=== PATIENT | female | born 1945 | race Caucasian/White ===

== ENCOUNTER → 2017-04-21 | Outpatient (CLI) | payer MEDICARE ==
--- NOTE | 2017-04-23 08:13 | MM ---
Reason for exam: screening (asymptomatic). Last mammogram was performed 1 year and 2 months ago. History: Patient is postmenopausal and has history of endometrial cancer at age 52. Family history of breast cancer in daughter at age 45. Benign right mammotome panel of the right breast, November 19, 2011. 2 benign cyst aspirations of the left breast. Benign excisional biopsy of the left breast. Took hormonal contraceptives for 3 years beginning at age 28. Physical Findings: A clinical breast exam by your physician is recommended on an annual basis and results should be correlated with mammographic findings. MG 3D Screening Mammo W/Cad Bilateral CC and MLO view(s) were taken. Prior study comparison: February 20, 2016, bilateral MG 3d screening mammo w/cad. November 21, 2014, bilateral MG screening mammo w CAD. November 18, 2013, bilateral digital screening mammo w/CAD. There are scattered fibroglandular densities. Finding: There are typically benign vascular calcifications in both breasts. Previous mammotome biopsy in the right breast. There is no discrete abnormality. ASSESSMENT: Benign, BI-RAD 2 RECOMMENDATION: Routine screening mammogram of both breasts in 1 year.
== END | disposition home or self-care (01) ==
LOC: RADMAMWWP 13:23
PROVIDERS: ATTEND Obstetrics & Gynecology
DX: Z12.31 Encounter for screening mammogram for malignant neoplasm of breast (principal); Z80.3 Family history of malignant neoplasm of breast
CPT/HCPCS: 77063; G0202

== ENCOUNTER → 2017-04-25 | Outpatient (CLI) | payer MEDICARE ==
--- NOTE | 2017-04-28 07:38 | BD ---
EXAMINATION TYPE: MG DEXA axial skeleton. DATE OF EXAM: 04/25/2017 COMPARISON: NONE CLINICAL HISTORY: 71-year-old female postmenopausal screening for osteoporosis Height: 65 Weight: 146.5 FRAX RISK QUESTIONS: Alcohol (3 or more units per day): no Family History (Parent hip fracture): no Glucocorticoids (More than 3mos): no (Ex: prednisone, prednisolone, methylprednisolone, dexamethasone, and hydrocortisone). History of Fracture in Adulthood: no Secondary Osteoporosis: 1. Type 1 Diabetes: no 2. Hyperthyroidism: no 3. Menopause before 45: no 4. Malnutrition: no 5. Chronic liver disease: no Rheumatoid Arthritis: no Current Tobacco Use: no RISK FACTORS HISTORY OF: Hip Fracture (Right/Left): no Spine Fracture: no History of Wrist Fracture: no Surgery to Spine/Hip(right/left)/Wrist (right/left): no Family History of Osteoporosis: no Active: yes Diet low in dairy products/other sources of calcium: no Postmenopausal woman: age 54 Lost more than 2 inches in height since high school: yes Frequent falls: no Poor Health: no Hyperparathyroidism: no Adrenal Insufficiency: no MEDICATIONS: vitamins, amlodipine, simvastatin, lisinopril, meclizine, xanax, aspirin, travatan Thyroid Medications: levothyroxine How Lon-4 years Additional History: EXAM MEASUREMENTS: Bone mineral densitometry was performed using the [employer] System. Bone mineral density as measured about the Lumbar spine is: ----- L1-L4(G/cm2): 1.440 T Score Values are as follows: ----- L2: 1.2 ----- L3: 2.9 ----- L4: 3.4 ----- L1-L4: 2.2 Bone mineral density baseline here Bone mineral density about the R hip (g/cm2): 0.904 Bone mineral density about the L hip (g/cm2): 0.897 T Score values are as follows: -----R Neck: -1.0 -----L Neck: -1.0 -----R Total: -0.8 -----L Total: -0.7 Bone mineral density baseline IMPRESSION: Normal (Values between +1 and -1 indicate normal bone mass). Note that measurements at the hips bord kathryn on osteopenia. Consider repeating this study in 5 years or sooner if there is some new clinica l indication. NOTE: T-SCORE=SD OF THE YOUNG ADULT MEAN.
== END | disposition home or self-care (01) ==
LOC: RADBDWWP 13:09
PROVIDERS: ATTEND Family Medicine
DX: M85.851 Other specified disorders of bone density and structure, right thigh (principal); M85.852 Other specified disorders of bone density and structure, left thigh
CPT/HCPCS: 77080

== ENCOUNTER 2017-11-12 11:27 | Emergency (ER) | payer MEDICARE ==
--- NOTE | 2017-11-12 11:48 | ED ---
General Adult HPI - General Chief complaint: Upper Respiratory Infection Stated complaint: Chest pain Time Seen by Provider: 11/12/17 11:37 Source: patient, RN notes reviewed Mode of arrival: ambulatory Limitations: no limitations - History of Present Illness Initial comments: Patient 72-year-old female presenting to the emergency room today with a chief complaint of cough congestion body aches and chills over the last 4 days. Patient mitts that last night she experienced a chest pressure anteriorly wrapping around to her back. She states she is not having this pain at this time. She states she had pain similar to this a few months ago when she was diagnosed with influenza. Patient admits that she was at the hospital at that time checked and released. Patient states that she went to urgent care earlier today had an EKG performed. States that he did not have a flu swabs available advised come here to the emergency room for further evaluation. She denies any chest pain at this time. She states she has had a cough congestion. States cough has been dry. She states she has been running temperatures 101 at home at the highest. States she has been taking a fever process expert. States she did not take it yet this morning she did take some cough medication. She does have some generalized aches. She denies any other complaints. Patient denies any recent shortness of breath, back pain, abdominal pain, nausea or vomiting, numbness or tingling, dysuria or hematuria, constipation or diarrhea, headaches or visual changes, or any other complaints. - Related Data Home Medications Medication Instructions Recorded Confirmed ALPRAZolam [Xanax] 0.5 mg PO BID PRN 08/03/17 11/12/17 Aspirin EC [Ecotrin Low Dose] 81 mg PO HS 08/03/17 11/12/17 Brimonidine Tartrate/Timolol 1 drop RIGHT EYE BID 08/03/17 11/12/17 [Combigan 0.2%-0.5% Eye Drops] Cholecalciferol [Vitamin D3] 1,000 unit PO DAILY 08/03/17 11/12/17 Levothyroxine Sodium [Synthroid] 88 mcg PO DAILY 08/03/17 11/12/17 Lisinopril-Hctz 20-12.5 mg 1 tab PO DAILY 08/03/17 11/12/17 [Zestoretic 20-12.5] Magnesium Oxide [Mag-Ox] 250 mg PO DAILY 08/03/17 11/12/17 Meclizine [Antivert] 25 mg PO TID PRN 08/03/17 11/12/17 Multivit with Calcium,Iron,Min 1 tab PO DAILY 08/03/17 11/12/17 [Women's Multivitamin] Simvastatin [Zocor] 20 mg PO HS 08/03/17 11/12/17 Travoprost [Travatan Z 0.004%] 1 drop BOTH EYES HS 08/03/17 11/12/17 amLODIPine [Norvasc] 5 mg PO HS 08/03/17 11/12/17 Allergies Allergy/AdvReac Type Severity Reaction Status Date / Time No Known Allergies Allergy Verified 11/12/17 11:52 Review of Systems ROS Statement: Those systems with pertinent positive or pertinent negative responses have been documented in the HPI. ROS Other: All systems not noted in ROS Statement are negative. Past Medical History Past Medical History: Cancer, Hyperlipidemia, Hypertension Additional Past Medical History / Comment(s): glaucoma, History of Any Multi-Drug Resistant Organisms: None Reported Past Surgical History: Cholecystectomy, Hysterectomy Additional Past Surgical History / Comment(s): uterinbe cancer, cataract surgery Past Psychological History: No Psychological Hx Reported Smoking Status: Never smoker Past Alcohol Use History: None Reported Past Drug Use History: None Reported General Exam - General Exam Comments Initial Comments: General: The patient is awake and alert, in no distress, and does not appear acutely ill. Eye: Pupils are equal, round and reactive to light, extra-ocular movements are intact. No nystagmus. There is normal conjunctiva bilaterally. No signs of icterus. Ears, nose, mouth and throat: There are moist mucous membranes and no oral lesions. Neck: The neck is supple, there is no tenderness or JVD. Cardiovascular: There is a regular rate and rhythm. No murmur, rub or gallop is appreciated. Respiratory: Lungs are clear to auscultation, respirations are non-labored, breath sounds are equal. No wheezes, stridor, rales, or rhonchi. Musculoskeletal: Normal ROM, no tenderness. Strength 5/5. Sensation intact. Pulses equal bilaterally 2+. Neurological: A&O x 3. CN II-XII intact, There are no obvious motor or sensory deficits. Coordination appears grossly intact. Speech is normal. Skin: Skin is warm and dry and no rashes or lesions are noted. Psychiatric: Cooperative, appropriate mood & affect, normal judgment. Limitations: no limitations Course Vital Signs 11/12/17 11/12/17 11:32 13:44 Temperature 99.0 F 97.7 F Pulse Rate 75 71 Respiratory 18 20 Rate Blood Pressure 180/78 174/74 O2 Sat by Pulse 98 100 Oximetry EKG Findings - EKG Comments: EKG Findings:: EKG performed at 1243: shows normal sinus rhythm at 63 bpm. ID interval 158. QRS 98. QT/QTC 398/407. No acute ST changes. Medical Decision Making - Medical Decision Making Patient reexamined at the central no signs of distress. Patient's labs been reviewed unremarkable. Chest x-ray is negative. No sign of pneumonia. Patient does admit to bodyaches fever or chills over the last 4 days. Influenza test was negative. Emergency room. Was discussed that most likely a viral illness continue with medications that she's taking at home for the symptoms. Patient's EKG showed no changes. Case discussed with attending physician Dr. Keeys. Patient will be discharged home to follow-up the family physician over the next 2 days returning if any symptoms increase or worsen. - Lab Data Result diagrams: 11/12/17 12:30 11/12/17 12:30 Lab Results 11/12/17 11/12/17 11/12/17 Range/Units 12:30 12:30 12:30 WBC 9.2 (3.8-10.6) k/uL RBC 4.06 (3.80-5.40) m/uL Hgb 12.1 (11.4-16.0) gm/dL Hct 34.2 (34.0-46.0) % MCV 84.2 (80.0-100.0) fL MCH 29.8 (25.0-35.0) pg MCHC 35.4 (31.0-37.0) g/dL RDW 12.3 (11.5-15.5) % Plt Count 265 (150-450) k/uL Neutrophils % 66 % Lymphocytes % 21 % Monocytes % 8 % Eosinophils % 3 % Basophils % 0 % Neutrophils # 6.1 (1.3-7.7) k/uL Lymphocytes # 1.9 (1.0-4.8) k/uL Monocytes # 0.7 (0-1.0) k/uL Eosinophils # 0.3 (0-0.7) k/uL Basophils # 0.0 (0-0.2) k/uL PT (9.0-12.0) sec INR (<1.2) APTT (22.0-30.0) sec Sodium 136 L (137-145) mmol/L Potassium 3.9 (3.5-5.1) mmol/L Chloride 96 L (98-107) mmol/L Carbon Dioxide 28 (22-30) mmol/L Anion Gap 12 mmol/L BUN 15 (7-17) mg/dL Creatinine 0.70 (0.52-1.04) mg/dL Est GFR (CKD-EPI)AfAm >90 (>60 ml/min/1.73 sqM) Est GFR (CKD-EPI)NonAf 86 (>60 ml/min/1.73 sqM) Glucose 98 (74-99) mg/dL Calcium 9.8 (8.4-10.2) mg/dL Magnesium 1.5 L (1.6-2.3) mg/dL Total Bilirubin 0.5 (0.2-1.3) mg/dL AST 22 (14-36) U/L ALT 23 (9-52) U/L Alkaline Phosphatase 68 (38-126) U/L Total Creatine Kinase 53 (30-135) U/L CK-MB (CK-2) 1.1 (0.0-2.4) ng/mL CK-MB (CK-2) Rel Index 2.1 Troponin I <0.012 (0.000-0.034) ng/mL Total Protein 6.9 (6.3-8.2) g/dL Albumin 4.1 (3.5-5.0) g/dL Influenza Type A RNA (Not Detectd) Influenza Type B (PCR) (Not Detectd) 11/12/17 11/12/17 Range/Units 12:30 12:44 WBC (3.8-10.6) k/uL RBC (3.80-5.40) m/uL Hgb (11.4-16.0) gm/dL Hct (34.0-46.0) % MCV (80.0-100.0) fL MCH (25.0-35.0) pg MCHC (31.0-37.0) g/dL RDW (11.5-15.5) % Plt Count (150-450) k/uL Neutrophils % % Lymphocytes % % Monocytes % % Eosinophils % % Basophils % % Neutrophils # (1.3-7.7) k/uL Lymphocytes # (1.0-4.8) k/uL Monocytes # (0-1.0) k/uL Eosinophils # (0-0.7) k/uL Basophils # (0-0.2) k/uL PT 9.5 (9.0-12.0) sec INR 1.0 (<1.2) APTT 20.6 L (22.0-30.0) sec Sodium (137-145) mmol/L Potassium (3.5-5.1) mmol/L Chloride (98-107) mmol/L Carbon Dioxide (22-30) mmol/L Anion Gap mmol/L BUN (7-17) mg/dL Creatinine (0.52-1.04) mg/dL Est GFR (CKD-EPI)AfAm (>60 ml/min/1.73 sqM) Est GFR (CKD-EPI)NonAf (>60 ml/min/1.73 sqM) Glucose (74-99) mg/dL Calcium (8.4-10.2) mg/dL Magnesium (1.6-2.3) mg/dL Total Bilirubin (0.2-1.3) mg/dL AST (14-36) U/L ALT (9-52) U/L Alkaline Phosphatase (38-126) U/L Total Creatine Kinase (30-135) U/L CK-MB (CK-2) (0.0-2.4) ng/mL CK-MB (CK-2) Rel Index Troponin I (0.000-0.034) ng/mL Total Protein (6.3-8.2) g/dL Albumin (3.5-5.0) g/dL Influenza Type A RNA Not Detected (Not Detectd) Influenza Type B (PCR) Not Detected (Not Detectd) Disposition Clinical Impression: Upper respiratory infection Disposition: HOME SELF-CARE Condition: Good Instructions: Upper Respiratory Infection (ED) Additional Instructions: Please use medication as discussed. Please follow-up with family doctor in the next 2 days of symptoms have not improved. Please return to emergency room if the symptoms increase or worsen or for any other concerns. Referrals: Marianne Celis MD [Primary Care Provider] - 1-2 days Time of Disposition: 13:48
[2017-11-12 12:48] LABS: Basophils % (A) 0 %; Eosinophils # (A) 0.3 k/uL (0-0.7); Eosinophils % (A) 3 %; HCT 34.2 % (34.0-46.0); HGB 12.1 gm/dL (11.4-16.0); Lymphocytes # (A) 1.9 k/uL (1.0-4.8); Lymphocytes % (A) 21 %; MCH 29.8 pg (25.0-35.0); MCHC 35.4 g/dL (31.0-37.0); MCV 84.2 fL (80.0-100.0); Mean Platelet Volume 7.6; Monocytes # (A) 0.7 k/uL (0-1.0); Monocytes % (A) 8 %; Neutrophils # (A) 6.1 k/uL (1.3-7.7); Neutrophils % (A) 66 %; Platelet Count 265 k/uL (150-450); RBC 4.06 m/uL (3.80-5.40); RDW 12.3 % (11.5-15.5); WBC 9.2 k/uL (3.8-10.6)
[2017-11-12 13:03] LABS: Partial Thromboplastin Time 20.6 sec (22.0-30.0); Prothrombin Time 9.5 sec (9.0-12.0)
[2017-11-12 13:06] LABS: ALT 23 U/L (9-52); AST 22 U/L (14-36); Albumin 4.1 g/dL (3.5-5.0); Alkaline Phosphatase 68 U/L (38-126); Anion Gap 12 mmol/L; Blood Urea Nitrogen 15 mg/dL (7-17); Calcium 9.8 mg/dL (8.4-10.2); Carbon Dioxide 28 mmol/L (22-30); Chloride 96 mmol/L (98-107); Glucose 98 mg/dL (74-99); Magnesium 1.5 mg/dL (1.6-2.3); Potassium 3.9 mmol/L (3.5-5.1); Sodium 136 mmol/L (137-145); Total Bilirubin 0.5 mg/dL (0.2-1.3); Total Protein 6.9 g/dL (6.3-8.2)
[2017-11-12 13:13] LABS: Creatine Kinase 53 U/L (30-135)
--- NOTE | 2017-11-12 13:13 | XR ---
EXAMINATION TYPE: XR chest 2V DATE OF EXAM: 11/12/2017 COMPARISON: 08/03/2017 INDICATION: Chest pain cough TECHNIQUE: Frontal and lateral views of the chest are obtained. FINDINGS: The heart size is normal. The pulmonary vasculature is normal. The lungs are clear. IMPRESSION: 1. No acute pulmonary process.
[2017-11-12 13:25] LABS: Creatine Kinase MB 1.1 ng/mL (0.0-2.4); Troponin I <0.012 ng/mL (0.000-0.034)
[2017-11-12 13:45] VITALS: BP 174/74; PULSE 71; RESP 20; TEMP 97.7
== END 2017-11-12 13:58 | disposition home or self-care (01) ==
LOC: EC 11:27
DX: J06.9 Acute upper respiratory infection, unspecified (principal); R07.89 Other chest pain; E78.5 Hyperlipidemia, unspecified; I10 Essential (primary) hypertension; Z85.42 Personal history of malignant neoplasm of other parts of uterus; Z79.82 Long term (current) use of aspirin; Z79.899 Other long term (current) drug therapy
CPT/HCPCS: 36415; 71046; 80053; 82550; 82553; 83735; 84484; 85025; 85610; 85730; 87502; 93005; 99284

== ENCOUNTER → 2018-05-06 | Outpatient (CLI) | payer MEDICARE ==
--- NOTE | 2018-05-08 10:21 | MM ---
Reason for exam: screening (asymptomatic). Last mammogram was performed 1 year ago. History: Patient is postmenopausal and has history of endometrial cancer at age 52. Family history of breast cancer in daughter at age 45. Benign right mammotome panel of the right breast, November 19, 2011. 2 benign cyst aspirations of the left breast. Benign excisional biopsy of the left breast. Took hormonal contraceptives for 3 years beginning at age 28. Physical Findings: A clinical breast exam by your physician is recommended on an annual basis and results should be correlated with mammographic findings. MG 3D Screening Mammo W/Cad Bilateral CC and MLO view(s) were taken. Prior study comparison: April 21, 2017, bilateral MG 3d screening mammo w/cad. February 20, 2016, bilateral MG 3d screening mammo w/cad. There are scattered fibroglandular densities. Previous mammotome biopsy in the right breast. No significant changes when compared with prior studies. ASSESSMENT: Negative, BI-RAD 1 RECOMMENDATION: Routine screening mammogram of both breasts in 1 year.
== END | disposition home or self-care (01) ==
LOC: RADMAMWWP 12:42
PROVIDERS: ATTEND Obstetrics & Gynecology
DX: Z12.31 Encounter for screening mammogram for malignant neoplasm of breast (principal)
CPT/HCPCS: 77063; 77067

== ENCOUNTER → 2018-05-25 | Outpatient (CLI) | payer MEDICARE ==
[2018-05-25 14:05] LABS: HCT 37.3 % (34.0-46.0); HGB 12.5 gm/dL (11.4-16.0); MCH 29.7 pg (25.0-35.0); MCHC 33.4 g/dL (31.0-37.0); Mean Platelet Volume 6.7; Platelet Count 468 k/uL (150-450); RBC 4.19 m/uL (3.80-5.40); RDW 12.3 % (11.5-15.5); WBC 10.8 k/uL (3.8-10.6)
[2018-05-25 14:19] LABS: Appearance,Urine Clear (Clear); Bacteria,Urine Rare /hpf; Bilirubin,Urine Negative (Negative); Blood,Urine Negative (Negative); Color,Urine Light Yellow; Glucose,Urine (UA) Negative (Negative); Ketones,Urine Negative (Negative); Leukocyte Esterase,Urine Small (Negative); Nitrite,Urine Negative (Negative); PH, Urine 6.5 (5.0-8.0); Protein,Urine Negative (Negative); RBC,Urine <1 /hpf (0-5); Specific Gravity,Urine 1.007 (1.001-1.035); Urobilinogen,Urine <2.0 mg/dL (<2.0); WBC,Urine 4 /hpf (0-5)
[2018-05-25 14:25] LABS: Albumin 4.4 g/dL (3.5-5.0); Calcium 10.3 mg/dL (8.4-10.2); Potassium 4.8 mmol/L (3.5-5.1); Total Bilirubin 0.4 mg/dL (0.2-1.3); Total Protein 7.5 g/dL (6.3-8.2)
[2018-05-25 14:27] LABS: Partial Thromboplastin Time 22.5 sec (22.0-30.0); Prothrombin Time 9.6 sec (9.0-12.0)
== END | disposition home or self-care (01) ==
LOC: LABPAT 13:17
PROVIDERS: ATTEND Orthopaedic Surgery
DX: Z01.818 Encounter for other preprocedural examination (principal); Z01.812 Encounter for preprocedural laboratory examination; Z79.01 Long term (current) use of anticoagulants
CPT/HCPCS: 36415; 80053; 81001; 85027; 85610; 85730; 87070; 93005

== ENCOUNTER 2018-06-15 05:39 | Inpatient (IN) | payer MEDICARE ==
[2018-06-05 17:27] VITALS: BMI 25.0
[~2018-06-15 05:39] MED LIST: ACETAMINOPHEN TAB 500 MG TAB PO ONE; ONDANSETRON 4 MG/2 ML VIAL IVP ONE; TRANEXAMIC ACID 1,000 MG in SODIUM CHLORIDE 0.9% 50 ML IVPB ONE; ceFAZolin IN SWFI 2 GM/20 ML SYRINGE IVP ONE
[2018-06-15] MEDS ORDERED: HYDROmorphone 1 MG/ML 1 ML SYRINGE IVP PRN ×4 (05:59→10:06)
[2018-06-15] MEDS ORDERED: LACTATED RINGERS 1,000 ML IV SCH (05:59)
[2018-06-15] MEDS ORDERED: LIDOCAINE 1% 20 ML VIAL (10MG/ML) FOR IV START INTRADERMA PRN (05:59)
[2018-06-15] MEDS ORDERED: PROPOFOL 10 MG/ML 20 ML VIAL IV ONE (07:58)
[2018-06-15] MEDS ORDERED: fentaNYL (PF) 50 MCG/ML 2 ML AMP ONE (07:58)
[2018-06-15] MEDS ORDERED: MIDAZOLAM 2 MG/2 ML VIAL ONE (07:58)
[2018-06-15] MEDS ORDERED: SODIUM CHLORIDE 0.9% 100 ML BAG ONE (07:58)
[2018-06-15] MEDS ORDERED: TRANEXAMIC ACID 1,000 MG/10 ML VIAL ONE (07:58)
[2018-06-15] MEDS ORDERED: ePHEDrine SULFATE/0.9% NACL/PF 50 MG/5 ML SYRINGE IV ONE (07:58)
[2018-06-15] MEDS ORDERED: ROPIVACAINE 246.25 MG, EPINEPHrine 0.5 MG, KETOROLAC 30 MG, cloNIDine HCL/PF 80 MCG, WA... MISCELLANE ONE ×10 (07:59→08:04)
[2018-06-15] MEDS ORDERED: ceFAZolin 3,000 MG in SODIUM CHLORIDE 0.9% IRRIGATIO 3,000 ML IRRIGATION ONE (08:37)
--- NOTE | 2018-06-15 09:51 | P.OP ---
Date of Procedure: 06/15/18 Procedure(s) Performed: PREOPERATIVE DIAGNOSIS: Left knee severe osteoarthritis with genu varum POSTOPERATIVE DIAGNOSIS: Left knee severe osteoarthritis with genu varum OPERATION: Left knee cemented total replacement arthroplasty. ANESTHESIA: Spinal ESTIMATED BLOOD LOSS: 100 ml. SQL SSRS SSIS DEVELOPER: Elisa Taylor PA-C (assistance with: patient positioning, retraction, exposure, hemostasis, leg positioning, implantation, irrigation, closure, dressing) COMPLICATIONS: None apparent. COMPONENTS IMPLANTED: Persona system from [employer] INDICATIONS: Mrs. Turner is a 73 year old female with a history of left knee osteoarthritis. Conservative treatment has been tried and has been unsuccessful in controlling symptoms adequately. The operation of knee replacement has been discussed at length in the office, as well as potential risks and complications. These are inclusive of, but not limited to: bleeding, infection, scarring, discomfort, blood vessel and nerve damage, need for further surgery, failure to relieve symptoms, persistence, recurrence, or worsening of problems, loosening, dislocation, wear, blood clot, pulmonary embolism, , gait dysfunction, stiffness, and other risks as discussed in the office. The patient elects to proceed and the consent form has been signed. PROCEDURE: The patient was taken to the operating room and positioned on the operating room table in the supine position. Anesthesia was initiated. Care was taken to make sure that all pressure points were adequately padded. The operative lower extremity was prepped and draped in the usual aseptic fashion using ChloraPrep. Ioban drape was used for the case and the patient received intravenous antibiotics within one hour of the incision. A pneumotourniquet and leg thayer were used for the case. The limb was exsanguinated with an Esmarch bandage and the tourniquet was inflated to 350 mmHg. Time-out was called confirming the patient's identity, side, procedure and administration of antibiotics and tranexamic acid, 1 g IV. The incision was then created midline directly over the knee, carried down through skin and into the subcutaneous tissues and down to fascia. Full thickness subcutaneous medial flap was developed. Medial parapatellar arthrotomy was performed and the interior of the knee was inspected. There was end-stage osteoarthritis of the knee with a mild to moderate genu varum type deformity. The fat pad was excised and proximal medial release on the tibia was completed using meticulous dissection and a curved osteotome. The anterior cruciate ligament was taken down. Note was made of significant attrition of the anterior and significant degenerative appearance of the posterior cruciate ligaments. The exposure was excellent. The knee was flexed 90 degrees and the patella was everted. A spot was chosen on the femur approximately 1 cm anterior to the posterior cruciate ligament insertion and an intramedullary hole was created within the femur. The intramedullary guide was then set to 5 degrees of valgus. The distal cutting block was attached and pinned into position. An appropriate amount of distal femoral resection was set. The oscillating saw was then used to make the distal femoral cut. This cut was confirmed to be flat with the flat end of an osteotome. The retractors were placed around the tibia and the tibial surface was addressed. The angle and depth of resection was adjusted using an extramedullary cutting guide. The guide had a built-in 3 degree posterior slope cut. Once the cutting guide was adjusted appropriately and in line with the axis of the tibia and confirmed to be in good position in relation to the second metatarsal and transmalleolar axis, the tibial cut was then created with protection of the posterior neurovascular structures and the collateral ligaments. The tibial cut surface was removed and sized. Femoral sizing was then accomplished using anterior referencing. Care was taken to analyze the posterior condyles for signs of deficiency or severe wear, and adjustments to the guide were made, as appropriate. 3 degree external rotation pins were placed. The cutting jig for the femur was applied to these pins. The planned cuts were further analyzed prior to performing them with the oscillating saw. No femoral notching was produced. Bone fragments were removed and the cut surfaces were finished, as necessary, with a reciprocating saw. Spacer block technique was then used to confirm that the flexion and extension gaps were equal. Soft tissue releases and adjustment of the tibial and/or femoral cuts were made, as necessary, until the gaps were equal. This included release of the posterior cruciate ligament, which was tight in this patient. The femur was then further finished for a posterior cruciate ligament substituting component. Patellar resurfacing was performed using a reamer. The size of the required patellar component was estimated and the patellar surface was then reamed down to a residual thickness which would recreate the [place] thickness with the component. The exact placement of the patellar component was adjusted for position based on preoperative x-rays and intraoperative findings. Prior to placing trial components, anesthetic solution consisting of ropivicaine with epinephrine, ketorolac, and clonidine was injected carefully and methodically in a grid pattern using aspiration technique into the soft tissue around the knee circumferentially, starting with the deeper tissues first and progressing to fascia, and then finally the skin/subcutaneous tissue. Particular care was taken when injecting the posterior capsule. The trial components were inserted. The tibial tray was allowed to self center and the patella was noted to track very well. The position of the tibial component was marked and the tibia was then finished for a stemmed tibial component. Cement was mixed on the back table and applied to the final components. Trial components were removed and the cut surfaces of the bone were pulse lavaged thoroughly and dried. Cement was then applied to the tibial surface and pressurized into the surface using finger pressurization technique. The tibial component was then applied and excess cement was removed after it was impacted securely and noted to be flush with the cut surface. In similar fashion, the cement was applied to the cut femoral surface, pressurized in using finger pressurization and the component was impacted into place. Excess cement was removed. The polyethylene spacer was then implanted and locked into position. The patellar component was then applied in similar technique and a patellar clamp was used to hold the patella in place as the cement hardened. Once the cement had fully hardened, the knee was reinspected. Any other cement extrusion was removed and final kinematic testing showed range of motion from 0 to 130 degrees with excellent stability, both medially and laterally and appropriate alignment of the leg. Patellar tracking was excellent. The knee was then thoroughly pulse lavaged with normal saline. The tourniquet was deflated and hemostasis was obtained with electrocautery and IV tranexamic acid, 1 g given prior to inflation of the tourniquet and another gram given at the time of closure. Closure was with #2 Ethibond in the fascia and supplemented with #2 Quill, 2-0 Vicryl suture was used for the subcutaneous tissues and 3-0 Quill for the skin. Dermabond/Steri-Strips were then applied. A lightly compressive dressing was applied using Webril and an Cecilio wrap. The patient was then transferred to stretcher and taken to the recovery room in stable condition. Sponge and needle counts were correct.
[2018-06-15] MEDS ORDERED: LACTATED RINGERS 1,000 ML IV ONE (09:53)
[2018-06-15] MEDS ORDERED: NALOXONE 0.4 MG/ML 1 ML VIAL IV PRN (10:06)
[2018-06-15] MEDS ORDERED: NA PHOS,M-B/NA PHOS,DI-BA 133 ML ENEMA RECTAL PRN (10:06)
[2018-06-15] MEDS ORDERED: BISACODYL 10 MG SUPP RECTAL PRN (10:06)
[2018-06-15] MEDS ORDERED: MAGNESIUM HYDROXIDE 2,400 MG/10 ML CUP PO PRN (10:06)
--- NOTE | 2018-06-15 10:38 | XR ---
EXAMINATION TYPE: XR knee limited LT DATE OF EXAM: 06/15/2018 COMPARISON: NONE TECHNIQUE: Two views submitted HISTORY: Post op FINDINGS: There is a prosthetic knee in near anatomic alignment. There is soft tissue edema and emphysema. IMPRESSION: 1. Postoperative change. Appears in near-anatomic alignment
[2018-06-15] MEDS: LACTATED RINGERS 1,000 ML IV SCH ×2 (11:53→17:23)
[2018-06-15] MEDS: HYDROcodone/APAP 5-325MG 1 EACH TAB PO PRN (14:33)
--- NOTE | 2018-06-15 16:20 | P.CONS ---
History of Present Illness - Reason for Consult Consult date: 06/15/18 HTN - Chief Complaint L knee pain - History of Present Illness The patient is a 73 yo F with the PMH of HTN, HLD, hypothyroidism, port-wine stain of R face, and glaucoma who is POD # 1 for L knee total arthroplasty. The patient underwent the arthroplasty for severe osteoarthritis of the knee. The patient seen while seated comfortably in chair at bedside. She notes that aside from L knee post-op pain, 5/10, non-radiating, she has no other complaints. She denied chest pain, SOB, nausea, vomiting, abdominal pain, dizziness, headache, visual changes, fever, chills, or cough. She has been ambulating w/ walker to the restroom w/ good urine output. The patient was counseled on need for PPI while on NSAIDs to decrease risk of PUD. Review of Systems Pertinent positives and negatives as discussed in HPI, a complete review of systems was performed and all other systems are negative. Past Medical History Past Medical History: Cancer, Hyperlipidemia, Hypertension Additional Past Medical History / Comment(s): glaucoma, History of Any Multi-Drug Resistant Organisms: None Reported Past Surgical History: Cholecystectomy, Hysterectomy Additional Past Surgical History / Comment(s): uterinbe cancer, cataract surgery Past Anesthesia/Blood Transfusion Reactions: Postoperative Nausea & Vomiting ( PONV) Smoking Status: Never smoker - Past Family History Mother Family Medical History: No Reported History Medications and Allergies Home Medications Medication Instructions Recorded Confirmed Type ALPRAZolam [Xanax] 0.5 mg PO TID PRN 08/03/17 06/15/18 History Aspirin EC [Ecotrin Low Dose] 81 mg PO HS 08/03/17 06/15/18 History Brimonidine Tartrate/Timolol 1 drop RIGHT EYE BID 08/03/17 06/15/18 History [Combigan 0.2%-0.5% Eye Drops] Cholecalciferol [Vitamin D3] 1,000 unit PO DAILY 08/03/17 06/15/18 History Levothyroxine Sodium [Synthroid] 88 mcg PO DAILY 08/03/17 06/15/18 History Lisinopril-Hctz 20-12.5 mg 1 tab PO DAILY 08/03/17 06/15/18 History [Zestoretic 20-12.5] Simvastatin [Zocor] 20 mg PO HS 08/03/17 06/15/18 History Travoprost [Travatan Z 0.004%] 1 drop BOTH EYES HS 08/03/17 06/15/18 History amLODIPine [Norvasc] 5 mg PO HS 08/03/17 06/15/18 History Melatonin 5 mg PO HS 06/05/18 06/15/18 History Multivitamins, Thera [Multivitamin 1 tab PO DAILY 06/05/18 06/15/18 History (formulary)] Biotin 1,000 Mcg 1,000 mcg PO DAILY 06/15/18 06/15/18 History HYDROcodone/APAP 5-325MG [[place] 1 - 2 each PO Q4-6H PRN #50 tab 06/15/18 Rx 5-325] Sennosides-Docusate Sodium 1 tab PO BID #60 tablet 06/15/18 Rx [Senokot-S] Warfarin [Coumadin] 2.5 mg PO DAILY #1 tab 06/15/18 Rx Allergies Allergy/AdvReac Type Severity Reaction Status Date / Time No Known Allergies Allergy Verified 06/15/18 10:29 Physical Exam Vitals: Vital Signs Temp Pulse Resp BP Pulse Ox 06/15/18 15:00 101.5 F H 117 H 106/68 93 L 06/15/18 12:00 81 148/84 97 06/15/18 11:30 73 130/77 96 06/15/18 11:15 71 150/80 96 06/15/18 11:06 71 147/72 06/15/18 10:30 70 16 129/60 97 06/15/18 10:15 60 16 145/66 97 06/15/18 10:06 97.7 F 76 141/74 96 06/15/18 10:01 97 F L 61 16 100/51 94 L 06/15/18 06:18 98.0 F 80 16 152/71 99 Intake and Output 06/15/18 06/15/18 06/15/18 06:59 14:59 22:59 Intake Total 400 1137 Output Total 450 Balance 400 687 Intake: IV 400 901 Oral 236 Output: Urine 350 Estimated Blood Loss 100 General: [non toxic], [no distress], [appears at stated age], [normal weight] Derm: [Large purple plaque over R face, extending to R upper chest] [warm], [dry ] Head: [atraumatic], [normocephalic], [symmetric] Eyes: [EOMI], [no lid lag], [anicteric sclera], [pupils equal round reactive to light] ENT: [Nose and ears atraumatic], [no thrush], [no pharyngeal erythema] Neck: [No thyromegaly], [no cervical lymphadenopathy], [trachea midline], [ supple] Mouth: [R lip swollen, non-tender, non-erythematous], [mucus membranes moist] Cardiovascular: [S1S2 reg], [no murmur], [positive posterior tibial pulse bilateral], [no edema], [capillary refill less than 2 seconds] Lungs: [CTA bilateral], [no rhonchi, no rales] , [no accessory muscle use] Abdominal: [soft], [ nontender to palpation], [no guarding], [no appreciable organomegaly], [normal bowel sounds] Ext: [no gross muscle atrophy], L knee dressings in place, clean, Strength 5/5 in ninfa UE and RLE Neuro: [ CN II-XI grossly intact], [light touch intact all 4 extremities], [ finger to nose within normal limits], Psych: [Alert], [oriented], [appropriate affect] Assessment and Plan Plan: Severe L knee OA s/p total L knee arthroplasty - As per orthopedic surgery - Currently on [place], Dilaudid, and Mobic for pain control - Started patient on Protonix. Advised patient on taking PPIs while she's on NSAIDs - PT/OT - Currently on Warfarin for DVT prophy. HTN - Resume home meds: Norvasc 5, Lisinopril-HCTZ 20-12.5 HLD - C/w Zocor 20 mg qhs Hypothyroidism - C/w Levothyroxine 88 mcg qam Glaucoma - Resume home meds DVT//GI prophy. - Warfarin - Protonix
[2018-06-15] MEDS: ceFAZolin IN SWFI 2 GM/20 ML SYRINGE IVP SCH ×2 (16:54→23:39)
[2018-06-15] MEDS ORDERED: WARFARIN 5 MG TAB PO ONE (18:00)
[2018-06-15] MEDS: amLODIPine 5 MG TAB PO SCH (21:32)
[2018-06-15] MEDS: SENNOSIDES-DOCUSATE SODIUM 1 EACH TAB PO SCH (21:32)
[2018-06-15] MEDS: ATORVASTATIN 10 MG TAB PO SCH (21:32)
[2018-06-15] MEDS: TIMOLOL 0.5% OPHTH DROPS 5 ML BTL RIGHT EYE SCH (21:33)
[2018-06-15] MEDS: BRIMONIDINE TARTRATE 0.2% DROPS 5 ML BTL RIGHT EYE SCH (21:33)
[2018-06-15] MEDS: LATANOPROST 0.005% OPHTH DROPS 2.5 ML BTL BOTH EYES SCH (21:33)
[2018-06-15] MEDS ORDERED: TEMAZEPAM 15 MG CAP PO PRN (22:00)
[2018-06-15] MEDS: ONDANSETRON 4 MG/2 ML VIAL IVP PRN (22:23)
[2018-06-15] MEDS ORDERED: ONDANSETRON 4 MG/2 ML VIAL IM STA (23:52)
[2018-06-16] MEDS ORDERED: ONDANSETRON 4 MG/2 ML VIAL IVP STA
[2018-06-16] MEDS: PROCHLORPERAZINE 10 MG TAB PO PRN ×3 (02:01→23:16)
[2018-06-16] MEDS: HYDROcodone/APAP 5-325MG 1 EACH TAB PO PRN ×3 (02:01→23:16)
[2018-06-16] MEDS: LACTATED RINGERS 1,000 ML IV SCH ×3 (02:10→16:52)
[2018-06-16] MEDS: LEVOTHYROXINE 88 MCG TAB PO SCH (05:32)
[2018-06-16 07:04] LABS: Basophils % (A) 0 %; Eosinophils # (A) 0.2 k/uL (0-0.7); Eosinophils % (A) 2 %; HGB 10.1 gm/dL (11.4-16.0); Lymphocytes % (A) 14 %; MCH 30.2 pg (25.0-35.0); MCV 86.5 fL (80.0-100.0); Mean Platelet Volume 6.3; Monocytes # (A) 0.7 k/uL (0-1.0); Monocytes % (A) 10 %; Neutrophils # (A) 5.2 k/uL (1.3-7.7); Neutrophils % (A) 71 %; Platelet Count 289 k/uL (150-450); RBC 3.35 m/uL (3.80-5.40); RDW 12.5 % (11.5-15.5); WBC 7.3 k/uL (3.8-10.6)
[2018-06-16 07:30] LABS: INR 1.7 (<1.2); Prothrombin Time 15.5 sec (9.0-12.0)
[2018-06-16] MEDS: MELOXICAM 7.5 MG TAB PO SCH (07:55)
[2018-06-16] MEDS: CHOLECALCIFEROL 1,000 UNIT TAB PO SCH (07:56)
[2018-06-16] MEDS: LISINOPRIL-HCTZ 20-12.5 MG 1 EACH TAB PO SCH (07:56)
[2018-06-16] MEDS: PANTOPRAZOLE 40 MG TABLET PO SCH (07:56)
[2018-06-16] MEDS: TIMOLOL 0.5% OPHTH DROPS 5 ML BTL RIGHT EYE SCH ×2 (07:57→21:55)
[2018-06-16] MEDS: BRIMONIDINE TARTRATE 0.2% DROPS 5 ML BTL RIGHT EYE SCH ×2 (07:57→21:55)
[2018-06-16] MEDS: ONDANSETRON 4 MG/2 ML VIAL IVP PRN (07:57)
--- NOTE | 2018-06-16 08:49 | P.PN ---
Subjective Progress Note Date: 06/16/18 Principal diagnosis: Status post left total knee arthroplasty This is a 73 year-old female post of left total knee arthroplasty. This is post -op day 1. The patient was evaluated at the bedside today. She is experiencing severe nausea this morning. She is passing gas but has not had a bowel movement since surgery. The patient denies abdominal pain, shortness of breath, and chest pain this morning. She states her pain is controlled at this time. The patient has not been up with physical therapy but has ambulated to the bathroom. Objective - Vital Signs Vital signs: Vital Signs Temp 99.0 F 06/16/18 00:11 Pulse 98 06/16/18 00:11 Resp 16 06/16/18 00:11 BP 153/79 06/16/18 00:11 Pulse Ox 94 L 06/16/18 00:11 Intake & Output 06/15/18 06/16/18 06/16/18 18:59 06:59 18:59 Intake Total 1437 1480 Output Total 450 Balance 987 1480 Weight 68.039 kg Intake: IV 901 Intake, IV Titration 300 1000 Amount Lactated Ringers 1,000 ml 300 1000 @ 100 mls/hr IV .Q10H TALITA Rx#:[id number] Oral 236 480 Output: Urine 350 Estimated Blood Loss 100 Other: # Voids 2 1 - Exam The patient does not appear in acute distress. Alert and orientated x3. Dressing is clean dry and intact. Incision appears fine with no erythema or active drainage. Calf is soft and nontender. Good foot and ankle motion without difficulty. Sensation and circulatory status is intact. - Labs CBC & Chem 7: 06/16/18 06:39 Labs: Abnormal Lab Results - Last 24 Hours (Table) 06/16/18 06/16/18 Range/Units 06:39 06:39 RBC 3.35 L (3.80-5.40) m/uL Hgb 10.1 L (11.4-16.0) gm/dL Hct 29.0 L (34.0-46.0) % PT 15.5 H (9.0-12.0) sec INR 1.7 H (<1.2) Assessment and Plan (1) Primary localized osteoarthritis of left knee Current Visit: Yes Status: Acute Code(s): M17.12 - UNILATERAL PRIMARY OSTEOARTHRITIS, LEFT KNEE SNOMED Code(s): 584263906 (2) Status post left knee replacement Current Visit: Yes Status: Acute Code(s): Z96.652 - PRESENCE OF LEFT ARTIFICIAL KNEE JOINT SNOMED Code(s): 2378825732203 Plan: 1. Continue pain control 2. Anticoagulation with Coumadin per protocol 3. Continue physical therapy and ambulation 4. Anticipate discharge home later today if nausea improves.
--- NOTE | 2018-06-16 09:32 | P.PN ---
Subjective Progress Note Date: 06/16/18 Principal diagnosis: Left knee osteoarthritis Patient is complaining of nausea this morning. She said that her nausea started last night and is now better after she received both Compazine and Zofran. She denies any vomiting. She was able to eat some broth this morning. She denies any abdominal pain. She had a normal bowel movement yesterday morning. Her abdomen is soft and nontender on exam. Objective - Vital Signs Vital signs: Vital Signs Temp 99.2 F 06/16/18 07:00 Pulse 104 H 06/16/18 07:00 Resp 16 06/16/18 07:00 BP 159/75 06/16/18 07:00 Pulse Ox 94 L 06/16/18 07:00 Intake & Output 06/15/18 06/16/18 06/16/18 18:59 06:59 18:59 Intake Total 1437 1480 200 Output Total 450 Balance 987 1480 200 Weight 68.039 kg Intake: IV 901 Intake, IV Titration 300 1000 Amount Lactated Ringers 1,000 ml 300 1000 @ 100 mls/hr IV .Q10H TALITA Rx#:[id number] Oral 236 480 200 Output: Urine 350 Estimated Blood Loss 100 Other: # Voids 2 1 2 - Exam General: The patient is awake and alert, in no distress Eye: there is normal conjunctiva bilaterally. Neck: The neck is supple, there is no JVD. Cardiovascular: Normal S1-S2, no S3-S4, no murmurs. Respiratory: Lungs clear to auscultation bilaterally Gastrointestinal: Abdomen is soft, nontender Musculoskeletal: There is no pedal edema. Neurological:. Speech is normal. Skin: Skin is warm and dry - Labs CBC & Chem 7: 06/16/18 06:39 Labs: Abnormal Lab Results - Last 24 Hours (Table) 06/16/18 06/16/18 Range/Units 06:39 06:39 RBC 3.35 L (3.80-5.40) m/uL Hgb 10.1 L (11.4-16.0) gm/dL Hct 29.0 L (34.0-46.0) % PT 15.5 H (9.0-12.0) sec INR 1.7 H (<1.2) Assessment and Plan Assessment: 1. Status post total left knee arthroplasty: Continue postoperative care per orthopedic. Pain control. 2. DVT prophylaxis with Coumadin per orthopedic protocol 3. Essential hypertension: Blood pressure well-controlled 4. Mixed hyperlipidemia on Zocor 5. Hypothyroidism on levothyroxin Today, I reviewed her medication list and lab work results. Continue current regimen. Nausea improving. Exact etiology unclear. If improving later on today patient may be discharged home. PT/OT as directed.
[2018-06-16] MEDS: ALPRAZolam 0.5 MG TAB PO PRN ×3 (10:38→23:16)
[2018-06-16] MEDS: MULTIVITAMINS, THERA 1 EACH TAB PO SCH (13:26)
[2018-06-16] MEDS ORDERED: WARFARIN 5 MG TAB PO ONE (18:00)
[2018-06-16] MEDS: amLODIPine 5 MG TAB PO SCH (21:54)
[2018-06-16] MEDS: SENNOSIDES-DOCUSATE SODIUM 1 EACH TAB PO SCH (21:54)
[2018-06-16] MEDS: ATORVASTATIN 10 MG TAB PO SCH (21:54)
[2018-06-16] MEDS: LATANOPROST 0.005% OPHTH DROPS 2.5 ML BTL BOTH EYES SCH (21:55)
[2018-06-17] MEDS: HYDROcodone/APAP 5-325MG 1 EACH TAB PO PRN ×2 (05:53→11:34)
[2018-06-17] MEDS: LEVOTHYROXINE 88 MCG TAB PO SCH (05:53)
[2018-06-17 07:05] VITALS: BP 144/77; PULSE 94; RESP 18; TEMP 98.3
[2018-06-17] MEDS: LACTATED RINGERS 1,000 ML IV SCH (07:37)
[2018-06-17] MEDS: TIMOLOL 0.5% OPHTH DROPS 5 ML BTL RIGHT EYE SCH (07:46)
[2018-06-17] MEDS: BRIMONIDINE TARTRATE 0.2% DROPS 5 ML BTL RIGHT EYE SCH (07:47)
[2018-06-17] MEDS: CHOLECALCIFEROL 1,000 UNIT TAB PO SCH (07:47)
[2018-06-17] MEDS: MELOXICAM 7.5 MG TAB PO SCH (07:47)
[2018-06-17] MEDS: ALPRAZolam 0.5 MG TAB PO PRN ×2 (07:48→12:52)
[2018-06-17] MEDS: PANTOPRAZOLE 40 MG TABLET PO SCH (07:48)
[2018-06-17] MEDS: LISINOPRIL-HCTZ 20-12.5 MG 1 EACH TAB PO SCH (07:48)
--- NOTE | 2018-06-17 08:46 | P.DS ---
Providers Date of admission: 06/15/18 05:39 Expected date of discharge: 06/17/18 Attending physician: Isrrael Sharp Consults: 06/15/18 10:06 Consult Physician Routine Consulting Provider: Karime Durand Consult Reason/Comments: Medical management Do you want consulting provider notified?: Yes Primary care physician: Marianne Celis MD - Discharge Diagnosis(es) (1) Primary localized osteoarthritis of left knee Current Visit: Yes Status: Acute (2) Status post left knee replacement Current Visit: Yes Status: Acute (3) Hypertension Current Visit: Yes Status: Acute (4) Hyperlipidemia Current Visit: Yes Status: Acute (5) Hypothyroidism Current Visit: Yes Status: Acute Hospital Course: This is a 73-year-old female who was last seen with complaint of continued left knee pain. The patient has a known history of degenerative arthritis of the left knee and presents to discuss surgical options. After discussion and consideration the patient elects to proceed with total left knee arthroplasty. The patient is seen preoperatively by her primary care physician and cleared for surgery. The patient is admitted to [facility] for total left knee arthroplasty. The procedures performed without complication or sequelae. He is doing well postoperatively. Vital signs are stable at discharge. Labs are stable at discharge. the patient is ambulating well with walker with minimal assistance. The patient is discharged to home on postop day #2 pending medical clearance. Please see orders and refer to the [facility] rec for accurate list of medications. Plan - Discharge Summary Discharge Rx Participant: Yes New Discharge Prescriptions: New Sennosides-Docusate Sodium [Senokot-S] 1 tab PO BID #60 tablet Warfarin [Coumadin] 2.5 mg PO DAILY #1 tab HYDROcodone/APAP 5-325MG [[place] 5-325] 1 - 2 each PO Q4-6H PRN #50 tab PRN Reason: Pain Continue amLODIPine [Norvasc] 5 mg PO HS Simvastatin [Zocor] 20 mg PO HS Cholecalciferol [Vitamin D3] 1,000 unit PO DAILY Levothyroxine Sodium [Synthroid] 88 mcg PO DAILY Aspirin EC [Ecotrin Low Dose] 81 mg PO HS ALPRAZolam [Xanax] 0.5 mg PO TID PRN PRN Reason: Anxiety Travoprost [Travatan Z 0.004%] 1 drop BOTH EYES HS Lisinopril-Hctz 20-12.5 mg [Zestoretic 20-12.5] 1 tab PO DAILY Brimonidine Tartrate/Timolol [Combigan 0.2%-0.5% Eye Drops] 1 drop RIGHT EYE BID Multivitamins, Thera [Multivitamin (formulary)] 1 tab PO DAILY Melatonin 5 mg PO HS Biotin 1,000 Mcg 1,000 mcg PO DAILY Discharge Medication List ALPRAZolam [Xanax] 0.5 mg PO TID PRN 08/03/17 [History] Aspirin EC [Ecotrin Low Dose] 81 mg PO HS 08/03/17 [History] Brimonidine Tartrate/Timolol [Combigan 0.2%-0.5% Eye Drops] 1 drop RIGHT EYE BID 08/03/17 [History] Cholecalciferol [Vitamin D3] 1,000 unit PO DAILY 08/03/17 [History] Levothyroxine Sodium [Synthroid] 88 mcg PO DAILY 08/03/17 [History] Lisinopril-Hctz 20-12.5 mg [Zestoretic 20-12.5] 1 tab PO DAILY 08/03/17 [History ] Simvastatin [Zocor] 20 mg PO HS 08/03/17 [History] Travoprost [Travatan Z 0.004%] 1 drop BOTH EYES HS 08/03/17 [History] amLODIPine [Norvasc] 5 mg PO HS 08/03/17 [History] Melatonin 5 mg PO HS 06/05/18 [History] Multivitamins, Thera [Multivitamin (formulary)] 1 tab PO DAILY 06/05/18 [History ] Biotin 1,000 Mcg 1,000 mcg PO DAILY 06/15/18 [History] HYDROcodone/APAP 5-325MG [[place] 5-325] 1 - 2 each PO Q4-6H PRN #50 tab 06/15/18 [Rx] Sennosides-Docusate Sodium [Senokot-S] 1 tab PO BID #60 tablet 06/15/18 [Rx] Warfarin [Coumadin] 2.5 mg PO DAILY #1 tab 06/15/18 [Rx] Follow up Appointment(s)/Referral(s): Elisa Taylor PAC [[employer]] - 06/30/18 9:50 am Marianne Celis MD [Primary Care Provider] - 1 Week (Office closed. Patient to make appointment. ) Ambulatory/Diagnostic Orders: Prothrombin Time INR [LAB.AMB] Location: None Selected Patient Instructions/Handouts: *Surgery [facility] - On-Q Pain Pump Discharge Instructions, Knee Replacement (DC) Activity/Diet/Wound Care/Special Instructions: May bear wt as tolerated with walker. May shower if no drainage from incision. Discharge Disposition: HOME WITH HOME HEALTH SERVICES
[2018-06-17 08:51] LABS: INR 2.6 (<1.2); Prothrombin Time 23.5 sec (9.0-12.0)
--- NOTE | 2018-06-17 10:31 | P.PN ---
Subjective Progress Note Date: 06/17/18 Principal diagnosis: Knee pain Patient is a 73-year-old female with a history of hypertension, dyslipidemia, and osteoarthritis who underwent an elective left total knee arthroplasty. She tolerated procedure well. Patient seen and examined at bedside. Her nausea is resolved. Pain is controlled. She's been up and ambulating in the hallways. She denies any chest pain, shortness of breath, or dysuria. She states that her blood pressures typically run 110-120 at home. She does have Often. We Discussed That There Been in the 140s to 150s Here. She Will Continue to Check Her Blood Pressure at Home and Make a List of Them for Dr. Celis. She Will Be Doing Outpatient Physical Therapy. Orthopedic Office on Discharge. She Is Going Home with Her Son and [id number] and Will Be Well Cared for. Objective - Vital Signs Vital signs: Vital Signs Temp 98.3 F 06/17/18 06:55 Pulse 94 06/17/18 06:55 Resp 18 06/17/18 06:55 BP 144/77 06/17/18 06:55 Pulse Ox 95 06/17/18 06:55 Intake & Output 06/16/18 06/17/18 06/17/18 18:59 06:59 18:59 Intake Total 325 Balance 325 Intake: Oral 325 Other: # Voids 5 2 - Exam General: non toxic, no distress, appears at stated age Derm: Dressing in place over left knee, warm, dry Head: atraumatic, normocephalic, symmetric Eyes: EOMI, no lid lag, anicteric sclera Mouth: no lip lesion, mucus membranes moist Cardiovascular: S1S2 reg, no murmur, positive posterior tibial pulse bilateral, Lungs: CTA bilateral, no rhonchi, no rales , no accessory muscle use Abdominal: Positive bowel sounds, soft, nontender to palpation, no guarding, no appreciable organomegaly Ext: no gross muscle atrophy, trace edema left ankle, no contractures Neuro: CN II-XI grossly intact, no focal neuro deficits Psych: Alert, oriented, appropriate affect - Labs CBC & Chem 7: 06/16/18 06:39 Labs: Abnormal Lab Results - Last 24 Hours (Table) 06/17/18 Range/Units 06:49 PT 23.5 H (9.0-12.0) sec INR 2.6 H (<1.2) Assessment and Plan Assessment: Hypertension -Resume all prior medications -Check blood pressure once daily and make a list for Dr. Celis -Patient medically stable for discharge home Acute left anemia, anticipated outcome of surgery -Stable. No indication for iron supplementation at this point in time. Anticipate to correct. Hypothyroidism -Continue Synthroid Dyslipidemia -Continue statin Osteoarthritis status post total knee arthroplasty -Management per primary team. Patient is on Coumadin for DVT prophylaxis.
[2018-06-17] MEDS: MULTIVITAMINS, THERA 1 EACH TAB PO SCH (11:34)
[2018-06-17] MEDS ORDERED: WARFARIN 2.5 MG TAB PO ONE (18:00)
== END 2018-06-17 13:04 | disposition home health service (06) | DRG 470 ==
LOC: 2ORMAIN 05:39 → 4SSUR 10:01
PROVIDERS: ADMIT Orthopaedic Surgery; ATTEND Orthopaedic Surgery
PROC: 0SRD0J9 Replacement of Left Knee Joint with Synthetic Substitute, Cemented, Open Approach (ICD-10-PCS; principal; 2018-06-15 08:00)
DX: M17.12 Unilateral primary osteoarthritis, left knee (principal); I10 Essential (primary) hypertension; M21.162 Varus deformity, not elsewhere classified, left knee; E03.9 Hypothyroidism, unspecified; H40.9 Unspecified glaucoma; E78.2 Mixed hyperlipidemia; M54.16 Radiculopathy, lumbar region; F39 Unspecified mood [affective] disorder; R11.0 Nausea; D64.9 Anemia, unspecified; Q82.5 Congenital non-neoplastic nevus; Z85.42 Personal history of malignant neoplasm of other parts of uterus; Z82.49 Family history of ischemic heart disease and other diseases of the circulatory system; Z79.890 Hormone replacement therapy; Z79.899 Other long term (current) drug therapy; Z79.82 Long term (current) use of aspirin; Z79.01 Long term (current) use of anticoagulants; Z90.710 Acquired absence of both cervix and uterus; Z90.49 Acquired absence of other specified parts of digestive tract
CPT/HCPCS: 85025; 85610; 88305; 88311

== ENCOUNTER 2019-03-14 13:21 | Emergency (ER) | payer MEDICARE ==
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
--- NOTE | 2019-03-14 13:50 | XR ---
EXAMINATION TYPE: XR chest 2V DATE OF EXAM: 03/14/2019 HISTORY: Pain. REFERENCE: Previous study dated 11/12/2017. FINDINGS: The lungs are clear. Pleural spaces are clear. The heart is not enlarged. There is hypertro phic spondylosis within the spine. IMPRESSION: NO ACTIVE INTRATHORACIC DISEASE.
[2019-03-14 15:10] VITALS: BP 150/87; PULSE 67; RESP 18; TEMP 98
== END 2019-03-14 15:10 | disposition home or self-care (01) ==
LOC: EC 13:21
DX: Z77.120 Contact with and (suspected) exposure to mold (toxic) (principal); R09.89 Other specified symptoms and signs involving the circulatory and respiratory systems; I10 Essential (primary) hypertension; E78.5 Hyperlipidemia, unspecified; Z79.82 Long term (current) use of aspirin; Z79.890 Hormone replacement therapy; Z79.899 Other long term (current) drug therapy; Z85.42 Personal history of malignant neoplasm of other parts of uterus
CPT/HCPCS: 71046; 99284

== ENCOUNTER 2019-04-26 16:54 | Emergency (ER) | payer MEDICARE ==
[2019-04-26 17:22] VITALS: TEMP 98.2
[2019-04-26] MEDS ORDERED: SODIUM CHLORIDE 0.9% 500 ML 500 ML IV STA (18:36)
[2019-04-26] MEDS ORDERED: SODIUM CHLORIDE 0.9% 1,000 ML IV STA (18:36)
[2019-04-26] MEDS ORDERED: ONDANSETRON 4 MG/2 ML VIAL IVP STA (18:37)
[2019-04-26] MEDS ORDERED: LORazepam 2 MG/ML INJ IV STA (18:37)
--- NOTE | 2019-04-26 18:46 | ED ---
Anxiety HPI - General Chief Complaint: Anxiety Stated Complaint: anxiety Time Seen by Provider: 04/26/19 18:05 Source: patient, RN notes reviewed, old records reviewed Mode of arrival: ambulatory - History of Present Illness Initial Comments: This is a 73-year-old female the ER for evaluation. Today she presents for evaluation regards to anxiety versus chest pain. Patient has had episodic chest. Symptoms for a few days, she does admit history of anxiety generalized anxiety. No history of heart disease. denies any significant shortness of breath or sweating. Patient states that she's had some increased stress lately she's been dealing with suicide of her other recent passing of 2 of her cats. Patient also missed her house fluttering as of late and being told that she has mold going throughout the house which is concerned that may be causing her problems. Patient currently not having chest pain shows admit to anxiousness, difficulty sleeping. Not homicidal or suicidal no drug or alcohol abuse MD Complaint: anxiety -: days(s) Symptoms: dyspnea Place: home Previous History of Same: No Severity: mild Quality: constant Provoking factors: none known Improves With: nothing Worsens With: nothing Associated symptoms: chest pain, palpitations - Related Data Home Medications: Home Medications Medication Instructions Recorded Confirmed ALPRAZolam [Xanax] 0.5 mg PO TID PRN 08/03/17 04/26/19 Brimonidine Tartrate/Timolol 1 drop RIGHT EYE BID 08/03/17 04/26/19 [Combigan 0.2%-0.5% Eye Drops] Cholecalciferol [Vitamin D3 (25 1,000 unit PO DAILY 08/03/17 04/26/19 Mcg = 1000 Iu)] Levothyroxine Sodium [Synthroid] 88 mcg PO DAILY 08/03/17 04/26/19 Lisinopril-Hctz 20-12.5 mg 1 tab PO DAILY 08/03/17 04/26/19 [Zestoretic 20-12.5] Simvastatin [Zocor] 20 mg PO HS 08/03/17 04/26/19 Travoprost [Travatan Z 0.004%] 1 drop BOTH EYES HS 08/03/17 04/26/19 amLODIPine [Norvasc] 5 mg PO HS 08/03/17 04/26/19 Melatonin 5 mg PO HS 06/05/18 04/26/19 Multivitamins, Thera [Multivitamin 1 tab PO DAILY 06/05/18 04/26/19 (formulary)] Biotin 1,000 Mcg 1,000 mcg PO DAILY 06/15/18 04/26/19 Allergies/Adverse Reactions: Allergies Allergy/AdvReac Type Severity Reaction Status Date / Time No Known Allergies Allergy Verified 04/26/19 19:08 Review of Systems ROS Statement: Those systems with pertinent positive or pertinent negative responses have been documented in the HPI. ROS Other: All systems not noted in ROS Statement are negative. Past Medical History Past Medical History: Cancer, Hyperlipidemia, Hypertension Additional Past Medical History / Comment(s): glaucoma, History of Any Multi-Drug Resistant Organisms: None Reported Past Surgical History: Cholecystectomy, Hysterectomy Additional Past Surgical History / Comment(s): uterinbe cancer, cataract surgery Past Anesthesia/Blood Transfusion Reactions: Postoperative Nausea & Vomiting (PONV) Past Psychological History: Anxiety Smoking Status: Never smoker - Past Family History Mother Family Medical History: No Reported History General Exam Limitations: no limitations General appearance: alert, in no apparent distress Head exam: Present: atraumatic, normocephalic, normal inspection Eye exam: Present: normal appearance, EOMI. Absent: scleral icterus, conjunctival injection, periorbital swelling ENT exam: Present: normal exam, mucous membranes moist Neck exam: Present: normal inspection. Absent: tenderness, meningismus, lymphadenopathy Respiratory exam: Present: normal lung sounds bilaterally. Absent: respiratory distress, wheezes, rales, rhonchi, stridor Cardiovascular Exam: Present: regular rate, normal rhythm, normal heart sounds. Absent: systolic murmur, diastolic murmur, rubs, gallop, clicks GI/Abdominal exam: Present: soft, normal bowel sounds. Absent: distended, tenderness, guarding, rebound, rigid Extremities exam: Present: normal inspection, full ROM, normal capillary refill. Absent: tenderness, pedal edema, joint swelling, calf tenderness Back exam: Present: normal inspection Neurological exam: Present: alert, oriented X3, CN II-XII intact Psychiatric exam: Present: normal affect, normal mood Skin exam: Present: warm, dry, intact, normal color. Absent: rash Course Vital Signs 04/26/19 04/26/19 04/26/19 17:18 19:11 19:30 Temperature 98.2 F Pulse Rate 74 63 Respiratory 18 14 Rate Blood Pressure 161/84 162/74 O2 Sat by Pulse 97 98 97 Oximetry 04/26/19 04/26/19 04/26/19 19:40 19:50 20:00 Temperature Pulse Rate 67 70 61 Respiratory 16 25 H 16 Rate Blood Pressure 153/70 150/80 150/80 O2 Sat by Pulse 97 97 98 Oximetry 04/26/19 04/26/19 20:10 20:20 Temperature Pulse Rate 60 60 Respiratory 20 19 Rate Blood Pressure 126/63 139/67 O2 Sat by Pulse 98 98 Oximetry - Reevaluation(s) Reevaluation #1: 04/26/19 19:00 Medical records Reevaluation #2: 04/26/19 20:39 A she is symptoms significant improvement, denies any complaints of pain, patient feels baseline Medical Decision Making - Medical Decision Making 73 female the ER for evaluation likely generalized anxiety anxiety disorder, patient given Ativan, feeling better here in the ER labwork is normal EKG is negative and patient can be discharged home - Lab Data Result diagrams: 04/26/19 19:07 04/26/19 19:07 Lab Results 04/26/19 04/26/19 04/26/19 Range/Units 19:07 19:07 19:07 WBC 7.8 (3.8-10.6) k/uL RBC 4.53 (3.80-5.40) m/uL Hgb 13.3 (11.4-16.0) gm/dL Hct 39.2 (34.0-46.0) % MCV 86.5 (80.0-100.0) fL MCH 29.3 (25.0-35.0) pg MCHC 33.8 (31.0-37.0) g/dL RDW 12.4 (11.5-15.5) % Plt Count 290 (150-450) k/uL Neutrophils % 61 % Lymphocytes % 26 % Monocytes % 7 % Eosinophils % 3 % Basophils % 2 % Neutrophils # 4.7 (1.3-7.7) k/uL Lymphocytes # 2.0 (1.0-4.8) k/uL Monocytes # 0.5 (0-1.0) k/uL Eosinophils # 0.2 (0-0.7) k/uL Basophils # 0.2 (0-0.2) k/uL Sodium 134 L (137-145) mmol/L Potassium 3.6 (3.5-5.1) mmol/L Chloride 94 L (98-107) mmol/L Carbon Dioxide 27 (22-30) mmol/L Anion Gap 13 mmol/L BUN 13 (7-17) mg/dL Creatinine 0.74 (0.52-1.04) mg/dL Est GFR (CKD-EPI)AfAm >90 (>60 ml/min/1.73 sqM) Est GFR (CKD-EPI)NonAf 80 (>60 ml/min/1.73 sqM) Glucose 93 (74-99) mg/dL Calcium 10.3 H (8.4-10.2) mg/dL Phosphorus 3.6 (2.5-4.5) mg/dL Magnesium 1.4 L (1.6-2.3) mg/dL Total Bilirubin 0.6 (0.2-1.3) mg/dL AST 27 (14-36) U/L ALT 24 (9-52) U/L Alkaline Phosphatase 67 (38-126) U/L Creatine Kinase 57 (30-135) U/L CK-MB (CK-2) 0.8 (0.0-2.4) ng/mL Troponin I <0.012 (0.000-0.034) ng/mL Total Protein 8.0 (6.3-8.2) g/dL Albumin 5.0 (3.5-5.0) g/dL TSH 2.340 (0.465-4.680) mIU/L Urine Color Urine Appearance (Clear) Urine pH (5.0-8.0) Ur Specific [place] (1.001-1.035) Urine Protein (Negative) Urine Glucose (UA) (Negative) Urine Ketones (Negative) Urine Blood (Negative) Urine Nitrite (Negative) Urine Bilirubin (Negative) Urine Urobilinogen (<2.0) mg/dL Ur Leukocyte Esterase (Negative) Urine RBC (0-5) /hpf Urine WBC (0-5) /hpf Urine Bacteria (None) /hpf Urine Mucus (None) /hpf 04/26/19 Range/Units 19:07 WBC (3.8-10.6) k/uL RBC (3.80-5.40) m/uL Hgb (11.4-16.0) gm/dL Hct (34.0-46.0) % MCV (80.0-100.0) fL MCH (25.0-35.0) pg MCHC (31.0-37.0) g/dL RDW (11.5-15.5) % Plt Count (150-450) k/uL Neutrophils % % Lymphocytes % % Monocytes % % Eosinophils % % Basophils % % Neutrophils # (1.3-7.7) k/uL Lymphocytes # (1.0-4.8) k/uL Monocytes # (0-1.0) k/uL Eosinophils # (0-0.7) k/uL Basophils # (0-0.2) k/uL Sodium (137-145) mmol/L Potassium (3.5-5.1) mmol/L Chloride (98-107) mmol/L Carbon Dioxide (22-30) mmol/L Anion Gap mmol/L BUN (7-17) mg/dL Creatinine (0.52-1.04) mg/dL Est GFR (CKD-EPI)AfAm (>60 ml/min/1.73 sqM) Est GFR (CKD-EPI)NonAf (>60 ml/min/1.73 sqM) Glucose (74-99) mg/dL Calcium (8.4-10.2) mg/dL Phosphorus (2.5-4.5) mg/dL Magnesium (1.6-2.3) mg/dL Total Bilirubin (0.2-1.3) mg/dL AST (14-36) U/L ALT (9-52) U/L Alkaline Phosphatase (38-126) U/L Creatine Kinase (30-135) U/L CK-MB (CK-2) (0.0-2.4) ng/mL Troponin I (0.000-0.034) ng/mL Total Protein (6.3-8.2) g/dL Albumin (3.5-5.0) g/dL TSH (0.465-4.680) mIU/L Urine Color Colorless Urine Appearance Clear (Clear) Urine pH 6.5 (5.0-8.0) Ur Specific [place] 1.003 (1.001-1.035) Urine Protein Negative (Negative) Urine Glucose (UA) Negative (Negative) Urine Ketones Trace H (Negative) Urine Blood Negative (Negative) Urine Nitrite Negative (Negative) Urine Bilirubin Negative (Negative) Urine Urobilinogen <2.0 (<2.0) mg/dL Ur Leukocyte Esterase Small H (Negative) Urine RBC <1 (0-5) /hpf Urine WBC 1 (0-5) /hpf Urine Bacteria Rare H (None) /hpf Urine Mucus Rare H (None) /hpf - EKG Data -: EKG Interpreted by Me (EKG shows sinus rhythm rate of 64, WI 142, QRS 02, QTc 420) Disposition Clinical Impression: Generalized anxiety disorder Disposition: HOME SELF-CARE Instructions (If sedation given, give patient instructions): Generalized Anxiety Disorder (ED) Is patient prescribed a controlled substance at d/c from ED?: Yes When asked, does pt state using other controlled substances?: Yes If prescribed controlled substance>3 days was MAPS reviewed?: Prescribed <3 Days Referrals: Marianne Celis MD [Primary Care Provider] - 1-2 days
[2019-04-26 19:26] LABS: Basophils # (A) 0.2 k/uL (0-0.2); Basophils % (A) 2 %; Eosinophils # (A) 0.2 k/uL (0-0.7); Eosinophils % (A) 3 %; HCT 39.2 % (34.0-46.0); HGB 13.3 gm/dL (11.4-16.0); Lymphocytes % (A) 26 %; MCH 29.3 pg (25.0-35.0); MCHC 33.8 g/dL (31.0-37.0); MCV 86.5 fL (80.0-100.0); Mean Platelet Volume 6.7; Monocytes # (A) 0.5 k/uL (0-1.0); Monocytes % (A) 7 %; Neutrophils # (A) 4.7 k/uL (1.3-7.7); Neutrophils % (A) 61 %; Platelet Count 290 k/uL (150-450); RBC 4.53 m/uL (3.80-5.40); RDW 12.4 % (11.5-15.5); WBC 7.8 k/uL (3.8-10.6)
[2019-04-26 19:28] LABS: Appearance,Urine Clear (Clear); Bacteria,Urine Rare /hpf; Bilirubin,Urine Negative (Negative); Blood,Urine Negative (Negative); Color,Urine Colorless; Glucose,Urine (UA) Negative (Negative); Ketones,Urine Trace (Negative); Leukocyte Esterase,Urine Small (Negative); Mucus,Urine Rare /hpf; Nitrite,Urine Negative (Negative); PH, Urine 6.5 (5.0-8.0); Protein,Urine Negative (Negative); RBC,Urine <1 /hpf (0-5); Specific Gravity,Urine 1.003 (1.001-1.035); Urobilinogen,Urine <2.0 mg/dL (<2.0)
[2019-04-26 19:31] LABS: ALT 24 U/L (9-52); AST 27 U/L (14-36); African American GFR (CKD) >90 (>60 ml/min/1.73 sqM); Alkaline Phosphatase 67 U/L (38-126); Anion Gap 13 mmol/L; Blood Urea Nitrogen 13 mg/dL (7-17); Calcium 10.3 mg/dL (8.4-10.2); Carbon Dioxide 27 mmol/L (22-30); Chloride 94 mmol/L (98-107); Creatine Kinase 57 U/L (30-135); Glucose 93 mg/dL (74-99); Magnesium 1.4 mg/dL (1.6-2.3); Phosphorus 3.6 mg/dL (2.5-4.5); Potassium 3.6 mmol/L (3.5-5.1); Sodium 134 mmol/L (137-145); Total Bilirubin 0.6 mg/dL (0.2-1.3)
[2019-04-26 19:55] LABS: Creatine Kinase MB 0.8 ng/mL (0.0-2.4); Troponin I <0.012 ng/mL (0.000-0.034)
[2019-04-26 21:07] VITALS: BP 146/73; PULSE 62; RESP 20
== END 2019-04-26 21:08 | disposition home or self-care (01) ==
LOC: EC 16:54
DX: F41.1 Generalized anxiety disorder (principal); I10 Essential (primary) hypertension; E78.5 Hyperlipidemia, unspecified; H40.9 Unspecified glaucoma; Z79.899 Other long term (current) drug therapy; Z98.890 Other specified postprocedural states
CPT/HCPCS: 36415; 93005; 80053; 82550; 82553; 83735; 84100; 84443; 84484; 85025; 81001; 99284; 96374; 96375; 96361 ×2; J2060; J2405

== ENCOUNTER 2019-04-30 15:34 | Inpatient (IN) | payer MEDICARE ==
[2019-04-30] MEDS ORDERED: METOCLOPRAMIDE 5 MG/ML 2 ML VIAL IVP STA (16:43)
[2019-04-30] MEDS ORDERED: SODIUM CHLORIDE 0.9% 1,000 ML IV STA (16:43)
[2019-04-30] MEDS ORDERED: MAG HYDROX/AL HYDROX/SIMETH 30 ML, HYOSCYAMINE ELIXIR 10 ML, CIMETIDINE HCL 300 MG, LID... PO STA ×4 (16:43)
--- NOTE | 2019-04-30 16:46 | ED ---
General Adult HPI - General Chief complaint: Dizziness Stated complaint: Nausea, dizzy Time Seen by Provider: 04/30/19 16:13 Source: patient Mode of arrival: wheelchair Limitations: no limitations - History of Present Illness Initial comments: Dictation was produced using [employer] dictation software. please excuse any grammatical, word or spelling errors. Chief Complaint: 73-year-old female with past medical history of dyslipidemia, hypertension presents with persistent nausea. History of Present Illness: It is a 73-year-old female patient was initially seen 4 days ago and diagnosed with anxiety. For approximately the last 7 days patient has been feeling lightheaded and nauseous. She's been dry heaving however has not had any episodes of emesis. Patient also has been complaining of some mild epigastric abdominal pain. After been seen in emergency department she was evaluated by her primary care physician. She was started on proton pump inhibitor and antinausea medications. States that those medications make her symptoms worse. Patient states that there arent any exacerbating or mitigating factors. She denies a sensation of the room spinning. Patient states that she's been so nauseated that she has to lie in bed and is unable to perform her activities of daily living. Sensitivity with family member who is also equally concerned. The ROS documented in this emergency department record has been reviewed and confirmed by me. Those systems with pertinent positive or negative responses have been documented in the HPI. All other systems are other negative and/or noncontributory. PHYSICAL EXAM: General Impression: Alert and oriented x3, not in acute distress HEENT: Normocephalic atraumatic, extra-ocular movements intact, pupils equal and reactive to light bilaterally, mucous membranes moist, no nystagmus, dizziness is not elicited with position changes, no carotid bruit, chronic purplish rash to the face that. Cardiovascular: Heart regular rate and rhythm, S1&S2 audible, no murmurs, rubs or gallops Chest: Lungs clear to auscultation bilaterally, no rhonchi, no wheeze, no rales Abdomen: Bowel sounds present, abdomen soft, mild tenderness with palpation to the epigastric area, non-distended, no organomegaly, negative Dueñas sign Musculoskeletal: Pulses present and equal in all extremities, no peripheral edema Motor: no focal deficits noted Neurological: CN II-XII grossly intact, no focal motor or sensory deficits noted Skin: Intact with no visualized rashes Psych: Normal affect and mood ED course: 73-year-old female presents with persistent nausea and dizziness ongoing for the last 1 week. As upon arrival are within acceptable limits. Patient also has secondary complaint of epigastric tenderness. Patient states she had EGD performed by Dr. Mckenna in the past with findings of esophageal spasm versus stricture. This EGD was performed approximately 6 years ago. 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 She does also report history of peptic ulcer disease. She is undergone a trial of PPI and antinausea medication with persistent symptoms. Laboratory evaluation obtained. CBC unremarkable. Coag panel unremarkable. Metabolic panel shows significant hyponatremia with a level I.3, magnesium 1.2. Given patient's recent history of poor intake is likely due to dehydration and poor intake. Patient has pending serum osmolarity and urine osmolarity. There is some concern that patient's symptoms might reflect SIADH however slightly secondary to poor intake. Patient to be admitted. Discussed patient case with Dr. Agudelo who will except patient's care.patient given intravenous fluids. An magnesium. EKG interpretation: Ventricular rate 59, sinus. Cardiac,. 162, care is 106, QTC 43. No ME prolongation, no QTC prolongation, no ST or T-wave changes noted. EKG compared to 04/26/2019 showing no changes. Overall, this EKG is unremark able - Related Data Home Medications Medication Instructions Recorded Confirmed ALPRAZolam [Xanax] 0.5 mg PO TID PRN 08/03/17 04/30/19 Brimonidine Tartrate/Timolol 1 drop RIGHT EYE BID 08/03/17 04/30/19 [Combigan 0.2%-0.5% Eye Drops] Cholecalciferol [Vitamin D3 (25 1,000 unit PO DAILY 08/03/17 04/30/19 Mcg = 1000 Iu)] Levothyroxine Sodium [Synthroid] 88 mcg PO DAILY 08/03/17 04/30/19 Lisinopril-Hctz 20-12.5 mg 1 tab PO DAILY 08/03/17 04/30/19 [Zestoretic 20-12.5] Simvastatin [Zocor] 20 mg PO HS 08/03/17 04/30/19 Travoprost [Travatan Z 0.004%] 1 drop BOTH EYES HS 08/03/17 04/30/19 amLODIPine [Norvasc] 5 mg PO HS 08/03/17 04/30/19 Melatonin 5 mg PO HS 06/05/18 04/30/19 Multivitamins, Thera [Multivitamin 1 tab PO DAILY 06/05/18 04/30/19 (formulary)] Biotin 1,000 Mcg 1,000 mcg PO DAILY 06/15/18 04/30/19 Omeprazole 40 mg PO DAILY 04/30/19 04/30/19 Previous Rx's Medication Instructions Recorded LORazepam [Ativan] 1 mg PO TID 3 Days #9 tab 04/26/19 Ondansetron [Zofran] 4 mg PO Q8HR PRN #30 tab 04/26/19 Allergies Allergy/AdvReac Type Severity Reaction Status Date / Time No Known Allergies Allergy Verified 04/30/19 16:26 Review of Systems ROS Statement: Those systems with pertinent positive or pertinent negative responses have been documented in the HPI. ROS Other: All systems not noted in ROS Statement are negative. Past Medical History Past Medical History: Cancer, Hyperlipidemia, Hypertension Additional Past Medical History / Comment(s): glaucoma History of Any Multi-Drug Resistant Organisms: None Reported Past Surgical History: Cholecystectomy, Hysterectomy Additional Past Surgical History / Comment(s): uterine cancer, cataract surgery Past Anesthesia/Blood Transfusion Reactions: Postoperative Nausea & Vomiting (PONV) Past Psychological History: Anxiety Smoking Status: Never smoker Past Alcohol Use History: None Reported Past Drug Use History: None Reported - Past Family History Mother Family Medical History: No Reported History General Exam Limitations: no limitations Course Vital Signs 04/30/19 04/30/19 15:41 17:03 Temperature 98.3 F Pulse Rate 62 Pulse Rate [ 75 Standing] Pulse Rate [ 60 Supine] Respiratory 18 Rate Blood Pressure 165/79 Blood Pressure 161/89 [Standing] Blood Pressure 167/80 [Supine] O2 Sat by Pulse 97 Oximetry Medical Decision Making - Lab Data Result diagrams: 04/30/19 16:45 04/30/19 16:45 Lab Results 04/30/19 04/30/19 04/30/19 Range/Units 16:45 16:45 16:45 WBC 5.8 (3.8-10.6) k/uL RBC 4.05 (3.80-5.40) m/uL Hgb 12.0 (11.4-16.0) gm/dL Hct 34.1 (34.0-46.0) % MCV 84.1 (80.0-100.0) fL MCH 29.6 (25.0-35.0) pg MCHC 35.1 (31.0-37.0) g/dL RDW 11.9 (11.5-15.5) % Plt Count 271 (150-450) k/uL Neutrophils % 63 % Lymphocytes % 24 % Monocytes % 10 % Eosinophils % 2 % Basophils % 1 % Neutrophils # 3.6 (1.3-7.7) k/uL Lymphocytes # 1.4 (1.0-4.8) k/uL Monocytes # 0.6 (0-1.0) k/uL Eosinophils # 0.1 (0-0.7) k/uL Basophils # 0.1 (0-0.2) k/uL PT (9.0-12.0) sec INR (<1.2) APTT (22.0-30.0) sec Sodium 123 L (137-145) mmol/L Potassium 3.8 (3.5-5.1) mmol/L Chloride 86 L (98-107) mmol/L Carbon Dioxide 27 (22-30) mmol/L Anion Gap 10 mmol/L BUN 10 (7-17) mg/dL Creatinine 0.67 (0.52-1.04) mg/dL Est GFR (CKD-EPI)AfAm >90 (>60 ml/min/1.73 sqM) Est GFR (CKD-EPI)NonAf 86 (>60 ml/min/1.73 sqM) Glucose 115 H (74-99) mg/dL Plasma Lactic Acid Daryl 0.6 L (0.7-2.0) mmol/L Calcium 9.4 (8.4-10.2) mg/dL Magnesium 1.2 L (1.6-2.3) mg/dL Total Bilirubin 0.7 (0.2-1.3) mg/dL Conjugated Bilirubin 0.0 (0.0-0.3) mg/dL Unconjugated Bilirubin 0.7 (0.0-1.1) mg/dL Delta Bilirubin 0.0 (0.0-0.2) mg/dL AST 23 (14-36) U/L ALT 19 (9-52) U/L Alkaline Phosphatase 58 (38-126) U/L Creatine Kinase 51 (30-135) U/L Troponin I (0.000-0.034) ng/mL Total Protein 6.9 (6.3-8.2) g/dL Albumin 4.2 (3.5-5.0) g/dL Lipase 35 (23-300) U/L 04/30/19 04/30/19 Range/Units 16:45 16:45 WBC (3.8-10.6) k/uL RBC (3.80-5.40) m/uL Hgb (11.4-16.0) gm/dL Hct (34.0-46.0) % MCV (80.0-100.0) fL MCH (25.0-35.0) pg MCHC (31.0-37.0) g/dL RDW (11.5-15.5) % Plt Count (150-450) k/uL Neutrophils % % Lymphocytes % % Monocytes % % Eosinophils % % Basophils % % Neutrophils # (1.3-7.7) k/uL Lymphocytes # (1.0-4.8) k/uL Monocytes # (0-1.0) k/uL Eosinophils # (0-0.7) k/uL Basophils # (0-0.2) k/uL PT 10.0 (9.0-12.0) sec INR 0.9 (<1.2) APTT 25.3 (22.0-30.0) sec Sodium (137-145) mmol/L Potassium (3.5-5.1) mmol/L Chloride (98-107) mmol/L Carbon Dioxide (22-30) mmol/L Anion Gap mmol/L BUN (7-17) mg/dL Creatinine (0.52-1.04) mg/dL Est GFR (CKD-EPI)AfAm (>60 ml/min/1.73 sqM) Est GFR (CKD-EPI)NonAf (>60 ml/min/1.73 sqM) Glucose (74-99) mg/dL Plasma Lactic Acid Daryl (0.7-2.0) mmol/L Calcium (8.4-10.2) mg/dL Magnesium (1.6-2.3) mg/dL Total Bilirubin (0.2-1.3) mg/dL Conjugated Bilirubin (0.0-0.3) mg/dL Unconjugated Bilirubin (0.0-1.1) mg/dL Delta Bilirubin (0.0-0.2) mg/dL AST (14-36) U/L ALT (9-52) U/L Alkaline Phosphatase (38-126) U/L Creatine Kinase (30-135) U/L Troponin I <0.012 (0.000-0.034) ng/mL Total Protein (6.3-8.2) g/dL Albumin (3.5-5.0) g/dL Lipase (23-300) U/L Disposition Clinical Impression: Hyponatremia Disposition: ADMITTED IP TO THIS HOSP Condition: Fair Referrals: Marianne Celis MD [Primary Care Provider] - 1-2 days Decision Time: 17:53
[2019-04-30 17:10] LABS: ALT 19 U/L (9-52); AST 23 U/L (14-36); African American GFR (CKD) >90 (>60 ml/min/1.73 sqM); Albumin 4.2 g/dL (3.5-5.0); Alkaline Phosphatase 58 U/L (38-126); Anion Gap 10 mmol/L; Bilirubin,Unconjugated 0.7 mg/dL (0.0-1.1); Blood Urea Nitrogen 10 mg/dL (7-17); Calcium 9.4 mg/dL (8.4-10.2); Carbon Dioxide 27 mmol/L (22-30); Chloride 86 mmol/L (98-107); Creatine Kinase 51 U/L (30-135); Glucose 115 mg/dL (74-99); Magnesium 1.2 mg/dL (1.6-2.3); Potassium 3.8 mmol/L (3.5-5.1); Sodium 123 mmol/L (137-145); Total Bilirubin 0.7 mg/dL (0.2-1.3); Total Protein 6.9 g/dL (6.3-8.2)
[2019-04-30 17:11] LABS: INR 0.9 (<1.2); Partial Thromboplastin Time 25.3 sec (22.0-30.0)
--- NOTE | 2019-04-30 17:23 | XR ---
EXAMINATION TYPE: XR abdomen acute w cxr DATE OF EXAM: 04/30/2019 COMPARISON: NONE HISTORY: Nausea. Dizziness TECHNIQUE: 3 views supine and upright and chest x-ray FINDINGS: Heart and mediastinum are within normal limits. Lungs are clear. Diaphragm is normal. Bowel gas pattern is normal. There is no sign of intestinal obstruction or pneumoperitoneum. Fecal pa ttern is normal. There are clips from cholecystectomy. There is no evidence of a mass. There are no p athologic calcifications over the kidneys. There are surgical clips in the pelvis. IMPRESSION: No active cardiopulmonary disease. Nonacute abdomen.
[2019-04-30 17:24] LABS: Basophils # (A) 0.1 k/uL (0-0.2); Basophils % (A) 1 %; Eosinophils # (A) 0.1 k/uL (0-0.7); Eosinophils % (A) 2 %; HCT 34.1 % (34.0-46.0); Lymphocytes # (A) 1.4 k/uL (1.0-4.8); Lymphocytes % (A) 24 %; MCH 29.6 pg (25.0-35.0); MCHC 35.1 g/dL (31.0-37.0); MCV 84.1 fL (80.0-100.0); Mean Platelet Volume 6.4; Monocytes # (A) 0.6 k/uL (0-1.0); Monocytes % (A) 10 %; Neutrophils # (A) 3.6 k/uL (1.3-7.7); Neutrophils % (A) 63 %; Platelet Count 271 k/uL (150-450); RBC 4.05 m/uL (3.80-5.40); RDW 11.9 % (11.5-15.5); WBC 5.8 k/uL (3.8-10.6)
[2019-04-30] MEDS ORDERED: NALOXONE 0.4 MG/ML 1 ML VIAL IV PRN ×2 (17:53→19:18)
[2019-04-30] MEDS ORDERED: ONDANSETRON 4 MG/2 ML VIAL IVP PRN (17:53)
[2019-04-30] MEDS: SODIUM CHLORIDE 0.9% 1,000 ML IV SCH (18:25)
[2019-04-30] MEDS: MAGNESIUM SULFATE-D5W PMX 1 GM in DEXTROSE/WATER 1 100ML.BAG IVPB SCH ×2 (18:25→19:06)
[2019-04-30 18:34] LABS: Appearance,Urine Clear (Clear); Bilirubin,Urine Negative (Negative); Blood,Urine Negative (Negative); Color,Urine Light Yellow; Glucose,Urine (UA) Negative (Negative); Ketones,Urine Negative (Negative); Leukocyte Esterase,Urine Small (Negative); Nitrite,Urine Negative (Negative); Protein,Urine Negative (Negative); RBC,Urine 1 /hpf (0-5); Specific Gravity,Urine 1.011 (1.001-1.035); Urobilinogen,Urine <2.0 mg/dL (<2.0)
--- NOTE | 2019-04-30 19:30 | P.HPIM ---
History of Present Illness H&P Date: 04/30/19 Chief Complaint: Anxiety a 73-year-old female who was seen in the ER 4 days ago because of anxiety. For approximately the last 2-3 weeks she has been having symptoms of weakness, increasing anxiety, lightheadedness and nausea/dry heaving. No vomiting. Patient also has been complaining of some mild epigastric abdominal pain. No acid reflux. No fevers or chills. No chest pain or shortness of breath. She has been constipated lately, no diarrhea. No urinary symptoms. Her primary care physician started on Zofran and omeprazole. She states that those medication made her symptoms worse. She also stated that she chronically takes Xanax which was switched recently to Ativan by her PCP. In the emergency department her laboratory findings were significant for low sodium at 123, of note her sodium level which was evaluated in the ER 4 days ago was 134. Review of Systems Complete review of system performed, negative except HPI, pertinent positives per HPI Past Medical History Past Medical History: Cancer, Hyperlipidemia, Hypertension Additional Past Medical History / Comment(s): glaucoma History of Any Multi-Drug Resistant Organisms: None Reported Past Surgical History: Cholecystectomy, Hysterectomy Additional Past Surgical History / Comment(s): uterine cancer, cataract surgery Past Anesthesia/Blood Transfusion Reactions: Postoperative Nausea & Vomiting (PONV) Past Psychological History: Anxiety Smoking Status: Never smoker Past Alcohol Use History: None Reported Past Drug Use History: None Reported - Past Family History Mother Family Medical History: No Reported History Medications and Allergies Home Medications Medication Instructions Recorded Confirmed Type ALPRAZolam [Xanax] 0.5 mg PO TID PRN 08/03/17 04/30/19 History Brimonidine Tartrate/Timolol 1 drop RIGHT EYE BID 08/03/17 04/30/19 History [Combigan 0.2%-0.5% Eye Drops] Cholecalciferol [Vitamin D3 (25 1,000 unit PO DAILY 08/03/17 04/30/19 History Mcg = 1000 Iu)] Levothyroxine Sodium [Synthroid] 88 mcg PO DAILY 08/03/17 04/30/19 History Lisinopril-Hctz 20-12.5 mg 1 tab PO DAILY 08/03/17 04/30/19 History [Zestoretic 20-12.5] Simvastatin [Zocor] 20 mg PO HS 08/03/17 04/30/19 History Travoprost [Travatan Z 0.004%] 1 drop BOTH EYES HS 08/03/17 04/30/19 History amLODIPine [Norvasc] 5 mg PO HS 08/03/17 04/30/19 History Melatonin 5 mg PO HS 06/05/18 04/30/19 History Multivitamins, Thera [Multivitamin 1 tab PO DAILY 06/05/18 04/30/19 History (formulary)] Biotin 1,000 Mcg 1,000 mcg PO DAILY 06/15/18 04/30/19 History LORazepam [Ativan] 1 mg PO TID 3 Days #9 tab 04/26/19 04/30/19 Rx Ondansetron [Zofran] 4 mg PO Q8HR PRN #30 tab 04/26/19 04/30/19 Rx Omeprazole 40 mg PO DAILY 04/30/19 04/30/19 History Allergies Allergy/AdvReac Type Severity Reaction Status Date / Time No Known Allergies Allergy Verified 04/30/19 16:26 Physical Exam Vitals: Vital Signs Temp Pulse Pulse Pulse Resp BP BP 04/30/19 18:28 63 18 164/86 04/30/19 17:03 75 60 161/89 04/30/19 15:41 98.3 F 62 18 165/79 BP Pulse Ox 04/30/19 18:28 96 04/30/19 17:03 167/80 04/30/19 15:41 97 Intake and Output 04/30/19 04/30/19 04/30/19 06:59 14:59 22:59 Other: Weight 64.41 kg Constitutional: No acute distress, conversant, pleasant Eyes:Anicteric sclerae, moist conjunctiva, no lid-lag, PERRLA, ENMT: Oropharynx clear, no erythema, exudates Neck: Supple, FROM, no masses, or JVD, No carotid bruits, No thyromegaly Lungs: Clear to auscultation, Clear to percussion, Normal respiratory effort, no accessory muscle use Cardiovascular: Heart regular in rate and rhythm, No murmurs, gallops, or rubs, No peripheral edema Abdominal: Soft, Nontender, no guarding, rebound or rigidity, Normoactive bowel sounds, No hepatomegaly, No splenomegaly, No palpable mass Skin: Normal temperature, tone, texture, turgor, no induration, No subcutaneous nodules, No rash, lesions, No ulcers Extremities: No digital cyanosis, No clubbing, Pedal pulses intact and symmetrical, Radial pulses intact and symmetrical, No calf tenderness Psychiatric: Alert and oriented to person, place and time, appropriate affect, intact judgement Neuro: Muscles Strength 5/5 in all 4 extremities, Sensation to light touch grossly present throughout, Cranial nerves II-XII grossly intact, no focal sensory deficits Results CBC & Chem 7: 04/30/19 16:45 04/30/19 16:45 Labs: Abnormal Lab Results - Last 24 Hours (Table) 04/30/19 04/30/19 04/30/19 Range/Units 16:35 16:45 16:45 Sodium 123 L (137-145) mmol/L Chloride 86 L (98-107) mmol/L Glucose 115 H (74-99) mg/dL Osmolality (280-301) mosm/kg Plasma Lactic Acid Daryl 0.6 L (0.7-2.0) mmol/L Magnesium 1.2 L (1.6-2.3) mg/dL Ur Leukocyte Esterase Small H (Negative) 04/30/19 Range/Units 16:45 Sodium (137-145) mmol/L Chloride (98-107) mmol/L Glucose (74-99) mg/dL Osmolality 250 L (280-301) mosm/kg Plasma Lactic Acid Daryl (0.7-2.0) mmol/L Magnesium (1.6-2.3) mg/dL Ur Leukocyte Esterase (Negative) Assessment and Plan Plan: Hyponatremia Likely secondary to HCTZ, will discontinue TSH okay Repeat level in the morning IV fluids Anxiety We'll put her back on Xanax Follow-up Essential hypertension Continue lisinopril Hold HCTZ Monitor blood pressure Hyperlipidemia Continue statin Anticipated length of stay >2 midnights, patient will be admitted as inpatient
[2019-04-30] MEDS ORDERED: ALPRAZolam 0.5 MG TAB PO SCH (21:00)
[2019-04-30] MEDS ORDERED: NON FORMULARY DRUG (Brimonidine Tartrate/Timolol [Combigan 0.2%-0.5% Eye Drops] 1 DROP) RIGHT EYE SCH (21:00)
[2019-04-30] MEDS ORDERED: LORazepam 1 MG TAB PO SCH (22:00)
[2019-04-30] MEDS: ATORVASTATIN 10 MG TAB PO SCH (22:10)
[2019-04-30] MEDS: amLODIPine 5 MG TAB PO SCH (22:10)
[2019-04-30] MEDS: BRIMONIDINE TARTRATE 0.2% DROPS 5 ML BTL RIGHT EYE SCH (22:10)
[2019-04-30] MEDS: MELATONIN 5 MG TABLET PO SCH (22:10)
[2019-04-30] MEDS: TIMOLOL 0.5% OPHTH DROPS 5 ML BTL RIGHT EYE SCH (22:10)
[2019-04-30] MEDS: ALPRAZolam 0.5 MG TAB PO PRN (22:10)
[2019-04-30] MEDS: LATANOPROST 0.005% OPHTH DROPS 2.5 ML BTL BOTH EYES SCH (22:11)
[2019-05-01] MEDS: PANTOPRAZOLE 40 MG TABLET PO SCH (05:59)
[2019-05-01] MEDS: LEVOTHYROXINE 88 MCG TAB PO SCH (05:59)
[2019-05-01 06:08] LABS: Basophils % (A) 1 %; Eosinophils # (A) 0.2 k/uL (0-0.7); Eosinophils % (A) 3 %; HCT 32.3 % (34.0-46.0); HGB 11.5 gm/dL (11.4-16.0); Hyperchromasia Slight; Lymphocytes # (A) 1.5 k/uL (1.0-4.8); Lymphocytes % (A) 28 %; MCHC 35.6 g/dL (31.0-37.0); MCV 84.3 fL (80.0-100.0); Mean Platelet Volume 6.7; Monocytes # (A) 0.6 k/uL (0-1.0); Monocytes % (A) 12 %; Neutrophils # (A) 2.9 k/uL (1.3-7.7); Neutrophils % (A) 54 %; Platelet Count 267 k/uL (150-450); RBC 3.84 m/uL (3.80-5.40); WBC 5.4 k/uL (3.8-10.6)
[2019-05-01 06:51] LABS: ALT 17 U/L (9-52); AST 19 U/L (14-36); African American GFR (CKD) >90 (>60 ml/min/1.73 sqM); Albumin 3.4 g/dL (3.5-5.0); Alkaline Phosphatase 46 U/L (38-126); Blood Urea Nitrogen 8 mg/dL (7-17); Calcium 8.6 mg/dL (8.4-10.2); Chloride 92 mmol/L (98-107); Glucose 98 mg/dL (74-99); Magnesium 1.7 mg/dL (1.6-2.3); Potassium 3.4 mmol/L (3.5-5.1); Sodium 126 mmol/L (137-145); Total Bilirubin 0.7 mg/dL (0.2-1.3); Total Protein 5.7 g/dL (6.3-8.2)
[2019-05-01 07:06] LABS: Anion Gap 6 mmol/L; Carbon Dioxide 28 mmol/L (22-30)
[2019-05-01] MEDS ORDERED: POTASSIUM CHLORIDE ER 20 MEQ TAB.ER PO STA (08:02)
[2019-05-01] MEDS: BRIMONIDINE TARTRATE 0.2% DROPS 5 ML BTL RIGHT EYE SCH ×2 (08:34→20:15)
[2019-05-01] MEDS: ALPRAZolam 0.5 MG TAB PO PRN ×3 (08:34→20:15)
[2019-05-01] MEDS: TIMOLOL 0.5% OPHTH DROPS 5 ML BTL RIGHT EYE SCH ×2 (08:34→20:15)
[2019-05-01] MEDS: SODIUM CHLORIDE 0.9% 1,000 ML IV SCH (08:35)
[2019-05-01] MEDS: CHOLECALCIFEROL 1,000 UNIT TAB PO SCH (08:35)
[2019-05-01] MEDS: LISINOPRIL 20 MG TAB PO SCH (08:35)
[2019-05-01] MEDS: MULTIVITAMINS, THERA 1 EACH TAB PO SCH (08:35)
[2019-05-01] MEDS ORDERED: PANTOPRAZOLE 40 MG/10 ML VIAL IV SCH (09:00)
[2019-05-01] MEDS ORDERED: MAGNESIUM HYDROXIDE 2,400 MG/10 ML CUP PO PRN (10:49)
[2019-05-01] MEDS ORDERED: ARTIFICIAL TEARS-HYPROMELLOSE DROPS 15 ML BTL BOTH EYES PRN (10:50)
--- NOTE | 2019-05-01 11:30 | P.PN ---
Subjective Progress Note Date: 05/01/19 Principal diagnosis: Hyponatremia Patient was seen and examined. No acute events overnight. Patient reports resolution of her lightheadedness. She complains of some queasiness and some nausea this morning but no vomiting. States that her abdominal pain has resolved. Has been trying milk of magnesia and prune juice without bowel movement since last Friday. States that she has been getting epigastric discomfort but associates that with her severe anxiety and from attempting to get off of Xanax. She denies any chest pain, shortness of breath or palpitations. No fever or chills. Objective - Vital Signs Vital signs: Vital Signs Temp 98.3 F 05/01/19 08:49 Pulse 58 L 05/01/19 08:53 Resp 16 05/01/19 08:53 BP 145/71 05/01/19 08:49 Pulse Ox 97 05/01/19 08:49 Intake & Output 04/30/19 05/01/19 05/01/19 18:59 06:59 18:59 Intake Total 480 Balance 480 Weight 64.41 kg Intake: Oral 480 Other: Voiding Method Toilet - Exam General: [non toxic], [no distress], [appears at stated age] Derm: [warm], [dry] Head: [atraumatic], [normocephalic], [symmetric] Eyes: [EOMI], [no lid lag], [anicteric sclera] Mouth: [no lip lesion], [mucus membranes moist] Cardiovascular: [S1S2 reg], [no murmur], [positive DP pulse bilateral], Lungs: [CTA bilateral], [no rhonchi, no rales] , [no accessory muscle use] Abdominal: [soft], [ nontender to palpation], [no guarding], [no appreciable organomegaly] Ext: [no gross muscle atrophy], [no edema], [no contractures] Neuro: [no focal neuro deficits] Psych: [Alert], [oriented], [appropriate affect] - Labs CBC & Chem 7: 05/01/19 05:28 05/01/19 05:28 Labs: Abnormal Lab Results - Last 24 Hours (Table) 04/30/19 04/30/19 04/30/19 Range/Units 16:35 16:45 16:45 Hct (34.0-46.0) % Sodium 123 L (137-145) mmol/L Potassium (3.5-5.1) mmol/L Chloride 86 L (98-107) mmol/L Glucose 115 H (74-99) mg/dL Osmolality (280-301) mosm/kg Plasma Lactic Acid Daryl 0.6 L (0.7-2.0) mmol/L Magnesium 1.2 L (1.6-2.3) mg/dL Total Protein (6.3-8.2) g/dL Albumin (3.5-5.0) g/dL Ur Leukocyte Esterase Small H (Negative) 04/30/19 05/01/19 05/01/19 Range/Units 16:45 05:28 05:28 Hct 32.3 L (34.0-46.0) % Sodium 126 L (137-145) mmol/L Potassium 3.4 L (3.5-5.1) mmol/L Chloride 92 L (98-107) mmol/L Glucose (74-99) mg/dL Osmolality 250 L (280-301) mosm/kg Plasma Lactic Acid Daryl (0.7-2.0) mmol/L Magnesium (1.6-2.3) mg/dL Total Protein 5.7 L (6.3-8.2) g/dL Albumin 3.4 L (3.5-5.0) g/dL Ur Leukocyte Esterase (Negative) Assessment and Plan Assessment: Assessment and Plan Hyponatremia Hypokalemia Abdominal discomfort likely gastritis or GERD Hypertension Dyslipidemia Anxiety Glaucoma Hypothyroidism Sodium 123-126. Likely due to hydrochlorothiazide. Plans: DC HCTZ. Continue normal saline at 75 mL per hour. Repeat BMP in the morning. Potassium 3.4. Plans: Replace via protocol. Repeat BMP in the morning. Possibly related to gastritis from increasing anxiety. Plans: Protonix by mouth. Zofran is negative for nausea or vomiting. BP 145/71. Plans: Start amlodipine, lisinopril. Monitor vitals, adjust medications as necessary. Plans: Resume Lipitor. Plans: Xanax 0.5 mg by mouth 3 times a day as needed for anxiety. Plans: Resume Brimonide and Timolol eyedrops. Plans: Resume Synthroid. [Patient admitted for hyponatremia. She is improving slowly. Repeat BMP tomor merced. DC home 1-2 days if improved.]
[2019-05-01] MEDS: LATANOPROST 0.005% OPHTH DROPS 2.5 ML BTL BOTH EYES SCH (20:14)
[2019-05-01] MEDS: amLODIPine 5 MG TAB PO SCH (20:15)
[2019-05-01] MEDS: ATORVASTATIN 10 MG TAB PO SCH (20:15)
[2019-05-01] MEDS: MELATONIN 5 MG TABLET PO SCH (20:15)
[2019-05-02 06:25] LABS: Potassium 4.7 mmol/L (3.5-5.1)
[2019-05-02] MEDS: LEVOTHYROXINE 88 MCG TAB PO SCH (06:51)
[2019-05-02] MEDS: SODIUM CHLORIDE 0.9% 1,000 ML IV SCH (06:51)
[2019-05-02] MEDS: PANTOPRAZOLE 40 MG TABLET PO SCH (06:51)
[2019-05-02] MEDS: BRIMONIDINE TARTRATE 0.2% DROPS 5 ML BTL RIGHT EYE SCH ×2 (08:58→21:05)
[2019-05-02] MEDS: TIMOLOL 0.5% OPHTH DROPS 5 ML BTL RIGHT EYE SCH ×2 (08:59→21:05)
[2019-05-02] MEDS: ALPRAZolam 0.5 MG TAB PO PRN ×3 (09:06→23:26)
[2019-05-02] MEDS: CHOLECALCIFEROL 1,000 UNIT TAB PO SCH (09:07)
[2019-05-02] MEDS: MULTIVITAMINS, THERA 1 EACH TAB PO SCH (09:07)
[2019-05-02] MEDS: LISINOPRIL 20 MG TAB PO SCH (09:07)
--- NOTE | 2019-05-02 09:52 | P.PN ---
Subjective Progress Note Date: 05/02/19 Principal diagnosis: Hyponatremia 05/02/2019: Patient states that she was feeling better this morning but now she feels lethargic, she is nauseated but no vomiting. She denies chest pain or shortness of breath, no dizziness no hematuria dysuria hematemesis or hematochezia. Objective - Vital Signs Vital signs: Vital Signs Temp 97.5 F L 05/02/19 00:00 Pulse 73 05/02/19 04:00 Resp 15 05/02/19 04:00 BP 112/67 05/02/19 04:00 Pulse Ox 96 05/02/19 04:00 Intake & Output 05/01/19 05/02/19 05/02/19 18:59 06:59 18:59 Intake Total 2220 1560 240 Output Total 825 Balance 1395 1560 240 Weight 64.41 kg Intake: Intake, IV Titration 900 600 Amount Sodium Chloride 0.9% 1, 900 600 000 ml @ 75 mls/hr IV . [id number] [facility] Rx#:[id number] Oral 1320 960 240 Output: Urine 825 Other: Voiding Method Toilet Toilet # Voids 1 4 # Bowel Movements 3 - Exam General: [non toxic], [no distress], awake alert oriented 3 Derm: [warm], [dry] Head: [atraumatic], [normocephalic], [symmetric], facial hemangioma chronic Eyes: [EOMI], [no lid lag], [anicteric sclera], lip hemangioma Mouth: [no lip lesion], [mucus membranes moist] Cardiovascular: [S1S2 reg], [no murmur], [positive DP pulse bilateral], Lungs: [CTA bilateral], [no rhonchi, no rales] , [no accessory muscle use] Abdominal: [soft], [ nontender to palpation], [no guarding] Ext: [no gross muscle atrophy], [no edema], [no contractures] Neuro: [no focal neuro deficits] Psych: [Alert], [oriented], mild anxiety - Labs CBC & Chem 7: 05/01/19 05:28 05/02/19 05:22 Labs: Abnormal Lab Results - Last 24 Hours (Table) 05/02/19 Range/Units 05:22 Sodium 135 L (137-145) mmol/L Assessment and Plan Plan: Assessment and Plan Hyponatremia Hypokalemia Abdominal discomfort likely gastritis or GERD Hypertension Dyslipidemia Anxiety Glaucoma Hypothyroidism Sodium 123-126. Likely due to hydrochlorothiazide, now improved to 135. Plans: DC HCTZ. Discontinue normal saline at 75 mL per hour. Mild hypokalemia. K3.4 05/01/2019, now 4.7 Possibly related to gastritis from increasing anxiety. Plans: Protonix by mouth(discontinued as patient attributes her discomfort being started on Protonix). Zofran is negative for nausea or vomiting. BP 145/71. Plans: Started amlodipine, lisinopril. Monitor vitals, adjust medications as necessary. Blood pressure acceptable. Plans: Resume Lipitor. Plans: Xanax 0.5 mg by mouth 3 times a day as needed for anxiety. Plans: Resume Brimonide and Timolol eyedrops. Plans: Resume Synthroid. [Patient admitted for hyponatremia. She is better. Repeat labs, disposition, likely home tomorrow.
[2019-05-02] MEDS: LATANOPROST 0.005% OPHTH DROPS 2.5 ML BTL BOTH EYES SCH (21:05)
[2019-05-02] MEDS: MELATONIN 5 MG TABLET PO SCH (21:05)
[2019-05-02] MEDS: amLODIPine 5 MG TAB PO SCH (21:05)
[2019-05-02] MEDS: ATORVASTATIN 10 MG TAB PO SCH (21:05)
[2019-05-03] MEDS: LEVOTHYROXINE 88 MCG TAB PO SCH (06:22)
[2019-05-03] MEDS: ALPRAZolam 0.5 MG TAB PO PRN (06:23)
[2019-05-03 07:07] LABS: Basophils % (A) 1 %; Eosinophils # (A) 0.2 k/uL (0-0.7); Eosinophils % (A) 5 %; HCT 32.5 % (34.0-46.0); HGB 11.2 gm/dL (11.4-16.0); Lymphocytes # (A) 1.5 k/uL (1.0-4.8); Lymphocytes % (A) 30 %; MCH 29.9 pg (25.0-35.0); MCHC 34.4 g/dL (31.0-37.0); MCV 86.7 fL (80.0-100.0); Mean Platelet Volume 6.7; Monocytes # (A) 0.4 k/uL (0-1.0); Monocytes % (A) 8 %; Neutrophils # (A) 2.8 k/uL (1.3-7.7); Neutrophils % (A) 54 %; Platelet Count 261 k/uL (150-450); RBC 3.74 m/uL (3.80-5.40); RDW 13.8 % (11.5-15.5); WBC 5.1 k/uL (3.8-10.6)
[2019-05-03 07:33] LABS: ALT 20 U/L (9-52); AST 18 U/L (14-36); African American GFR (CKD) >90 (>60 ml/min/1.73 sqM); Albumin 3.3 g/dL (3.5-5.0); Alkaline Phosphatase 46 U/L (38-126); Anion Gap 5 mmol/L; Blood Urea Nitrogen 5 mg/dL (7-17); Calcium 8.9 mg/dL (8.4-10.2); Carbon Dioxide 28 mmol/L (22-30); Chloride 103 mmol/L (98-107); Glucose 81 mg/dL (74-99); Potassium 4.2 mmol/L (3.5-5.1); Sodium 136 mmol/L (137-145); Total Bilirubin 0.5 mg/dL (0.2-1.3); Total Protein 5.7 g/dL (6.3-8.2)
[2019-05-03] MEDS: BRIMONIDINE TARTRATE 0.2% DROPS 5 ML BTL RIGHT EYE SCH (08:24)
[2019-05-03] MEDS: TIMOLOL 0.5% OPHTH DROPS 5 ML BTL RIGHT EYE SCH (08:24)
[2019-05-03] MEDS: MULTIVITAMINS, THERA 1 EACH TAB PO SCH (08:25)
[2019-05-03] MEDS: LISINOPRIL 20 MG TAB PO SCH (08:25)
[2019-05-03] MEDS: CHOLECALCIFEROL 1,000 UNIT TAB PO SCH (08:25)
[2019-05-03 08:31] VITALS: RESP 16; TEMP 96.5
[2019-05-03] MEDS ORDERED: CARVEDILOL 3.125 MG TAB PO STA (10:28)
[2019-05-03 10:34] VITALS: BP 172/77; PULSE 80
--- NOTE | 2019-05-03 10:36 | P.DS ---
Providers Date of admission: 04/30/19 17:53 Expected date of discharge: 05/03/19 Attending physician: William Agudelo MD Primary care physician: Marianne Celis MD - Discharge Diagnosis(es) (1) Hyponatremia Current Visit: Yes Status: Acute (2) Hypokalemia Current Visit: Yes Status: Acute (3) Generalized anxiety disorder Current Visit: No Status: Acute (4) Hypertension Current Visit: No Status: Acute (5) Hypothyroidism Current Visit: No Status: Acute (6) GERD (gastroesophageal reflux disease) Current Visit: Yes Status: Acute Hospital Course: the patient is a 73-year-old female with a history of essential hypertension anxiety that was admitted with symptomatic hyponatremia after presenting with symptoms of weakness and lightheadedness nausea and vomiting and dry heaves. She presented with a serum sodium of 123 that was attributed to her use of hydrochlorothiazide in combination with lisinopril to control her blood pressure, HCTZ was discontinued and the patient was placed on normal saline and the patient's sodium was corrected gently. She was also noted to have hypokalemia and this was also replaced. She complained of ongoing nausea and this was attributed to underlying GERD/possible gastritis she was continued on PPI therapy. Blood pressure became labile after discontinuing HCTZ, he was subsequently started on Coreg 3.125 mg PO BID to control her blood pressure she was subsequently discharged home in stable condition and instructed to follow-up with her PCP. This discharge process took approximately 35 minutes Focused exam Cardiovascular: Regular rate and rhythm no murmurs or gallops, no peripheral edema or JVD Patient Condition at Discharge: Good Plan - Discharge Summary Discharge Rx Participant: Yes New Discharge Prescriptions: No Action amLODIPine [Norvasc] 5 mg PO HS Simvastatin [Zocor] 20 mg PO HS Cholecalciferol [Vitamin D3 (25 Mcg = 1000 Iu)] 1,000 unit PO DAILY Levothyroxine Sodium [Synthroid] 88 mcg PO DAILY ALPRAZolam [Xanax] 0.5 mg PO TID PRN PRN Reason: Anxiety Travoprost [Travatan Z 0.004%] 1 drop BOTH EYES HS Lisinopril-Hctz 20-12.5 mg [Zestoretic 20-12.5] 1 tab PO DAILY Brimonidine Tartrate/Timolol [Combigan 0.2%-0.5% Eye Drops] 1 drop RIGHT EYE BID Multivitamins, Thera [Multivitamin (formulary)] 1 tab PO DAILY Melatonin 5 mg PO HS Biotin 1,000 Mcg 1,000 mcg PO DAILY LORazepam [Ativan] 1 mg PO TID 3 Days #9 tab Ondansetron [Zofran] 4 mg PO Q8HR PRN #30 tab PRN Reason: Nausea And Vomiting Omeprazole 40 mg PO DAILY Discharge Medication List ALPRAZolam [Xanax] 0.5 mg PO TID PRN 08/03/17 [History] Brimonidine Tartrate/Timolol [Combigan 0.2%-0.5% Eye Drops] 1 drop RIGHT EYE BID 08/03/17 [History] Cholecalciferol [Vitamin D3 (25 Mcg = 1000 Iu)] 1,000 unit PO DAILY 08/03/17 [History] Levothyroxine Sodium [Synthroid] 88 mcg PO DAILY 08/03/17 [History] Lisinopril-Hctz 20-12.5 mg [Zestoretic 20-12.5] 1 tab PO DAILY 08/03/17 [History] Simvastatin [Zocor] 20 mg PO HS 08/03/17 [History] Travoprost [Travatan Z 0.004%] 1 drop BOTH EYES HS 08/03/17 [History] amLODIPine [Norvasc] 5 mg PO HS 08/03/17 [History] Melatonin 5 mg PO HS 06/05/18 [History] Multivitamins, Thera [Multivitamin (formulary)] 1 tab PO DAILY 06/05/18 [History] Biotin 1,000 Mcg 1,000 mcg PO DAILY 06/15/18 [History] LORazepam [Ativan] 1 mg PO TID 3 Days #9 tab 04/26/19 [Rx] Ondansetron [Zofran] 4 mg PO Q8HR PRN #30 tab 04/26/19 [Rx] Omeprazole 40 mg PO DAILY 04/30/19 [History] Follow up Appointment(s)/Referral(s): Marianne Celis MD [Primary Care Provider] - 05/04/19 11:00 am (Friday -previously scheduled appointment) Patient Instructions/Handouts: Hyponatremia (DC), Hypertension (DC)
[2019-05-03] MEDS ORDERED: CARVEDILOL 3.125 MG TAB PO SCH (17:30)
== END 2019-05-03 12:08 | disposition home or self-care (01) | DRG 641 ==
LOC: EC 15:34 → 3SCARD 17:53
PROVIDERS: ADMIT Family Medicine; ATTEND Family Medicine
DX: E87.1 Hypo-osmolality and hyponatremia (principal); E86.0 Dehydration; T50.2X5A Adverse effect of carbonic-anhydrase inhibitors, benzothiadiazides and other diuretics, initial encounter; E03.9 Hypothyroidism, unspecified; E87.6 Hypokalemia; F41.1 Generalized anxiety disorder; I10 Essential (primary) hypertension; K21.9 Gastro-esophageal reflux disease without esophagitis; E78.5 Hyperlipidemia, unspecified; K29.70 Gastritis, unspecified, without bleeding; D18.09 Hemangioma of other sites; H40.9 Unspecified glaucoma; Z87.11 Personal history of peptic ulcer disease; Z79.890 Hormone replacement therapy; Z79.899 Other long term (current) drug therapy; Z90.710 Acquired absence of both cervix and uterus; Z90.49 Acquired absence of other specified parts of digestive tract; Z98.49 Cataract extraction status, unspecified eye; Z85.42 Personal history of malignant neoplasm of other parts of uterus
CPT/HCPCS: 36415; 74022; 80048; 80053; 81001; 82248; 82550; 83605; 83690; 83735; 83930; 83935; 84484; 85025; 85610; 85730; 93005; 96361; 96365; 96375; 99285

== ENCOUNTER 2019-05-08 06:25 | Inpatient (IN) | payer MEDICARE ==
[2019-05-08 07:13] LABS: Appearance,Urine Clear (Clear); Bilirubin,Urine Negative (Negative); Blood,Urine Negative (Negative); Color,Urine Light Yellow; Glucose,Urine (UA) Negative (Negative); Ketones,Urine Negative (Negative); Leukocyte Esterase,Urine Negative (Negative); Nitrite,Urine Negative (Negative); Protein,Urine Negative (Negative); Specific Gravity,Urine 1.009 (1.001-1.035); Urobilinogen,Urine <2.0 mg/dL (<2.0)
[2019-05-08 07:14] LABS: Basophils % (A) 1 %; Eosinophils # (A) 0.2 k/uL (0-0.7); Eosinophils % (A) 4 %; HCT 34.7 % (34.0-46.0); HGB 12.7 gm/dL (11.4-16.0); Lymphocytes # (A) 1.5 k/uL (1.0-4.8); Lymphocytes % (A) 24 %; MCH 30.7 pg (25.0-35.0); MCHC 36.7 g/dL (31.0-37.0); MCV 83.6 fL (80.0-100.0); Mean Platelet Volume 6.8; Monocytes # (A) 0.4 k/uL (0-1.0); Monocytes % (A) 7 %; Neutrophils # (A) 3.9 k/uL (1.3-7.7); Neutrophils % (A) 64 %; Platelet Count 301 k/uL (150-450); RBC 4.15 m/uL (3.80-5.40); WBC 6.1 k/uL (3.8-10.6)
[2019-05-08 07:28] LABS: ALT 24 U/L (9-52); AST 23 U/L (14-36); African American GFR (CKD) >90 (>60 ml/min/1.73 sqM); Albumin 4.3 g/dL (3.5-5.0); Alkaline Phosphatase 54 U/L (38-126); Anion Gap 13 mmol/L; Blood Urea Nitrogen 7 mg/dL (7-17); Calcium 9.2 mg/dL (8.4-10.2); Carbon Dioxide 23 mmol/L (22-30); Chloride 88 mmol/L (98-107); Glucose 117 mg/dL (74-99); Magnesium 1.2 mg/dL (1.6-2.3); Sodium 124 mmol/L (137-145); Total Bilirubin 0.7 mg/dL (0.2-1.3)
[2019-05-08] MEDS ORDERED: SODIUM CHLORIDE 0.9% 1,000 ML IV ONE (07:46)
[2019-05-08] MEDS ORDERED: MAGNESIUM SULFATE-D5W PMX 1 GM in DEXTROSE/WATER 1 100ML.BAG IVPB ONE (07:55)
[2019-05-08] MEDS ORDERED: MAGNESIUM OXIDE 400 MG TAB PO STA (07:55)
[2019-05-08] MEDS ORDERED: ONDANSETRON 4 MG/2 ML VIAL IVP STA (07:55)
[2019-05-08] MEDS: SODIUM CHLORIDE 0.9% 1,000 ML IV SCH ×3 (07:56→23:12)
--- NOTE | 2019-05-08 08:03 | ED ---
Nausea/Vomiting/Diarrhea HPI <Will Maldonado - Last Filed: 05/08/19 08:05> - General Source: patient, EMS Mode of arrival: EMS Limitations: no limitations <Neena Elliott - Last Filed: 05/08/19 08:21> - General Chief complaint: Nausea/Vomiting/Diarrhea Stated complaint: Nausea Time Seen by Provider: 05/08/19 06:32 - History of Present Illness Initial comments: 73yo female presenting to the ER for 1 day of severe nausea. Patient states she was recently discharged from [facility] for hyponatremia hypochloremia as well as low potassium. She states it was attributed to her lasix which were discontinued. Patient states she was feeling ok upon discharge but became nauseated similar to the sensation she was experiencing prior to the most recent admission. Patient denies vomiting. States she it tolerating oral intake. Denies chest pain or shortness of breath headache dizziness melena hematochezia. Patient denies diarrhea, history of CHF or history of leg swelling. Denies hemoptysis or history of cancer. Patient denies kidney disease. Patient denies any gait changes, falls, syncopal episodes confusion dizziness. Remaining review of system negative. Patient arrived to the emergency department and called EMS for transportation. (Neena Elliott) - Related Data Home Medications Medication Instructions Recorded Confirmed ALPRAZolam [Xanax] 0.5 mg PO TID PRN 08/03/17 04/30/19 Brimonidine Tartrate/Timolol 1 drop RIGHT EYE BID 08/03/17 04/30/19 [Combigan 0.2%-0.5% Eye Drops] Cholecalciferol [Vitamin D3 (25 1,000 unit PO DAILY 08/03/17 04/30/19 Mcg = 1000 Iu)] Levothyroxine Sodium [Synthroid] 88 mcg PO DAILY 08/03/17 04/30/19 Simvastatin [Zocor] 20 mg PO HS 08/03/17 04/30/19 Travoprost [Travatan Z 0.004%] 1 drop BOTH EYES HS 08/03/17 04/30/19 amLODIPine [Norvasc] 5 mg PO HS 08/03/17 04/30/19 Melatonin 5 mg PO HS 06/05/18 04/30/19 Multivitamins, Thera [Multivitamin 1 tab PO DAILY 06/05/18 04/30/19 (formulary)] Biotin 1,000 Mcg 1,000 mcg PO DAILY 06/15/18 04/30/19 Omeprazole 40 mg PO DAILY 04/30/19 04/30/19 Previous Rx's Medication Instructions Recorded LORazepam [Ativan] 1 mg PO TID 3 Days #9 tab 04/26/19 Ondansetron [Zofran] 4 mg PO Q8HR PRN #30 tab 04/26/19 Carvedilol [Coreg] 3.125 mg PO BID-W/MEALS #60 tab 05/03/19 Lisinopril [Zestril] 20 mg PO DAILY #30 tab 05/03/19 Allergies Allergy/AdvReac Type Severity Reaction Status Date / Time No Known Allergies Allergy Verified 04/30/19 16:26 Review of Systems ROS Other: All systems not noted in ROS Statement are negative. <Will Maldonado - Last Filed: 05/08/19 08:05> ROS Other: All systems not noted in ROS Statement are negative. <Neena Elliott - Last Filed: 05/08/19 08:21> ROS Statement: Those systems with pertinent positive or pertinent negative responses have been documented in the HPI. 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 History of Any Multi-Drug Resistant Organisms: None Reported Past Surgical History: Cholecystectomy, Hysterectomy Additional Past Surgical History / Comment(s): uterine cancer, cataract surgery Past Anesthesia/Blood Transfusion Reactions: Postoperative Nausea & Vomiting (PONV) Past Psychological History: Anxiety Smoking Status: Never smoker Past Alcohol Use History: None Reported Past Drug Use History: None Reported - Past Family History Mother Family Medical History: No Reported History <Neena Elliott - Last Filed: 05/08/19 08:21> General Exam Limitations: no limitations <Neena Elliott - Last Filed: 05/08/19 08:21> - General Exam Comments Initial Comments: General: The patient is awake and alert, in no distress Eye: +3 mm pupils are equal, round and reactive to light, extra-ocular movements are intact. No nystagmus. There is normal conjunctiva bilaterally. No signs of icterus. Ears, nose, mouth and throat: There are moist mucous membranes and no oral lesions. Neck: The neck is supple, there is no tenderness or JVD. Cardiovascular: There is a regular rate and rhythm. No murmur, rub or gallop is appreciated. Respiratory: Lungs are clear to auscultation, respirations are non-labored, breath sounds are equal. No wheezes, stridor, rales, or rhonchi. Gastrointestinal: Soft, non-distended, non-tender abdomen without masses or organomegaly noted. There is no rebound or guarding present. Musculoskeletal: Normal ROM, no tenderness. Strength 5/5. Sensation intact. Pulses equal bilaterally 2+. Neurological: A&O x 3. CN II-XII intact grossly, There are no obvious motor or sensory deficits. Coordination appears grossly intact. Speech is normal. Skin: Skin is warm and dry and no rashes or lesions are noted. No LE edema. Psychiatric: Cooperative, appropriate mood & affect, normal judgment. (Neena Elliott) Course Vital Signs 05/08/19 05/08/19 06:27 08:05 Temperature 98.3 F Pulse Rate 69 78 Respiratory 18 18 Rate Blood Pressure 166/85 188/89 O2 Sat by Pulse 95 98 Oximetry Medical Decision Making - Lab Data Result diagrams: 05/08/19 06:46 05/08/19 06:46 <Will Maldonado - Last Filed: 05/08/19 08:05> - Lab Data Result diagrams: 05/08/19 06:46 05/08/19 06:46 <Neena Elliott - Last Filed: 05/08/19 08:21> - Medical Decision Making Patient reexamined and reevaluated by myself, Dr. Maldonado. Patient resting in bed however still complains of nausea. Case was discussed in detail with , who will admit covering for Dr. Celis. Patient updated. I do agree with the findings. This includes diagnostic interpretation and treatment plans. (Will Maldonado) 73yo female presented for severe nausea x 1 day. Recent admission for hyponatremia, hypochloremia, hypokalemia thought initially due to Lasix and administration. Patient has had Lasix discontinued. Patient had normalizing sodium upon discharge. However now patient is lower than previous admission. Patient has no other signs or symptoms abdominal exam benign. Denies chest pain EKG no acute findings initial troponin negative. Urinalysis including exte nsive urine studies were started for inpatient review and further management patient. Patient did have chest x-ray obtained to the emergency department to rule out congestive process/masses. (Neena Elliott) - Lab Data Lab Results 05/08/19 05/08/19 05/08/19 Range/Units 06:36 06:46 06:46 WBC 6.1 (3.8-10.6) k/uL RBC 4.15 (3.80-5.40) m/uL Hgb 12.7 (11.4-16.0) gm/dL Hct 34.7 (34.0-46.0) % MCV 83.6 (80.0-100.0) fL MCH 30.7 (25.0-35.0) pg MCHC 36.7 (31.0-37.0) g/dL RDW 12.0 (11.5-15.5) % Plt Count 301 (150-450) k/uL Neutrophils % 64 % Lymphocytes % 24 % Monocytes % 7 % Eosinophils % 4 % Basophils % 1 % Neutrophils # 3.9 (1.3-7.7) k/uL Lymphocytes # 1.5 (1.0-4.8) k/uL Monocytes # 0.4 (0-1.0) k/uL Eosinophils # 0.2 (0-0.7) k/uL Basophils # 0.0 (0-0.2) k/uL Sodium 124 L (137-145) mmol/L Potassium 4.0 (3.5-5.1) mmol/L Chloride 88 L (98-107) mmol/L Carbon Dioxide 23 (22-30) mmol/L Anion Gap 13 mmol/L BUN 7 (7-17) mg/dL Creatinine 0.64 (0.52-1.04) mg/dL Est GFR (CKD-EPI)AfAm >90 (>60 ml/min/1.73 sqM) Est GFR (CKD-EPI)NonAf 88 (>60 ml/min/1.73 sqM) Glucose 117 H (74-99) mg/dL Calcium 9.2 (8.4-10.2) mg/dL Magnesium 1.2 L (1.6-2.3) mg/dL Total Bilirubin 0.7 (0.2-1.3) mg/dL AST 23 (14-36) U/L ALT 24 (9-52) U/L Alkaline Phosphatase 54 (38-126) U/L Troponin I (0.000-0.034) ng/mL Total Protein 7.0 (6.3-8.2) g/dL Albumin 4.3 (3.5-5.0) g/dL Lipase 42 (23-300) U/L Urine Color Light Yellow Urine Appearance Clear (Clear) Urine pH 7.0 (5.0-8.0) Ur Specific [place] 1.009 (1.001-1.035) Urine Protein Negative (Negative) Urine Glucose (UA) Negative (Negative) Urine Ketones Negative (Negative) Urine Blood Negative (Negative) Urine Nitrite Negative (Negative) Urine Bilirubin Negative (Negative) Urine Urobilinogen <2.0 (<2.0) mg/dL Ur Leukocyte Esterase Negative (Negative) 05/08/19 Range/Units 06:46 WBC (3.8-10.6) k/uL RBC (3.80-5.40) m/uL Hgb (11.4-16.0) gm/dL Hct (34.0-46.0) % MCV (80.0-100.0) fL MCH (25.0-35.0) pg MCHC (31.0-37.0) g/dL RDW (11.5-15.5) % Plt Count (150-450) k/uL Neutrophils % % Lymphocytes % % Monocytes % % Eosinophils % % Basophils % % Neutrophils # (1.3-7.7) k/uL Lymphocytes # (1.0-4.8) k/uL Monocytes # (0-1.0) k/uL Eosinophils # (0-0.7) k/uL Basophils # (0-0.2) k/uL Sodium (137-145) mmol/L Potassium (3.5-5.1) mmol/L Chloride (98-107) mmol/L Carbon Dioxide (22-30) mmol/L Anion Gap mmol/L BUN (7-17) mg/dL Creatinine (0.52-1.04) mg/dL Est GFR (CKD-EPI)AfAm (>60 ml/min/1.73 sqM) Est GFR (CKD-EPI)NonAf (>60 ml/min/1.73 sqM) Glucose (74-99) mg/dL Calcium (8.4-10.2) mg/dL Magnesium (1.6-2.3) mg/dL Total Bilirubin (0.2-1.3) mg/dL AST (14-36) U/L ALT (9-52) U/L Alkaline Phosphatase (38-126) U/L Troponin I <0.012 (0.000-0.034) ng/mL Total Protein (6.3-8.2) g/dL Albumin (3.5-5.0) g/dL Lipase (23-300) U/L Urine Color Urine Appearance (Clear) Urine pH (5.0-8.0) Ur Specific [place] (1.001-1.035) Urine Protein (Negative) Urine Glucose (UA) (Negative) Urine Ketones (Negative) Urine Blood (Negative) Urine Nitrite (Negative) Urine Bilirubin (Negative) Urine Urobilinogen (<2.0) mg/dL Ur Leukocyte Esterase (Negative) - EKG Data EKG Comments: Ventricular rate 66 bpm, TX interval 156 ms, QRS duration 90 ms, QT/QTC 380/398 ms. This is normal sinus. Left axis noted. Significant artifact. Nonspecific T-wave abnormalities. EKG is personally interpreted and reviewed by attending provider (Neena Elliott) Disposition <Will Maldonado - Last Filed: 05/08/19 08:05> Is patient prescribed a controlled substance at d/c from ED?: No Time of Disposition: 08:21 Decision to Admit Reason: Admit from EC Decision Date: 05/08/19 Decision Time: 08:21 <Neena Elliott - Last Filed: 05/08/19 08:21> Clinical Impression: Nausea, Hyponatremia, Hypochloremia, Hypomagnesemia Disposition: ADMITTED IP TO THIS [facility] Condition: Stable Referrals: Marianne Celis MD [Primary Care Provider] - 1-2 days
[2019-05-08] MEDS ORDERED: LISINOPRIL 20 MG TAB PO STA (08:14)
[2019-05-08] MEDS ORDERED: LORazepam 2 MG/ML INJ IV STA (08:39)
[2019-05-08] MEDS ORDERED: METOCLOPRAMIDE 5 MG/ML 2 ML VIAL IVP STA (08:39)
[2019-05-08 08:53] LABS: Uric Acid 2.3 mg/dL (3.7-7.4)
[2019-05-08] MEDS ORDERED: NALOXONE 0.4 MG/ML 1 ML VIAL IV PRN (08:56)
[2019-05-08 12:02] VITALS: BMI 22.6
[2019-05-08] MEDS ORDERED: ALPRAZolam 0.5 MG TAB PO PRN (12:52)
--- NOTE | 2019-05-08 13:18 | P.NPCON ---
History of Present Illness - Reason for Consult Consult date: 05/08/19 hyponatremia - Chief Complaint Nausea - History of Present Illness Admitted to the hospital with few day history of nausea. She was recently in the hospital for hyponatremia with a sodium of 123. Her hydrochlorothiazide was discontinued last visit. She has chronic hyponatremia with a baseline sodium of 133-136. Since discharge she was feeling better. She continue to take lisinopril for her hypertension. She has anxiety disorder and used to take Xanax. She also admits drinking a lot of free water per day. She had nausea and was drinking a lot of free water. She denies taking diuretics at home. She came in with a sodium of 124, and started on IV fluids. Urine osmolality is 400. No urine electrolytes were done. Denies any dizziness lightheadedness. Nausea is better today. Review of Systems Constitutional: Reports as per HPI 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 History of Any Multi-Drug Resistant Organisms: None Reported Past Surgical History: Cholecystectomy, Hysterectomy Additional Past Surgical History / Comment(s): uterine cancer, cataract surgery Past Anesthesia/Blood Transfusion Reactions: Postoperative Nausea & Vomiting (P ONV) Past Psychological History: Anxiety Smoking Status: Never smoker Past Alcohol Use History: None Reported Past Drug Use History: None Reported - Past Family History Mother Family Medical History: No Reported History Medications and Allergies Home Medications Medication Instructions Recorded Confirmed Type ALPRAZolam [Xanax] 0.5 mg PO TID PRN 08/03/17 05/08/19 History Brimonidine Tartrate/Timolol 1 drop RIGHT EYE BID 08/03/17 05/08/19 History [Combigan 0.2%-0.5% Eye Drops] Cholecalciferol [Vitamin D3 (25 1,000 unit PO DAILY 08/03/17 05/08/19 History Mcg = 1000 Iu)] Levothyroxine Sodium [Synthroid] 88 mcg PO DAILY 08/03/17 05/08/19 History Simvastatin [Zocor] 20 mg PO HS 08/03/17 05/08/19 History Travoprost [Travatan Z 0.004%] 1 drop BOTH EYES HS 08/03/17 05/08/19 History amLODIPine [Norvasc] 10 mg PO HS 08/03/17 05/08/19 History Melatonin 5 mg PO HS 06/05/18 05/08/19 History Multivitamins, Thera [Multivitamin 1 tab PO DAILY 06/05/18 05/08/19 History (formulary)] Biotin 1,000 Mcg 1,000 mcg PO DAILY 06/15/18 05/08/19 History Ondansetron [Zofran] 4 mg PO Q8HR PRN #30 tab 04/26/19 05/08/19 Rx Lisinopril [Zestril] 20 mg PO DAILY #30 tab 05/03/19 05/08/19 Rx LORazepam [Ativan] 1 mg PO TID PRN 05/08/19 05/08/19 History Allergies Allergy/AdvReac Type Severity Reaction Status Date / Time No Known Allergies Allergy Verified 05/08/19 08:52 Physical Exam Vitals: Vital Signs Temp Pulse Pulse Resp BP BP Pulse Ox 05/08/19 11:56 98.8 F 72 16 164/75 96 05/08/19 09:56 98.8 F 69 20 168/79 96 05/08/19 09:22 97.9 F 05/08/19 09:02 68 160/79 05/08/19 08:59 71 16 165/83 98 05/08/19 08:05 78 18 188/89 98 05/08/19 06:27 98.3 F 69 18 166/85 95 Intake and Output 05/07/19 05/08/19 05/08/19 22:59 06:59 14:59 Intake Total 1218 Output Total 400 Balance 818 Intake: IV 1100 Magnesium Sulfate-D5w Pmx 100 1 gm In Dextrose/Water 1 100ml.bag @ 100 mls/hr IVPB ONCE ONE Rx#: [id number] Sodium Chloride 0.9% 1, 1000 000 ml @ 999 mls/hr IV . Q1H1M ONE Rx#:[id number] Oral 118 Output: Urine 400 Other: Weight 63.503 kg 63.503 kg No acute distress S1-S2 heard Lungs clear No edema Results - Lab Results Most recent lab results Calcium 9.2 mg/dL (8.4-10.2) 05/08/19 06:46 Magnesium 1.2 mg/dL (1.6-2.3) L 05/08/19 06:46 05/08/19 06:46 05/08/19 06:46 Assessment and Plan Assessment: #1 acute on chronic hypotonic hyponatremia suspect hypovolemia. SIADH cannot be ruled out. #2 normal renal function #3 essential hypertension #4 anxiety disorder Plan: #1 continue IV fluids. Repeat BMP every 6 of early. With low uric acid favors SIADH. #2 if serum sodium drops, stop IV fluids and start fluid restriction. #3 check urine electrolytes. #4 restart home antihypertensive regimen.
--- NOTE | 2019-05-08 14:03 | XR ---
EXAMINATION TYPE: XR chest 2V DATE OF EXAM: 05/08/2019 HISTORY: hypoatremia,r/o masses. REFERENCE: Previous study dated 03/14/2019. FINDINGS: The lungs remain clear. Pleural spaces are clear. Heart size upper limits of normal in size . IMPRESSION: NO ACUTE CARDIOPULMONARY ABNORMALITY.
--- NOTE | 2019-05-08 14:25 | P.HPIM ---
History of Present Illness H&P Date: 05/08/19 Chief Complaint: Persistent nausea The patient is a 73-year-old female with a past medical history of anxiety disorder, hypothyroidism, essential hypertension who presented to the ER via private vehicle with chief complaint of persistent nausea. Apparently the patient has been having episodes of persistent nausea since March of this year, she denies any abdominal pain, denies any GERD symptoms of pyrosis bloating or belching, she denies diarrhea or dark melanotic stools or bright red blood per rectum, she does complain of constipation for which he takes milk of magnesia. The patient also complains of increased weakness and lightheadedness, denies any episodes of confusion focal weakness or slurred speech. The patient does report decreased oral intake since March. She reports her last colonoscopy was approximately 6 years ago and at that time she was cleared for another 10 year follow-up. The patient reported that she follow up with her PCP and was switched from Xanax to Ativan along with initiation of Lexapro for management of her anxiety the p atient reported taking 1 dose of Lexapro. Patient also reports she was started on Prevacid recently The patient was recently admitted here for hyponatremia at that time was attributed to ongoing use of diuretics with hydrochlorothiazide to treat her high blood pressure.On admission the patient was noted to have a serum sodium level of 124, chloride of 88, glucose 117, urine osmolality 249, uric acid 2.3 magnesium 1.2. 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 History of Any Multi-Drug Resistant Organisms: None Reported Past Surgical History: Cholecystectomy, Hysterectomy Additional Past Surgical History / Comment(s): uterine cancer, cataract surgery Past Anesthesia/Blood Transfusion Reactions: Postoperative Nausea & Vomiting (PONV) Past Psychological History: Anxiety Smoking Status: Never smoker Past Alcohol Use History: None Reported Past Drug Use History: None Reported - Past Family History Mother Family Medical History: No Reported History Medications and Allergies Home Medications Medication Instructions Recorded Confirmed Type ALPRAZolam [Xanax] 0.5 mg PO TID PRN 08/03/17 05/08/19 History Brimonidine Tartrate/Timolol 1 drop RIGHT EYE BID 08/03/17 05/08/19 History [Combigan 0.2%-0.5% Eye Drops] Cholecalciferol [Vitamin D3 (25 1,000 unit PO DAILY 08/03/17 05/08/19 History Mcg = 1000 Iu)] Levothyroxine Sodium [Synthroid] 88 mcg PO DAILY 08/03/17 05/08/19 History Simvastatin [Zocor] 20 mg PO HS 08/03/17 05/08/19 History Travoprost [Travatan Z 0.004%] 1 drop BOTH EYES HS 08/03/17 05/08/19 History amLODIPine [Norvasc] 10 mg PO HS 08/03/17 05/08/19 History Melatonin 5 mg PO HS 06/05/18 05/08/19 History Multivitamins, Thera [Multivitamin 1 tab PO DAILY 06/05/18 05/08/19 History (formulary)] Biotin 1,000 Mcg 1,000 mcg PO DAILY 06/15/18 05/08/19 History Ondansetron [Zofran] 4 mg PO Q8HR PRN #30 tab 04/26/19 05/08/19 Rx Lisinopril [Zestril] 20 mg PO DAILY #30 tab 05/03/19 05/08/19 Rx LORazepam [Ativan] 1 mg PO TID PRN 05/08/19 05/08/19 History Allergies Allergy/AdvReac Type Severity Reaction Status Date / Time No Known Allergies Allergy Verified 05/08/19 08:52 Physical Exam Vitals: Vital Signs Temp Pulse Pulse Resp BP BP Pulse Ox 05/08/19 11:56 98.8 F 72 16 164/75 96 05/08/19 10:00 72 16 05/08/19 09:56 98.8 F 69 20 168/79 96 05/08/19 09:22 97.9 F 05/08/19 09:02 68 160/79 05/08/19 08:59 71 16 165/83 98 05/08/19 08:05 78 18 188/89 98 05/08/19 06:27 98.3 F 69 18 166/85 95 Intake and Output 05/07/19 05/08/19 05/08/19 22:59 06:59 14:59 Intake Total 1218 Output Total 400 Balance 818 Intake: IV 1100 Magnesium Sulfate-D5w Pmx 100 1 gm In Dextrose/Water 1 100ml.bag @ 100 mls/hr IVPB ONCE ONE Rx#: [id number] Sodium Chloride 0.9% 1, 1000 000 ml @ 999 mls/hr IV . Q1H1M ONE Rx#:[id number] Oral 118 Output: Urine 400 Other: Voiding Method Toilet Weight 63.503 kg 63.503 kg Constitutional: No acute distress, conversant, pleasant Eyes: Anicteric sclerae, moist conjunctiva, no lid-lag, PERRLA ENMT: NC/AT,Oropharynx clear, no erythema, exudates Neck:Supple, FROM, no masses, or JVD, No carotid bruits; No thyromegaly Lungs: Clear to auscultation, Clear to percussion, Normal respiratory effort, no accessory muscle use Cardiovascular: Heart regular in rate and rhythm, No murmurs, gallops, or rubs no peripheral edema Abdominal: Soft Nontender, nom distended, no guarding, no rebound or rigidity, Normoactive bowel sounds No hepatomegaly, No splenomegaly, No palpable mass No abdominal wall hernia noted Skin: Normal temperature, tone, texture, turgor, No induration No subcutaneous nodules, No rash, lesions, No ulcers Extremities:No digital cyanosis No clubbing, Pedal pulses intact and symmetrical Radial pulses intact and symmetrical Normal gait and station, No calf tenderness Psychiatric: Alert and oriented to person, place and time, Appropriate affect Intact judgement Neuro: Muscles Strength 5/5 in all 4 extremities, Sensation to light touch grossly present throughout, Cranial nerves II-XII grossly intact. No focal sensory deficits Results CBC & Chem 7: 05/08/19 06:46 05/08/19 06:46 Labs: Abnormal Lab Results - Last 24 Hours (Table) 05/08/19 05/08/19 Range/Units 06:46 06:46 Sodium 124 L (137-145) mmol/L Chloride 88 L (98-107) mmol/L Glucose 117 H (74-99) mg/dL Osmolality 249 L* (280-301) mosm/kg Uric Acid 2.3 L (3.7-7.4) mg/dL Magnesium 1.2 L (1.6-2.3) mg/dL Thrombosis Risk Factor Assmnt - Choose All That Apply Each Risk Factor Represents 2 Points: Age 61-74 years Other congenital or acquired thrombophilia - If yes, enter type in comment: No Thrombosis Risk Factor Assessment Total Risk Factor Score: 2 Thrombosis Risk Factor Assessment Level: Low Risk Assessment and Plan (1) Hypo-osmolar hyponatremia Current Visit: Yes Status: Acute Code(s): E87.1 - HYPO-OSMOLALITY AND HYPONATREMIA SNOMED Code(s): 747348450 (2) Nausea Current Visit: Yes Status: Acute Code(s): R11.0 - NAUSEA SNOMED Code(s): 923563132 (3) Hypomagnesemia Current Visit: Yes Status: Acute Code(s): E83.42 - HYPOMAGNESEMIA SNOMED Code(s): 447061409 (4) Hypertension Current Visit: No Status: Acute Code(s): I10 - ESSENTIAL (PRIMARY) HYPERTEN LJ SNOMED Code(s): 93356688 (5) Hypothyroidism Current Visit: No Status: Acute Code(s): E03.9 - HYPOTHYROIDISM, UNSPECIFIED SNOMED Code(s): 27089369 Plan: The patient is admitted anticipated greater than 2 midnight stay with hyperosmolar hyponatremia likely of multifactorial etiology differential includes poor by mouth intake versus SIADH, ict customer support officer been consulted to see the patient urine studies electrolytes have been ordered. Patient has persistent nausea will order KUB and consult GI for further recommendations continue symptomatic management with antiemetics. We'll initiate MiraLAX for the patient's constipation. We'll replace her magnesium and continue to follow her clinical course. CODE STATUS: CPR/DO NOT INTUBATE Discussed plan of care with: Patient Anticipated discharge: 1-[address]; home Prophylaxis SCDs and heparin
[2019-05-08] MEDS: ONDANSETRON 4 MG TAB PO PRN (15:40)
[2019-05-08] MEDS: MAGNESIUM SULFATE-D5W PMX 1 GM in DEXTROSE/WATER 1 100ML.BAG IVPB SCH ×3 (15:40→18:33)
[2019-05-08] MEDS: HEPARIN SODIUM,PORCINE 5,000 UNIT/ML 1 ML VIAL SQ SCH ×2 (15:40→23:10)
[2019-05-08] MEDS: LORazepam 1 MG TAB PO PRN ×2 (15:40→21:10)
[2019-05-08 16:24] LABS: Calcium 8.6 mg/dL (8.4-10.2); Magnesium 1.6 mg/dL (1.6-2.3); Potassium 3.8 mmol/L (3.5-5.1)
--- NOTE | 2019-05-08 18:33 | XR ---
EXAMINATION TYPE: XR KUB DATE OF EXAM: 05/08/2019 COMPARISON: 04/30/2019 INDICATION: Nausea TECHNIQUE: Single view abdomen supine view FINDINGS: There is a normal bowel gas pattern. Mild fecal debris is through the descending colon. Psoas margins are normal. No organomegaly is present. IMPRESSION: 1. Nonspecific abdomen.
[2019-05-08] MEDS: amLODIPine 10 MG TAB PO SCH (20:59)
[2019-05-08] MEDS: ATORVASTATIN 10 MG TAB PO SCH (20:59)
[2019-05-08] MEDS: BRIMONIDINE TARTRATE 0.2% DROPS 5 ML BTL RIGHT EYE SCH (21:00)
[2019-05-08] MEDS: LATANOPROST 0.005% OPHTH DROPS 2.5 ML BTL BOTH EYES SCH (21:01)
[2019-05-08] MEDS: TIMOLOL 0.5% OPHTH DROPS 5 ML BTL RIGHT EYE SCH (21:01)
[2019-05-08 22:24] VITALS: RESP 18
[2019-05-09] MEDS: ONDANSETRON 4 MG TAB PO PRN (03:43)
[2019-05-09 06:24] LABS: African American GFR (CKD) >90 (>60 ml/min/1.73 sqM); Anion Gap 8 mmol/L; Blood Urea Nitrogen 5 mg/dL (7-17); Calcium 8.8 mg/dL (8.4-10.2); Carbon Dioxide 25 mmol/L (22-30); Chloride 101 mmol/L (98-107); Glucose 100 mg/dL (74-99); Magnesium 2.1 mg/dL (1.6-2.3); Potassium 3.9 mmol/L (3.5-5.1); Sodium 134 mmol/L (137-145); Uric Acid 2.4 mg/dL (3.7-7.4)
[2019-05-09] MEDS: SODIUM CHLORIDE 0.9% 1,000 ML IV SCH (06:40)
[2019-05-09] MEDS: LEVOTHYROXINE 88 MCG TAB PO SCH (06:40)
[2019-05-09] MEDS: LORazepam 1 MG TAB PO PRN ×3 (06:40→23:13)
[2019-05-09] MEDS: LISINOPRIL 20 MG TAB PO SCH (08:20)
[2019-05-09] MEDS: HEPARIN SODIUM,PORCINE 5,000 UNIT/ML 1 ML VIAL SQ SCH ×3 (08:20→23:13)
[2019-05-09] MEDS: MULTIVITAMINS, THERA 1 EACH TAB PO SCH (08:20)
[2019-05-09] MEDS: CHOLECALCIFEROL 1,000 UNIT TAB PO SCH (08:20)
[2019-05-09] MEDS: TIMOLOL 0.5% OPHTH DROPS 5 ML BTL RIGHT EYE SCH ×2 (08:21→19:56)
[2019-05-09] MEDS: BRIMONIDINE TARTRATE 0.2% DROPS 5 ML BTL RIGHT EYE SCH ×2 (08:21→19:56)
--- NOTE | 2019-05-09 11:16 | P.PN ---
Subjective Progress Note Date: 05/09/19 Seen and examined for the follow-up of hyponatremia. Sodium better. Still has nausea. No nausea vomiting or diarrhea. Tolerating diet. Objective - Vital Signs Vital signs: Vital Signs Temp 98.1 F 05/09/19 08:00 Pulse 82 05/09/19 08:00 Resp 18 05/09/19 08:00 BP 188/84 05/09/19 08:00 Pulse Ox 97 05/09/19 08:00 Intake & Output 05/08/19 05/09/19 05/09/19 18:59 06:59 18:59 Intake Total 2304 118 Output Total 1100 1400 Balance 1204 -1400 118 Weight 63.503 kg 64 kg Intake: IV 1950 Magnesium Sulfate-D5w Pmx 100 1 gm In Dextrose/Water 1 100ml.bag @ 100 mls/hr IVPB ONCE ONE Rx#: [id number] Magnesium Sulfate-D5w Pmx 100 1 gm In Dextrose/Water 1 100ml.bag @ 100 mls/hr IVPB Q1H [facility] Rx#: [id number] Sodium Chloride 0.9% 1, 750 000 ml @ 125 mls/hr IV . Q8H [facility] Rx#:[id number] Sodium Chloride 0.9% 1, 1000 000 ml @ 999 mls/hr IV . Q1H1M ONE Rx#:[id number] Oral 354 118 Output: Urine 1100 1400 Other: Voiding Method Toilet Toilet # Voids 1 1 1 - Exam No acute distress S1-S2 heard Lungs clear No edema - Labs CBC & Chem 7: 05/08/19 06:46 05/09/19 06:00 Labs: Abnormal Lab Results - Last 24 Hours (Table) 05/08/19 05/09/19 Range/Units 15:14 06:00 Sodium 128 L 134 L (137-145) mmol/L Chloride 95 L (98-107) mmol/L BUN 5 L 5 L (7-17) mg/dL Glucose 105 H 100 H (74-99) mg/dL Uric Acid 2.4 L (3.7-7.4) mg/dL Assessment and Plan Assessment: #1 acute on chronic hypotonic hyponatremia suspect hypovolemia. -Low uric acid, high urine sodium favors SIADH from persistent nausea and free water intake. #2 normal renal function #3 essential hypertension #4 anxiety disorder Plan: #1 sodium better. Stop IV fluids. #2 continue antihypertensive medications. #3 monitor sodium closely. Advised to avoid free water intake when she she has persistent nausea as it can cause hyponatremia.
--- NOTE | 2019-05-09 11:47 | P.PN ---
Subjective Progress Note Date: 05/09/19 Patient seen and examined and follow-up, feeling much better today not as weak as been up and ambulatory without difficulty, had bowel movement overnight, reporting nausea persisting. Denies any pain, serum sodium 134 today. Continues on IV fluids. No acute events overnight Objective - Vital Signs Vital signs: Vital Signs Temp 98.1 F 05/09/19 08:00 Pulse 82 05/09/19 08:00 Resp 18 05/09/19 08:00 BP 188/84 05/09/19 08:00 Pulse Ox 97 05/09/19 08:00 Intake & Output 05/08/19 05/09/19 05/09/19 18:59 06:59 18:59 Intake Total 2304 118 Output Total 1100 1400 Balance 1204 -1400 118 Weight 63.503 kg 64 kg Intake: IV 1950 Magnesium Sulfate-D5w Pmx 100 1 gm In Dextrose/Water 1 100ml.bag @ 100 mls/hr IVPB ONCE ONE Rx#: [id number] Magnesium Sulfate-D5w Pmx 100 1 gm In Dextrose/Water 1 100ml.bag @ 100 mls/hr IVPB Q1H [facility] Rx#: [id number] Sodium Chloride 0.9% 1, 750 000 ml @ 125 mls/hr IV . Q8H [facility] Rx#:[id number] Sodium Chloride 0.9% 1, 1000 000 ml @ 999 mls/hr IV . Q1H1M [facility] Rx#:[id number] Oral 354 118 Output: Urine 1100 1400 Other: Voiding Method Toilet Toilet # Voids 1 1 1 - Exam Constitutional: No acute distress, conversant, pleasant Eyes: Anicteric sclerae, moist conjunctiva, no lid-lag, PERRLA ENMT: NC/AT,Oropharynx clear, no erythema, exudates Neck:Supple, FROM, no masses, or JVD, No carotid bruits; No thyromegaly Lungs: Clear to auscultation, Clear to percussion, Normal respiratory effort, no accessory muscle use Cardiovascular: Heart regular in rate and rhythm, No murmurs, gallops, or rubs no peripheral edema Abdominal: Soft Nontender, nom distended, no guarding, no rebound or rigidity, Normoactive bowel sounds No hepatomegaly, No splenomegaly, No palpable mass No abdominal wall hernia noted Skin: Normal temperature, tone, texture, turgor, No induration No subcutaneous nodules, No rash, lesions, No ulcers Extremities:No digital cyanosis No clubbing, Pedal pulses intact and symmetrical Radial pulses intact and symmetrical Normal gait and station, No calf tenderness Psychiatric: Alert and oriented to person, place and time, Appropriate affect Intact judgement Neuro: Muscles Strength 5/5 in all 4 extremities, Sensation to light touch grossly present throughout, Cranial nerves II-XII grossly intact. No focal sensory deficits - Labs CBC & Chem 7: 05/08/19 06:46 05/09/19 06:00 Labs: Abnormal Lab Results - Last 24 Hours (Table) 05/08/19 05/09/19 Range/Units 15:14 06:00 Sodium 128 L 134 L (137-145) mmol/L Chloride 95 L (98-107) mmol/L BUN 5 L 5 L (7-17) mg/dL Glucose 105 H 100 H (74-99) mg/dL Uric Acid 2.4 L (3.7-7.4) mg/dL Assessment and Plan (1) Hypo-osmolar hyponatremia Narrative/Plan: * Likely secondary to SIADH superimposed on poor oral intake and drinking excessive amounts of water * Serum sodium corrected we'll stop IV fluids * Appreciate nephrology recommendations Current Visit: Yes Status: Resolved Code(s): E87.1 - HYPO-OSMOLALITY AND HYPONATREMIA SNOMED Code(s): 641572369 (2) Nausea Narrative/Plan: * Nausea persisting for several months without any associated pain * Continue supportive care with antiemetics * GI consult to evaluate for EGD Current Visit: Yes Status: Chronic Code(s): R11.0 - NAUSEA SNOMED Code(s): 077330890 (3) Hypomagnesemia Narrative/Plan: * Resolved after replacement Current Visit: Yes Status: Resolved Code(s): E83.42 - HYPOMAGNESEMIA SNOMED Code(s): 632763493 (4) Hypertension Narrative/Plan: * Blood pressure elevated this morning, will recheck blood pressure after am medication * Continue current regimen Current Visit: No Status: Chronic Code(s): I10 - ESSENTIAL (PRIMARY) HYPERTENSION SNOMED Code(s): 90646150 (5) Hypothyroidism Narrative/Plan: * Stable continue current dosing of Synthroid Current Visit: No Status: Chronic Code(s): E03.9 - HYPOTHYROIDISM, UNSPECIFIED SNOMED Code(s): 81509872 (6) Constipation Narrative/Plan: * Initiate MiraLAX therapy Current Visit: Yes Status: Acute Code(s): K59.00 - CONSTIPATION, UNSPECIFIED SNOMED Code(s): 94623303 Plan: Anticipated discharge 1-2 days
--- NOTE | 2019-05-09 14:29 | CONS ---
CONSULTATION DATE OF SERVICE: May 09. REASON FOR CONSULTATION: Epigastric pain, severe nausea. HISTORY OF PRESENT ILLNESS: The patient is a 73-year-old pleasant white female who was admitted to the hospital with persistent nausea for the last 6-8 weeks duration. The patient states that she has history of severe anxiety disorder and over the last 2 months has been battling with anxiety. She has been taking Xanax on regular basis, but recently was told by her PCP to cut down Xanax which she was trying to do but developed severe anxiety, panic disorder about a week ago, requiring hospitalization for 2 or 3 days. She thought she was settling down and she went to see on an outpatient basis and was started on Prilosec but after she took 2 pills she felt even more nauseated and hence stopped the medication. However, yesterday, she had such intense symptoms to the point that she became extremely weak, tired, fatigued, and also felt lightheaded and hence came back to the emergency room and subsequently admitted to the hospital for further evaluation. She does complain of some epigastric discomfort but no actual pain. She reports no emesis. She does have some dry heaves on and off. No prior history of peptic ulcer disease or recent NSAID use. Recently, she was also started on Lexapro, which she took 1 dose and was not feeling any better in regard to her anxiety. During this hospitalization, she was noted to have hyponatremia, which is being corrected. PAST MEDICAL HISTORY: Significant for GERD, anxiety, depression, hypertension, hyperlipidemia. PAST SURGICAL HISTORY: Cholecystectomy, hysterectomy, cataract surgery. MEDICATIONS: Xanax, timolol, vitamin D3, simvastatin, Synthroid, Norvasc, melatonin, multivitamin, biotin, Zofran, Zestril, Ativan. ALLERGIES: None. SOCIAL HISTORY: No smoking. No alcohol use. FAMILY HISTORY: Unremarkable. REVIEW OF SYSTEMS: Cardiopulmonary: She denies any chest pain, shortness of breath. GENITOURINARY: No dysuria or hematuria. MUSCULOSKELETAL: Unremarkable. SKIN unremarkable. ENDOCRINE unremarkable. PSYCHIATRIC: Severe anxiety and depression. ENT/VISION: Unremarkable. CONSTITUTIONAL: Weight loss of about 5 pounds. No fever, chills, night sweats. ENDOCRINE unremarkable. HEMATOLOGY unremarkable. PHYSICAL EXAMINATION: She appears comfortable. No apparent distress. VITAL SIGNS: Stable. Blood pressure 98/50, pulse is 82, temperature 98.1. HEENT examination unremarkable. Conjunctivae pink. Sclerae anicteric. Oral cavity no lesions. NECK: No JVD or lymph node enlargement. CHEST: Clear to auscultation. HEART: Regular rate and rhythm. ABDOMEN: Soft. Bowel sounds are positive. No organomegaly. EXTREMITIES: No pedal edema. SKIN: No rashes. NEUROLOGIC: Alert and oriented x3. No focal deficits. LABS: Done at the time of admission to the hospital: CBC is normal. Sodium 134, potassium 3.9, CO2 101, platelets normal. BUN and creatinine normal. Sodium was 124 at the time of admission to the hospital 2 days ago. ALT, AST, T-bilirubin, alkaline phosphatase normal. Amylase and lipase are normal. IMPRESSION: 1. Chronic persistent nausea for the last 6 weeks duration. She has some vague epigastric discomfort, but no emesis. She has tried Prilosec on outpatient basis with no help. Has been on Zofran since being in the hospital with some improvement in her symptoms. Rule out upper gastrointestinal pathology and most likely her symptoms are related to underlying ongoing anxiety. 2. History of anxiety depression/panic disorder. 3. Electrolyte abnormalities with hyponatremia, currently being followed by Nephrology and sodium is better today at 134. RECOMMENDATIONS: 1. Continue with antiemetics as needed. 2. Hold off on PPIs as she did not tolerate this on an outpatient basis. 3. We will proceed with an upper endoscopy tomorrow. I discussed with the patient risks, benefits and complications of procedure and she is agreeable to it. In the meantime, we will continue with symptomatic and supportive care and correct her electrolyte abnormalities and we will follow her closely during the hospital stay. Thank you for this consultation. MMODL / IJN: [id number] /
[2019-05-09] MEDS: POLYETHYLENE GLYCOL 3350 17 GM POWD.PACK PO SCH (15:44)
[2019-05-09] MEDS: amLODIPine 10 MG TAB PO SCH (15:47)
[2019-05-09] MEDS: ATORVASTATIN 10 MG TAB PO SCH (19:55)
[2019-05-09] MEDS: LATANOPROST 0.005% OPHTH DROPS 2.5 ML BTL BOTH EYES SCH (19:57)
[2019-05-10 06:30] LABS: African American GFR (CKD) >90 (>60 ml/min/1.73 sqM); Anion Gap 8 mmol/L; Blood Urea Nitrogen 10 mg/dL (7-17); Calcium 9.1 mg/dL (8.4-10.2); Carbon Dioxide 26 mmol/L (22-30); Chloride 101 mmol/L (98-107); Glucose 89 mg/dL (74-99); Potassium 4.1 mmol/L (3.5-5.1); Sodium 135 mmol/L (137-145)
[2019-05-10] MEDS: LEVOTHYROXINE 88 MCG TAB PO SCH (07:02)
[2019-05-10] MEDS ORDERED: LORazepam 2 MG/ML INJ IV STA (09:02)
[2019-05-10] MEDS ORDERED: LORazepam 2 MG/ML INJ IV PRN (09:02)
[2019-05-10] MEDS: MULTIVITAMINS, THERA 1 EACH TAB PO SCH (09:37)
[2019-05-10] MEDS: CHOLECALCIFEROL 1,000 UNIT TAB PO SCH (09:37)
[2019-05-10] MEDS: LISINOPRIL 20 MG TAB PO SCH (09:37)
[2019-05-10] MEDS: TIMOLOL 0.5% OPHTH DROPS 5 ML BTL RIGHT EYE SCH (09:38)
[2019-05-10] MEDS: BRIMONIDINE TARTRATE 0.2% DROPS 5 ML BTL RIGHT EYE SCH (09:38)
[2019-05-10] MEDS: HEPARIN SODIUM,PORCINE 5,000 UNIT/ML 1 ML VIAL SQ SCH (09:40)
--- NOTE | 2019-05-10 09:45 | P.DS ---
Providers Date of admission: 05/08/19 08:56 Expected date of discharge: 05/10/19 Attending physician: Terrence Haas MD Consults: 05/08/19 09:53 Consult Physician Urgent Consulting Provider: Guerline Nye Consult Reason/Comments: Hypotonic hypovolemia Do you want consulting provider notified?: Yes 05/08/19 14:25 Consult Physician Routine Consulting Provider: Reza Nicholson Consult Reason/Comments: persistent nausea Do you want consulting provider notified?: Yes Primary care physician: Marianne Celis MD Hospital Course: Is a 73-year-old female with PMH of anxiety, hypothyroidism, essential hypertension, hemangioma who presented to the ED for persistent nausea. Her nausea has persisted since March 2019. Her last colonoscopy was reported to be 6 years ago and at that time she was cleared for 10 year follow-up. She is been following her PCP for management of anxiety. She has been on Xanax over the past 6 years and was recently switched to Ativan with initiation of Lexapro, for which she had only taken 1 dose. In the ED, patient was noted to be hyponatremic which is attribute it to ongoing use of her diuretic with hydrochlorothiazide. Her sodium was 124. Her hyponatremia was thought to be due to hyperosmolar hyponatremia, thought to be from poor oral intake versus SIADH. Chest x-ray showed no acute process. KUB showed nonspecific abdomen. Nephrology was consulted and urine electrolytes and osmolality along with uric acid was ordered. Serum osmolality was 249. Uric acid was 2.3. TSH was within normal limits. Cortisol was within normal limits. Random urine sodium was 54. Patient was initially hydrated with normal saline and nephrology recommended discontinuation. Her sodium progressively improved from 124-135 at discharge. Gastroenterology was consulted for her persistent nausea. Patient was placed nothing by mouth for upper endoscopy on 05/10/2019. Patient was seen and examined around 9:30 on 05/10/2019. No acute events over night. Patient reports intense feelings of anxiousness that had been previously well controlled with Xanax. Her PCP has recently switched her to Ativan in order to wean her off along with Lexapro. She is only taken 1 dose of Lexapro. She denies any chest pain, shortness of breath or palpitations. No current nausea or vomiting. No fever or chills. General: [non toxic], [appears anxious, tremulous], [appears at stated age] Derm: [warm], [dry] Head: [atraumatic], [normocephalic], [hemangioma over the right lower lip and right side of the face] Eyes: [EOMI], [no lid lag], [anicteric sclera] Mouth: [no lip lesion], [mucus membranes moist] Cardiovascular: [S1S2 reg], [no murmur], [positive DP pulse bilateral], Lungs: [CTA bilateral], [no rhonchi, no rales] , [no accessory muscle use] Abdominal: [soft], [ nontender to palpation], [no guarding], [no appreciable organomegaly] Ext: [no gross muscle atrophy], [no edema], [no contractures] Neuro: [no focal neuro deficits] Psych: [Alert], [oriented], [appropriate affect] Assessment and Plan Acute on chronic hyperosmolar hyponatremia Persistent nausea due to severe anxiety Hypertension Hypothyroidism Resolved: Constipation, hypomagnesemia Sodium 134 this morning. Likely from excess water intake from persistent nausea. HCTZ discontinued previously. Plans: Stop IVF as sodium has basically normalized. Advised to avoid free water intake especially for persistent nausea. Follow nephrology recommendations. Likely due to severe anxiety. Unable to tolerate PPI. Plans: Ativan 1 mg IV 1 time dose now. Ativan as needed for symptoms of anxiety. Discussed the need for Lexapro or SSRI to decrease the dependency on benzodiazepines. Needs adequate follow-up in the outpatient setting. Will follow results of EGD. Follow GI recommendations. BP 156/73. Plans: Continue amlodipine. Monitor vitals, adjust medications as necessary. Plans: Continue Synthroid. [Plans for EGD today. DC later on this afternoon if there are no complications with EGD. Needs follow-up for anxiety.] Pertinent Studies: Chest x-ray, KUB Patient Condition at Discharge: Stable Plan - Discharge Summary Discharge Rx Participant: No New Discharge Prescriptions: Continue amLODIPine [Norvasc] 10 mg PO HS Simvastatin [Zocor] 20 mg PO HS Cholecalciferol [Vitamin D3 (25 Mcg = 1000 Iu)] 1,000 unit PO DAILY Levothyroxine Sodium [Synthroid] 88 mcg PO DAILY Travoprost [Travatan Z 0.004%] 1 drop BOTH EYES HS Brimonidine Tartrate/Timolol [Combigan 0.2%-0.5% Eye Drops] 1 drop RIGHT EYE BID Multivitamins, Thera [Multivitamin (formulary)] 1 tab PO DAILY Melatonin 5 mg PO HS Biotin 1,000 Mcg 1,000 mcg PO DAILY Ondansetron [Zofran] 4 mg PO Q8HR PRN #30 tab PRN Reason: Nausea And Vomiting Lisinopril [Zestril] 20 mg PO DAILY #30 tab LORazepam [Ativan] 1 mg PO TID PRN PRN Reason: Anxiety Discontinued ALPRAZolam [Xanax] 0.5 mg PO TID PRN PRN Reason: Anxiety Discharge Medication List Brimonidine Tartrate/Timolol [Combigan 0.2%-0.5% Eye Drops] 1 drop RIGHT EYE BID 08/03/17 [History] Cholecalciferol [Vitamin D3 (25 Mcg = 1000 Iu)] 1,000 unit PO DAILY 08/03/17 [History] Levothyroxine Sodium [Synthroid] 88 mcg PO DAILY 08/03/17 [History] Simvastatin [Zocor] 20 mg PO HS 08/03/17 [History] Travoprost [Travatan Z 0.004%] 1 drop BOTH EYES HS 08/03/17 [History] amLODIPine [Norvasc] 10 mg PO HS 08/03/17 [History] Melatonin 5 mg PO HS 06/05/18 [History] Multivitamins, Thera [Multivitamin (formulary)] 1 tab PO DAILY 06/05/18 [History] Biotin 1,000 Mcg 1,000 mcg PO DAILY 06/15/18 [History] Ondansetron [Zofran] 4 mg PO Q8HR PRN #30 tab 04/26/19 [Rx] Lisinopril [Zestril] 20 mg PO DAILY #30 tab 05/03/19 [Rx] LORazepam [Ativan] 1 mg PO TID PRN 05/08/19 [History] Follow up Appointment(s)/Referral(s): Marianne Celis MD [Primary Care Provider] - 1-2 days Ambulatory/Diagnostic Orders: Basic Metabolic Panel [LAB.AMB] Time Frame: 3 Days, Location: None Selected Activity/Diet/Wound Care/Special Instructions: Diet: Water restriction, low-salt Follow-up PCP within 1-2 days of discharge. Obtain BMP within 3 days of discharge. Follow-up results with PCP. Take all medications as advised. Discharge Disposition: HOME SELF-CARE
[2019-05-10] MEDS: POLYETHYLENE GLYCOL 3350 17 GM POWD.PACK PO SCH (12:11)
[2019-05-10 12:30] VITALS: BP 171/76; PULSE 73; TEMP 97.8
[2019-05-10] MEDS ORDERED: PROPOFOL 10 MG/ML 20 ML VIAL IV ONE (13:13)
[2019-05-10] MEDS ORDERED: LIDOCAINE 1% INJ 10MG/ML (20 ML MDV) ONE (13:13)
[2019-05-10] MEDS ORDERED: IV FLUID CONTINUATION 1,000 ML IV ONE (13:13)
--- NOTE | 2019-05-10 13:20 | P.PN ---
Subjective Patient is seen in follow-up for hyponatremia. Sodium level is up to 135 today. She is off all IV fluids. Scheduled for EGD today. No vomiting or diarrhea. Vital signs are stable. General: The patient appeared well nourished and normally developed. HEENT: Head exam is unremarkable. Neck is without jugular venous distension. LUNGS: Lungs are clear to auscultation and percussion. Breath sounds decreased. HEART: Rate and Rhythm are regular. First and second heart sounds normal. No murmurs, rubs or gallops. ABDOMEN: Abdominal exam reveals normal bowel sounds. Non-tender and non- distended. No evidence of peritonitis. EXTREMITITES: No clubbing, cyanosis, or edema. Objective - Vital Signs Vital signs: Vital Signs Temp 97.8 F 05/10/19 12:28 Pulse 73 05/10/19 12:28 Resp 18 05/10/19 12:28 BP 171/76 05/10/19 12:28 Pulse Ox 98 05/10/19 12:28 Intake & Output 05/09/19 05/10/19 05/10/19 18:59 06:59 18:59 Intake Total 358 Output Total 900 Balance 358 -900 Weight 64.1 kg Intake: Oral 358 Output: Urine 900 Other: Voiding Method Toilet Toilet # Voids 1 2 4 - Labs CBC & Chem 7: 05/08/19 06:46 05/10/19 05:37 Labs: Abnormal Lab Results - Last 24 Hours (Table) 05/10/19 Range/Units 05:37 Sodium 135 L (137-145) mmol/L Assessment and Plan Plan: Assessment: 1. Hypovolemic hyponatremia improved with IV hydration. High urine sodium and low uric acid is suggestive of SIADH which can be induced from nausea. Sodium level up to 135 today. 2. Benign hypertension. 3. Nausea with epigastric discomfort. Scheduled for EGD today. GI following. Plan: Remains off IV fluids. 1500 mL fluid restriction once diet initiated. Also encouraged to drink ensure.
--- NOTE | 2019-05-10 13:25 | P.PCN ---
Date of Procedure: 05/10/19 Procedure(s) Performed: BRIEF HISTORY: Patient is a 73-year-old, pleasant, white female, mid to the hospital because of chronic persistent nausea for the last 2 months duration. He has some dry heaves but no emesis. She denies any abdominal pain. She was treated with PPI as well as antiemetics with no help. She is hence scheduled for an upper endoscopy to evaluate further.. PROCEDURE PERFORMED: Esophagogastroduodenoscopy with biopsy. PREOPERATIVE DIAGNOSIS: Chronic persistent nausea of 2 months duration. IV sedation per anesthesia. PROCEDURE: After informed consent was obtained, the patient was brought into the endoscopy unit. IV sedation was administered by Anesthesia under continuous monitoring. Initially the Olympus GIF-140 video endoscope was inserted into the mouth. Esophagus intubated without any difficulty. It was gradually advanced into the stomach and duodenum and carefully examined. The bulb and the second part of the duodenum patchy areas of erythema consistent with duodenitis and biopsies were done from this area. The scope at this time was withdrawn to the stomach, adequately insufflated with air, and upon careful examination, mucosa of the antrum, had several scattered erosions consistent with gastritis and biopsies were done from this area. The body, cardia and the fundus appeared normal. The scope was then withdrawn into the esophagus. The GE junction was located at 39 cm from the incisors. The esophagus appeared normal. There were no erosions or ulcerations seen and the patient tolerated the procedure well. IMPRESSION: 1. Antral erosive gastritis but no evidence of peptic ulcer disease. 2. Mild duodenitis. RECOMMENDATIONS: The findings of this examination were discussed with the patient as well as a family. She was advised to follow with the biopsy results. She will continue with antiemetics as needed and advance diet as tolerated..
[2019-05-10] MEDS ORDERED: FAMOTIDINE 20 MG TAB PO SCH (21:00)
== END 2019-05-10 16:10 | disposition home or self-care (01) | DRG 645 ==
LOC: EC 06:25 → 3SCARD 08:56
PROVIDERS: ADMIT Internal Medicine; ATTEND Internal Medicine
PROC: 0DB78ZX Excision of Stomach, Pylorus, Via Natural or Artificial Opening Endoscopic, Diagnostic (ICD-10-PCS; 2019-05-10)
PROC: 0DB98ZX Excision of Duodenum, Via Natural or Artificial Opening Endoscopic, Diagnostic (ICD-10-PCS; principal; 2019-05-10 08:40)
DX: E22.2 Syndrome of inappropriate secretion of antidiuretic hormone (principal); E87.8 Other disorders of electrolyte and fluid balance, not elsewhere classified; E86.1 Hypovolemia; E83.42 Hypomagnesemia; E03.9 Hypothyroidism, unspecified; E78.5 Hyperlipidemia, unspecified; F41.0 Panic disorder [episodic paroxysmal anxiety]; H40.9 Unspecified glaucoma; I10 Essential (primary) hypertension; K21.9 Gastro-esophageal reflux disease without esophagitis; K29.60 Other gastritis without bleeding; K29.80 Duodenitis without bleeding; K59.00 Constipation, unspecified; D18.09 Hemangioma of other sites; R11.0 Nausea; F32.9 Major depressive disorder, single episode, unspecified; Z79.890 Hormone replacement therapy; Z79.899 Other long term (current) drug therapy; Z85.42 Personal history of malignant neoplasm of other parts of uterus; Z90.710 Acquired absence of both cervix and uterus; Z90.49 Acquired absence of other specified parts of digestive tract; Z98.49 Cataract extraction status, unspecified eye; Z96.1 Presence of intraocular lens
CPT/HCPCS: 36415; 43239; 71046; 74018; 80048; 80053; 81003; 82310; 82533; 83690; 83735; 83930; 83935; 84133; 84300; 84443; 84484; 84540; 84550; 84560; 85025; 88305; 93005; 96365; 96375; 99285

== ENCOUNTER → 2019-05-13 | Outpatient (CLI) | payer MEDICARE ==
[2019-05-14 01:57] LABS: African American GFR (CKD) 83.6 (60.0-200.0); Anion Gap 10.9 mmol/L (4.00-12.00); Calcium 9.6 mg/dL (8.7-10.3); Carbon Dioxide 25.1 mmol/L (21.6-31.8); Potassium 4.5 mmol/L (3.5-5.5)
== END | disposition home or self-care (01) ==
LOC: LABWHC1 13:26
PROVIDERS: ATTEND Family Medicine
DX: E87.1 Hypo-osmolality and hyponatremia (principal)
CPT/HCPCS: 36415; 80048

== ENCOUNTER 2019-05-15 07:45 | Emergency (ER) | payer MEDICARE ==
[2019-05-15 07:57] VITALS: RESP 16; TEMP 99.1
[2019-05-15] MEDS ORDERED: SODIUM CHLORIDE 0.9% 1,000 ML IV STA (07:57)
[2019-05-15] MEDS ORDERED: SODIUM CHLORIDE 0.9% 500 ML 500 ML IV STA (07:57)
[2019-05-15] MEDS ORDERED: ONDANSETRON 4 MG/2 ML VIAL IVP STA (07:58)
[2019-05-15] MEDS ORDERED: diphenhydrAMINE 50 MG/ML 1 ML VIAL IVP STA (07:58)
[2019-05-15 08:33] LABS: Appearance,Urine Clear (Clear); Bilirubin,Urine Negative (Negative); Blood,Urine Negative (Negative); Color,Urine Yellow; Glucose,Urine (UA) Negative (Negative); Ketones,Urine 2+ (Negative); Leukocyte Esterase,Urine Small (Negative); Mucus,Urine Rare /hpf; Nitrite,Urine Negative (Negative); PH, Urine 6.5 (5.0-8.0); Protein,Urine Negative (Negative); RBC,Urine 1 /hpf (0-5); Specific Gravity,Urine 1.014 (1.001-1.035); Squamous Epithelial Cell,Urine <1 /hpf (0-4); Urobilinogen,Urine <2.0 mg/dL (<2.0)
[2019-05-15 08:39] LABS: Basophils % (A) 0 %; Eosinophils # (A) 0.2 k/uL (0-0.7); Eosinophils % (A) 3 %; HCT 36.1 % (34.0-46.0); HGB 12.6 gm/dL (11.4-16.0); Lymphocytes # (A) 1.1 k/uL (1.0-4.8); Lymphocytes % (A) 19 %; MCH 30.5 pg (25.0-35.0); MCHC 34.8 g/dL (31.0-37.0); MCV 87.5 fL (80.0-100.0); Monocytes # (A) 0.5 k/uL (0-1.0); Monocytes % (A) 8 %; Neutrophils % (A) 68 %; Platelet Count 324 k/uL (150-450); RBC 4.12 m/uL (3.80-5.40); RDW 12.2 % (11.5-15.5); WBC 5.8 k/uL (3.8-10.6)
[2019-05-15 08:55] LABS: ALT 25 U/L (9-52); AST 21 U/L (14-36); African American GFR (CKD) >90 (>60 ml/min/1.73 sqM); Albumin 4.2 g/dL (3.5-5.0); Alkaline Phosphatase 51 U/L (38-126); Amylase <30 U/L (30-110); Anion Gap 12 mmol/L; Blood Urea Nitrogen 12 mg/dL (7-17); Calcium 9.7 mg/dL (8.4-10.2); Carbon Dioxide 23 mmol/L (22-30); Chloride 96 mmol/L (98-107); Glucose 119 mg/dL (74-99); Magnesium 1.4 mg/dL (1.6-2.3); Potassium 4.2 mmol/L (3.5-5.1); Sodium 131 mmol/L (137-145); Total Bilirubin 0.6 mg/dL (0.2-1.3); Total Protein 6.8 g/dL (6.3-8.2)
--- NOTE | 2019-05-15 09:10 | ED ---
Nausea/Vomiting/Diarrhea HPI - General Chief complaint: Nausea/Vomiting/Diarrhea Stated complaint: Nausea, Vomiting Time Seen by Provider: 05/15/19 07:47 Source: patient, EMS, RN notes reviewed Mode of arrival: EMS Limitations: no limitations - History of Present Illness Initial comments: 73-year-old female presents emergency department via EMS chief complaint of nausea. Patient had ongoing issues with nausea and electrolyte issues. Patient states that she has not been vomiting she's had notes of diarrhea or constipation issues. Patient has been hospitalized for hyponatremia, hypokalemia and hypomagnesemia. Patient states that she feels just cough and feels that she may have lower leg checked again. She states that they believe this is related to her depression and anxiety and which have started on new medications. denies fever, chills, headache, dizziness, chest pain or shortness breath. - Related Data Home Medications Medication Instructions Recorded Confirmed Brimonidine Tartrate/Timolol 1 drop RIGHT EYE BID 08/03/17 05/08/19 [Combigan 0.2%-0.5% Eye Drops] Cholecalciferol [Vitamin D3 (25 1,000 unit PO DAILY 08/03/17 05/08/19 Mcg = 1000 Iu)] Levothyroxine Sodium [Synthroid] 88 mcg PO DAILY 08/03/17 05/08/19 Simvastatin [Zocor] 20 mg PO HS 08/03/17 05/08/19 Travoprost [Travatan Z 0.004%] 1 drop BOTH EYES HS 08/03/17 05/08/19 amLODIPine [Norvasc] 10 mg PO HS 08/03/17 05/08/19 Melatonin 5 mg PO HS 06/05/18 05/08/19 Multivitamins, Thera [Multivitamin 1 tab PO DAILY 06/05/18 05/08/19 (formulary)] Biotin 1,000 Mcg 1,000 mcg PO DAILY 06/15/18 05/08/19 LORazepam [Ativan] 1 mg PO TID PRN 05/08/19 05/08/19 Previous Rx's Medication Instructions Recorded Ondansetron [Zofran] 4 mg PO Q8HR PRN #30 tab 04/26/19 Lisinopril [Zestril] 20 mg PO DAILY #30 tab 05/03/19 Famotidine [Pepcid] 20 mg PO BID #60 tablet 05/10/19 Metoclopramide [Reglan] 10 mg PO TID PRN #15 tab 05/15/19 Allergies Allergy/AdvReac Type Severity Reaction Status Date / Time No Known Allergies Allergy Verified 05/08/19 08:52 Review of Systems ROS Statement: Those systems with pertinent positive or pertinent negative responses have been documented in the HPI. ROS Other: All systems not noted in ROS Statement are negative. 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 History of Any Multi-Drug Resistant Organisms: None Reported Past Surgical History: Cholecystectomy, Hysterectomy Additional Past Surgical History / Comment(s): uterine cancer, cataract surgery Past Anesthesia/Blood Transfusion Reactions: Postoperative Nausea & Vomiting (PONV) Past Psychological History: Anxiety Smoking Status: Never smoker Past Alcohol Use History: None Reported Past Drug Use History: None Reported - Past Family History Mother Family Medical History: No Reported History General Exam Limitations: no limitations General appearance: alert, in no apparent distress Head exam: Present: atraumatic, normocephalic, normal inspection Eye exam: Present: normal appearance, PERRL, EOMI. Absent: scleral icterus, conjunctival injection, periorbital swelling ENT exam: Present: normal exam, normal oropharynx, mucous membranes moist Neck exam: Present: normal inspection, full ROM. Absent: tenderness, meningismus, lymphadenopathy Respiratory exam: Present: normal lung sounds bilaterally. Absent: respiratory distress, wheezes, rales, rhonchi, stridor Cardiovascular Exam: Present: regular rate, normal rhythm, normal heart sounds. Absent: systolic murmur, diastolic murmur, rubs, gallop, clicks GI/Abdominal exam: Present: soft, normal bowel sounds. Absent: distended, tenderness, guarding, rebound, rigid Neurological exam: Present: alert, oriented X3, CN II-XII intact Skin exam: Present: warm, dry, intact, normal color. Absent: rash Course Vital Signs 05/15/19 07:55 Temperature 99.1 F Pulse Rate 76 Respiratory 16 Rate Blood Pressure 156/84 O2 Sat by Pulse 97 Oximetry Medical Decision Making - Medical Decision Making 73-year-old female presented from for ongoing nausea. This has been coming and going episodic issue. She has been evaluated several times found to have passed hyponatremia, hypokalemia hypomagnesemia. Patient's magnesium was slightly low at this time she was given Mag-Ox emergency department. Patient was hydrated given antiemetics. Patient will be discharged return parameters discussed. - Lab Data Result diagrams: 05/15/19 08:05 05/15/19 08:05 Lab Results 05/15/19 05/15/19 05/15/19 Range/Units 08:05 08:05 08:05 WBC 5.8 (3.8-10.6) k/uL RBC 4.12 (3.80-5.40) m/uL Hgb 12.6 (11.4-16.0) gm/dL Hct 36.1 (34.0-46.0) % MCV 87.5 (80.0-100.0) fL MCH 30.5 (25.0-35.0) pg MCHC 34.8 (31.0-37.0) g/dL RDW 12.2 (11.5-15.5) % Plt Count 324 (150-450) k/uL Neutrophils % 68 % Lymphocytes % 19 % Monocytes % 8 % Eosinophils % 3 % Basophils % 0 % Neutrophils # 4.0 (1.3-7.7) k/uL Lymphocytes # 1.1 (1.0-4.8) k/uL Monocytes # 0.5 (0-1.0) k/uL Eosinophils # 0.2 (0-0.7) k/uL Basophils # 0.0 (0-0.2) k/uL Sodium 131 L (137-145) mmol/L Potassium 4.2 (3.5-5.1) mmol/L Chloride 96 L (98-107) mmol/L Carbon Dioxide 23 (22-30) mmol/L Anion Gap 12 mmol/L BUN 12 (7-17) mg/dL Creatinine 0.72 (0.52-1.04) mg/dL Est GFR (CKD-EPI)AfAm >90 (>60 ml/min/1.73 sqM) Est GFR (CKD-EPI)NonAf 83 (>60 ml/min/1.73 sqM) Glucose 119 H (74-99) mg/dL Calcium 9.7 (8.4-10.2) mg/dL Magnesium 1.4 L (1.6-2.3) mg/dL Total Bilirubin 0.6 (0.2-1.3) mg/dL AST 21 (14-36) U/L ALT 25 (9-52) U/L Alkaline Phosphatase 51 (38-126) U/L Total Protein 6.8 (6.3-8.2) g/dL Albumin 4.2 (3.5-5.0) g/dL Amylase <30 L (30-110) U/L Lipase 51 (23-300) U/L Urine Color Yellow Urine Appearance Clear (Clear) Urine pH 6.5 (5.0-8.0) Ur Specific [place] 1.014 (1.001-1.035) Urine Protein Negative (Negative) Urine Glucose (UA) Negative (Negative) Urine Ketones 2+ H (Negative) Urine Blood Negative (Negative) Urine Nitrite Negative (Negative) Urine Bilirubin Negative (Negative) Urine Urobilinogen <2.0 (<2.0) mg/dL Ur Leukocyte Esterase Small H (Negative) Urine RBC 1 (0-5) /hpf Urine WBC 3 (0-5) /hpf Ur Squamous Epith Cells <1 (0-4) /hpf Urine Mucus Rare H (None) /hpf Disposition Clinical Impression: Nausea, Hypomagnesemia Disposition: HOME SELF-CARE Condition: Stable Instructions (If sedation given, give patient instructions): Acute Nausea and Vomiting (ED) Additional Instructions: Please return to the Emergency Department if symptoms worsen or any other concerns. Prescriptions: Metoclopramide [Reglan] 10 mg PO TID PRN #15 tab PRN Reason: GERD Is patient prescribed a controlled substance at d/c from ED?: No Referrals: Nonstaff,Physician [Primary Care Provider] - 1-2 days Time of Disposition: 09:58
[2019-05-15] MEDS ORDERED: MAGNESIUM OXIDE 400 MG TAB PO STA (09:48)
[2019-05-15] MEDS ORDERED: METOCLOPRAMIDE 5 MG/ML 2 ML VIAL IVP STA (09:48)
[2019-05-15 10:05] VITALS: BP 150/80; PULSE 80
== END 2019-05-15 10:04 | disposition home or self-care (01) ==
LOC: EC 07:45
DX: E83.42 Hypomagnesemia (principal); R05 Cough; E78.5 Hyperlipidemia, unspecified; I10 Essential (primary) hypertension; H40.9 Unspecified glaucoma; Z79.890 Hormone replacement therapy; Z79.899 Other long term (current) drug therapy; Z85.42 Personal history of malignant neoplasm of other parts of uterus; Z86.018 Personal history of other benign neoplasm; Z90.49 Acquired absence of other specified parts of digestive tract; Z90.710 Acquired absence of both cervix and uterus
CPT/HCPCS: 36415; 80053; 82150; 83690; 83735; 85025; 81001; 99284; 96374; 96375 ×2; 96361; J1200; J2765; J2405

== ENCOUNTER → 2019-05-24 | Outpatient (CLI) | payer MEDICARE ==
--- NOTE | 2019-05-24 10:35 | CT ---
EXAMINATION TYPE: CT abdomen pelvis w con DATE OF EXAM: 05/24/2019 COMPARISON: None INDICATION: Nausea DLP: 436.2 mGycm, Automated exposure control for dose reduction was used. CONTRAST: 80 mL of Isovue 300. Study performed with Oral Contrast TECHNIQUE: Axial images were obtained from above the diaphragm to the pubic rami in the axial plane a t 5 mm thick sections. Reconstructed images are reviewed on the computer in the coronal plane. FINDINGS: Limited CT sections are obtained the lung bases. The lung bases are clear. CT ABDOMEN: Liver: Normal Spleen: Normal Pancreas: Normal Adrenal glands: The adrenal glands are normal. Gallbladder: Surgically absent Kidneys: No masses are evident. No hydronephrosis is present. There is a 2.1 cm cyst along the infe rior medial left kidney measuring 15 Hounsfield units. Delayed images were obtained through the kidn eys, which remain unremarkable. Aorta: Vascular calcification is within the aorta. Inferior vena cava: Normal. CT PELVIS: Loops of bowel within the abdomen and pelvis are normal. There are loops of bowel which are incom pletely distended or lack oral contrast limiting their evaluation. Appendix: Not clearly identified. No suspicious tubular structures or inflammatory changes are eviden t. Urinary bladder: Normal. Genitourinary structures: Uterus and ovaries are not identified. No free fluid within the pelvis. Osseous structures: No suspicious lytic or sclerotic lesions. Lymphadenopathy: No suspicious lymphadenopathy is evident. Small inguinal lymph nodes are noted bilat erally. IMPRESSIONS: 1. No suspicious changes to suggest recurrent or metastatic uterine cancer. 2. No suspicious abnormality for nausea. 3. Simple inferior pole left renal cyst.
== END | disposition home or self-care (01) ==
LOC: RADCTMAIN 07:21
PROVIDERS: ATTEND Nurse Practitioner Adult Health
DX: N28.1 Cyst of kidney, acquired (principal)
CPT/HCPCS: 82565; 84520; 74177; 36415; Q9967

== ENCOUNTER 2019-06-08 20:40 | Emergency (ER) | payer MEDICARE ==
[2019-06-08] MEDS ORDERED: SODIUM CHLORIDE 0.9% 500 ML 500 ML IV STA (21:14)
--- NOTE | 2019-06-08 21:14 | ED ---
Nausea/Vomiting/Diarrhea HPI - General Chief complaint: Nausea/Vomiting/Diarrhea Stated complaint: nausea Time Seen by Provider: 06/08/19 21:13 Source: patient, EMS Mode of arrival: EMS - History of Present Illness Initial comments: Marcia is a 74-year-old female who presents to the emergency department today for reevaluation of persistent nausea. Patient states she's had nausea for the entire month of May however reviewing medical records patient has been admitted multiple times throughout April and May reporting nausea eating back to mid March. Patient states that she's not had any vomiting or abdominal pain but has felt persistently nauseated which is resulted in decreased by mouth intake. Since this nausea developed the patient is seen primary care physician, she was prescribed Lexapro for her anxiety and her by mouth Xanax was changed Ativan. This had no improvement. She's also been prescribed Zofran ODT and Reglan which she reports doesn't improve her nausea at all. She's been admitted 2 times for hyponatremia in the past 6 weeks. Patient called EMS yesterday with a complaint of diarrhea however upon their arrival she did she not had any diarrhea and declined transport to the hospital, she contacted EMS again earlier today with complaint of nausea however upon their arrival vital signs were normal she again declined transport to the hospital, this evening due to persistent nausea patient decided to come to the ER for further evaluation. The patient's daughter bedside expresses concern that some of the patient's nausea may be due to her anxiety and depression. She reports that over the past couple of months the patient has been under significant emotional stress, both of her cats , her neighbor and her son who is her caregiver and her have not been getting along well. - Related Data Home Medications Medication Instructions Recorded Confirmed Brimonidine Tartrate/Timolol 1 drop RIGHT EYE BID 08/03/17 06/08/19 [Combigan 0.2%-0.5% Eye Drops] Levothyroxine Sodium [Synthroid] 88 mcg PO DAILY 08/03/17 06/08/19 Simvastatin [Zocor] 20 mg PO HS 08/03/17 06/08/19 Travoprost [Travatan Z 0.004%] 1 drop BOTH EYES HS 08/03/17 06/08/19 amLODIPine [Norvasc] 10 mg PO HS 08/03/17 06/08/19 Melatonin 5 mg PO HS 06/05/18 06/08/19 ALPRAZolam [Xanax] 0.5 mg PO Q6H PRN 06/08/19 06/08/19 Previous Rx's Medication Instructions Recorded Ondansetron [Zofran] 4 mg PO Q8HR PRN #30 tab 04/26/19 Lisinopril [Zestril] 20 mg PO DAILY #30 tab 05/03/19 Metoclopramide [Reglan] 10 mg PO TID PRN #15 tab 05/15/19 Allergies Allergy/AdvReac Type Severity Reaction Status Date / Time No Known Allergies Allergy Verified 06/08/19 21:07 Review of Systems ROS Statement: Those systems with pertinent positive or pertinent negative responses have been documented in the HPI. ROS Other: All systems not noted in ROS Statement are negative. 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 History of Any Multi-Drug Resistant Organisms: None Reported Past Surgical History: Cholecystectomy, Hysterectomy Additional Past Surgical History / Comment(s): uterine cancer, cataract surgery Past Anesthesia/Blood Transfusion Reactions: Postoperative Nausea & Vomiting (PONV) Past Psychological History: Anxiety Smoking Status: Never smoker Past Alcohol Use History: None Reported Past Drug Use History: None Reported - Past Family History Mother Family Medical History: No Reported History Course Vital Signs 06/08/19 06/08/19 06/08/19 20:44 22:24 22:49 Temperature 98.9 F 98.7 F Pulse Rate 80 84 Respiratory 18 16 Rate Blood Pressure 173/95 176/86 O2 Sat by Pulse 98 97 Oximetry Medical Decision Making - Medical Decision Making The patient was seen and evaluated, history is obtained from the patient, review of medical record and family at bedside Repeat labs and imaging were ordered, given the patient's persistence of nausea for a number of weeks and history of cancer CT scan of the brain was obtained to evaluate for any possible intracranial process contributing to nausea. Labs were unremarkable mild hyponatremia with a sodium of 133, over patient received 500 mL of normal saline, I do not feel that this level of hyponatremia warrants admission to the hospital. Patient's daughter and agreement with this. Patient was given Reglan and Benadryl. Patient resting more comfortably now. At this time patient stable for discharge home with outpatient follow-up with gastr oenterology. All questions pertaining care were answered return parameters were discussed patient was discharged home in stable condition. - Lab Data Result diagrams: 06/08/19 21:36 06/08/19 21:36 Lab Results 06/08/19 06/08/19 Range/Units 21:36 21:36 WBC 6.4 (3.8-10.6) k/uL RBC 4.34 (3.80-5.40) m/uL Hgb 13.0 (11.4-16.0) gm/dL Hct 37.5 (34.0-46.0) % MCV 86.4 (80.0-100.0) fL MCH 30.1 (25.0-35.0) pg MCHC 34.8 (31.0-37.0) g/dL RDW 12.1 (11.5-15.5) % Plt Count 357 (150-450) k/uL Neutrophils % 62 % Lymphocytes % 23 % Monocytes % 9 % Eosinophils % 2 % Basophils % 1 % Neutrophils # 3.9 (1.3-7.7) k/uL Lymphocytes # 1.5 (1.0-4.8) k/uL Monocytes # 0.6 (0-1.0) k/uL Eosinophils # 0.1 (0-0.7) k/uL Basophils # 0.1 (0-0.2) k/uL Sodium 133 L (137-145) mmol/L Potassium 4.1 (3.5-5.1) mmol/L Chloride 98 (98-107) mmol/L Carbon Dioxide 24 (22-30) mmol/L Anion Gap 11 mmol/L BUN 12 (7-17) mg/dL Creatinine 0.65 (0.52-1.04) mg/dL Est GFR (CKD-EPI)AfAm >90 (>60 ml/min/1.73 sqM) Est GFR (CKD-EPI)NonAf 87 (>60 ml/min/1.73 sqM) Glucose 99 (74-99) mg/dL Calcium 10.2 (8.4-10.2) mg/dL Total Bilirubin 0.4 (0.2-1.3) mg/dL AST 20 (14-36) U/L ALT 24 (9-52) U/L Alkaline Phosphatase 57 (38-126) U/L Total Protein 7.0 (6.3-8.2) g/dL Albumin 4.4 (3.5-5.0) g/dL Lipase 46 (23-300) U/L Disposition Clinical Impression: Nausea Disposition: HOME SELF-CARE Condition: Stable Instructions (If sedation given, give patient instructions): Acute Nausea and Vomiting (ED) Is patient prescribed a controlled substance at d/c from ED?: No Referrals: Tommy Lewis MD [Primary Care Provider] - 1-2 days
[2019-06-08 21:59] LABS: Basophils # (A) 0.1 k/uL (0-0.2); Basophils % (A) 1 %; Eosinophils # (A) 0.1 k/uL (0-0.7); Eosinophils % (A) 2 %; HCT 37.5 % (34.0-46.0); Lymphocytes # (A) 1.5 k/uL (1.0-4.8); Lymphocytes % (A) 23 %; MCH 30.1 pg (25.0-35.0); MCHC 34.8 g/dL (31.0-37.0); MCV 86.4 fL (80.0-100.0); Mean Platelet Volume 5.7; Monocytes # (A) 0.6 k/uL (0-1.0); Monocytes % (A) 9 %; Neutrophils # (A) 3.9 k/uL (1.3-7.7); Neutrophils % (A) 62 %; Platelet Count 357 k/uL (150-450); RBC 4.34 m/uL (3.80-5.40); RDW 12.1 % (11.5-15.5); WBC 6.4 k/uL (3.8-10.6)
[2019-06-08 22:09] LABS: ALT 24 U/L (9-52); AST 20 U/L (14-36); African American GFR (CKD) >90 (>60 ml/min/1.73 sqM); Albumin 4.4 g/dL (3.5-5.0); Alkaline Phosphatase 57 U/L (38-126); Anion Gap 11 mmol/L; Blood Urea Nitrogen 12 mg/dL (7-17); Calcium 10.2 mg/dL (8.4-10.2); Carbon Dioxide 24 mmol/L (22-30); Chloride 98 mmol/L (98-107); Glucose 99 mg/dL (74-99); Potassium 4.1 mmol/L (3.5-5.1); Sodium 133 mmol/L (137-145); Total Bilirubin 0.4 mg/dL (0.2-1.3)
--- NOTE | 2019-06-08 22:16 | CT ---
EXAMINATION TYPE: CT brain wo con DATE OF EXAM: 06/08/2019 HISTORY: Nausea and weakness. CT DLP: 1103.4 mGycm. Automated Exposure Control for Dose Reduction was Utilized. TECHNIQUE: CT scan of the head is performed without contrast. COMPARISON: None. FINDINGS: There is no acute intracranial hemorrhage or midline shift identified. There is diffuse v entricular and sulcal prominence consistent with diffuse age-related cerebral atrophy. Atrophy most p rominent over the bilateral frontal lobes. Some prominence of CSF could reflect megacisterna magna. T here is low-attenuation in the periventricular white matter consistent with chronic small vessel isch emic change. There is 2.3 cm mucous retention cyst or polyp in the inferior posterior right maxillar y sinus. The globes are intact and the visualized sinuses are otherwise clear. IMPRESSION: No acute intracranial hemorrhage or midline shift. There is mild to moderate diffuse ag e-related cerebral atrophy and chronic small vessel ischemic change noted.
[2019-06-08] MEDS ORDERED: METOCLOPRAMIDE 5 MG/ML 2 ML VIAL IVP STA (22:17)
[2019-06-08] MEDS ORDERED: diphenhydrAMINE 50 MG/ML 1 ML VIAL IVP STA (22:17)
--- NOTE | 2019-06-08 22:17 | XR ---
EXAMINATION TYPE: XR KUB DATE OF EXAM: 06/08/2019 10:08 PM CLINICAL HISTORY: Persistent nausea. TECHNIQUE: Two Upright KUB images of the abdomen are obtained. COMPARISON: Abdominal x-ray May 08, 2019. CT abdomen and pelvis May 24, 2019. FINDINGS: Scattered gas is seen in non-distended stomach and small bowel loops. Gas and fecal materia l is seen in non-distended colon. Surgical clips along the bilateral pelvic martínez are redemonstrated. Cholecystectomy clips are redemonstrated. No pneumoperitoneum. Lung bases are clear. Multilevel spur ring the spine is redemonstrated. Moderate to severe narrowing of both hip joints again seen. IMPRESSION: Overall nonobstructive bowel gas pattern remains present.
[2019-06-08 22:27] VITALS: BP 176/86; PULSE 84; RESP 16
[2019-06-08 22:50] VITALS: TEMP 98.7
--- NOTE | 2019-06-09 05:18 | CDI ---
Documentation Clarification OP Dear Nicole Quach, DO Please do addendum to ED report for missing Physical examination. Thank you, Artemio Harden Electrical Laboratory Technician If you have any questions, please contact Conservation Science Teacher at [phone] [facility]
== END 2019-06-08 22:50 | disposition home or self-care (01) ==
LOC: EC 20:40
DX: E87.1 Hypo-osmolality and hyponatremia (principal); E78.5 Hyperlipidemia, unspecified; I10 Essential (primary) hypertension; H40.9 Unspecified glaucoma; Z85.42 Personal history of malignant neoplasm of other parts of uterus; Z98.49 Cataract extraction status, unspecified eye; Z79.890 Hormone replacement therapy; Z79.899 Other long term (current) drug therapy
CPT/HCPCS: 99284; 96374; 96375; 96361; 36415; 80053; 83690; 85025; 74018; 70450; J1200; J2765